=== PATIENT | female | born 1945 | race Caucasian/White ===

== ENCOUNTER 2023-05-12 19:56 | Emergency (ER) | payer OTHER, SELFPAY ==
[2023-05-12 20:11] LABS: % Basophils 0.3 % (0-2); % Eosinophils 0.7 % (0-6); % Immature Granulocytes 1.1 % (0-0.5); % Lymphocytes 7.9 % (20.5-51.1); % Monocytes 6.3 % (1.7-9.3); % Neutrophils 83.7 % (42.2-75.2); Absolute Basophils 0.1 10^3/uL (0-0.2); Absolute Eosinophils 0.1 10^3/uL (0-0.7); Absolute Immature Granulocytes 0.2 10^3/uL (0-0.05); Absolute Lymphocytes 1.2 10^3/uL (1.2-3.4); Absolute Monocytes 0.9 10^3/uL (0.1-0.6); Absolute Neutrophils 12.4 10^3/uL (1.4-6.5); Hematocrit 40.4 % (37.0-47.0); Hemoglobin 13.5 g/dL (12.0-16.0); Mean Corp Hgb Conc. 33.4 g/dL (33.0-37.0); Mean Corpuscular Hgb 28.5 pg (27.0-31.0); Mean Corpuscular Volume 85.2 fL (81.0-99.0); Nucleated Red Blood Cells % 0 %; Platelet Count 371 10^3/uL (130-400); Red Blood Cell Count 4.74 10^6/uL (4.20-5.40); Red Cell Dist. Width 15.1 % (11.5-14.5); White Blood Cell Count 14.9 10^3/uL (4.8-10.8)
[2023-05-12 20:24] LABS: Lactic Acid 1.8 mmol/L (0.7-2.0)
[2023-05-12 20:26] LABS: ALT (SGPT) < 10 U/L (0-35); AST (SGOT) 18 U/L (14-36); Albumin 3.6 g/dl (3.5-5.0); Alkaline Phosphatase 84 U/L (38-126); Blood Urea Nitrogen 37 mg/dl (7-17); Calcium 9.9 mg/dl (8.4-10.2); Carbon Dioxide 20 mmol/L (22-30); Chloride 106 mmol/L (98-107); Glucose 156 mg/dl (70-99); Potassium 3.9 mmol/L (3.5-5.1); Sodium 138 mmol/L (135-145); Total Bilirubin 0.8 mg/dl (0.2-1.3); Total Protein 8.3 g/dl (6.3-8.2); eGFR 35.23
[2023-05-12 20:27] LABS: Lipase 96 U/L (23-300)
[2023-05-12 21:07] VITALS: BP 105/65
[2023-05-12 22:00] VITALS: BP 148/67
--- NOTE | 2023-05-12 22:13 | ED.GENMED ---
History of Present Illness
General
Chief Complaint: Abdominal Symptoms
Source: patient
Time Seen by Provider: 05/12/23 22:05
Nursing documentation reviewed up to this point in time: agreed with
Travel History
Have you had any contact with someone who has COVID-19?: No
Do you have any symptoms of coronavirus? Fever > 100 degrees, chills, cough, shortness of breath, sore throat, loss of taste or smell, muscle aches, or headache?: No
History of Present Illness
History of Present Illness:
This a pleasant 77-year-old female that presents with 5 days of progressively worsening abdominal pain. Patient states that for the last 5 days she has been unable to have a bowel movement. She does report some left lower abdominal pain that is
been present during this time. She did have some nausea without vomiting. Patient does have a history of bowel problems stating that she has had constipation for the last 5 days but prior to that she had nonbloody diarrhea for months. Patient is
on home oxygen and has chronic dyspnea.
Vital signs are stable. Patient not hypoxic
Nursing note reviewed. I agree with nursing documentation up to this point in time.
Home Meds and allergies reviewed.
NUMBER AND COMPLEXITY OF PROBLEMS ADDRESSED AT THE ENCOUNTER
� Chronic conditions affecting care: Dyspnea on home oxygen, hypertension, irregular bowel habits
� Acute Exacerbation and/or Progression of Chronic Illness:
� Differential Diagnosis includes: Constipation, bowel obstruction, diverticulitis
AMOUNT AND/OR COMPLEXITY OF DATA TO BE REVIEWED AND ANALYZED
I performed an independent evaluation of the following and my interpretation is:
EKG:
CT:
X-rays:
Ultrasound:
Laboratory Studies: White blood cell count 14.9, creatinine of 1.5
Other:
Review of other/old records: Previous creatinine on 04/24/2022 was 1.0
Clinical information was obtained by an independent historian:
Prescriptions/Medications Considered but not given:
Further testing considered but not performed: CT scan considered but due to patient's renal function, deferred
RISK OF COMPLICATIONS AND/OR MORBIDITY OR MORTALITY OF PATIENT MANAGEMENT
Social determinants of health affecting care: Good Social Support
Discussion with other providers:
Escalation of care including admission/observation vs risk of discharge considered:
CRITICAL CARE NOTE:
Total Time (exclusive of procedures):
Update:
Past History
Past History
ED Past Medical History: COPD and HTN
ED Past Surgical History: Cholecystectomy and Gynecological
Social History
Tobacco: Former smoker
Alcohol: None
Drug: None
Personal:
Living: with family
Review of Systems
Review of Systems
Allergies reviewed?: Yes
All Other Systems: ROS reviewed and negative except as documented in HPI and ROS
ABD/GI: Reports abdominal pain and constipated; Denies vomiting or diarrhea
: Denies incontinence
Phy Exam
General Physical Exam
General Presentation: well appearing and no apparent distress
General Skin: warm and dry
General Habitus: normal
General Mental: alert
General Hydration: appears well hydrated
ENT Exam
ENT Exam: EOMI, pharynx normal, neck supple and normocephalic
Eye Exam
Eye Exam: PERRL, cornea clear and conjunctiva normal
Cardiovascular Exam
Cardiovascular Exam: regular rate/rhythm, no edema, no murmur and normal peripheral pulses
Pulmonary Exam
Pulmonary Exam: lungs clear, no respiratory distress, no rales, no crackles, no rhonchi, no stridor, no wheezing and no cough
Gastrointestinal Exam
Gastrointestinal Exam: non tender, soft, no organomegaly, no pulsatile mass and non distended
Palpation: left lower quadrant: Mild tenderness
Auscultation of Abdomen: hyperactive
Neurological Exam
Neurological Exam: alert, oriented x3, no motor deficits and speech normal
Musculoskeletal Exam
Musculoskeletal Exam: full ROM and no edema
Skin Exam
Skin Exam: normal color, warm/dry, no rash and no petechia
Psychiatric Exam
Psychiatric Exam: normal mood/affect
Course
Orders/Labs/Results
Orders:
Orders
05/12/23 20:05
Complete Blood Count/With Diff Urgent
Comprehensive Metabolic Panel Urgent
Lactic Acid Urgent
Lipase Urgent
05/12/23 22:23
CR Obstruct Series W/pa Chest Urgent
Comment:
Reason For Exam: Abdominal pain
05/12/23 22:26
0.9% Sodium Chloride 500 ml [Nss] 500 ml IV BOLUS
05/13/23 00:13
Enema- Treatment ONCE
Type: Soap Suds
Abnormal Lab Results
05/12/23
20:05
WBC 14.9 H 10^3/uL
(4.8-10.8)
RDW 15.1 H %
(11.5-14.5)
Abs Immat Gran (auto) 0.2 H 10^3/uL
(0-0.05)
Absolute Neuts (auto) 12.4 H 10^3/uL
(1.4-6.5)
Absolute Monos (auto) 0.9 H 10^3/uL
(0.1-0.6)
Immature Gran % 1.1 H %
(0-0.5)
Neutrophils % 83.7 H %
(42.2-75.2)
Lymphocytes % 7.9 L %
(20.5-51.1)
Carbon Dioxide 20 L mmol/L
(22-30)
BUN 37 H mg/dl
(7-17)
Creatinine 1.5 H mg/dL
(0.6-1.0)
Glucose 156 H mg/dl
(70-99)
Total Protein 8.3 H g/dl
(6.3-8.2)
05/12/23 20:05
05/12/23 20:05
Vital Signs
Initial and Last Documented VS:
Initial Vital Signs
Temp Pulse Resp Pulse Ox
99.9 F 99 25 89
05/12/23 20:00 05/12/23 20:00 05/12/23 20:00 05/12/23 20:00
Last Documented Vital Signs
Temp Pulse Resp BP Pulse Ox
99.9 F 81 21 139/60 93
05/12/23 20:00 05/13/23 02:15 05/13/23 02:00 05/13/23 02:00 05/13/23 01:08
*Critical Care Note
Total Time (30-74mins, 75-104mins- exclusive of procedures): Not Applicable
Update Note
Update Note:
05/13/2023 0242 AM: Patient had several large formed stool bowel movements and feels much better. Wishes to be discharged home. She does not have a ride at this point. She will call for a ride in the morning.
ED Attending Note
-
Portions of this chart may have been created with voice recognition software.� Occasional wrong word or��sound alike� substitutions may have occurred due to the inherent limitations of voice recognition software.
Discharge Plan
Departure
Patient Disposition: Home (Routine Discharge)
Date of Disposition: 05/13/23
Time of Disposition: 02:43
Patient with high blood pressure during this ER visit?: Yes
Condition: Good
Discharge Problem:
Constipation, Abdominal pain
Prescriptions:
No Action
celecoxib 200 MG capsule
200 mg PO DAILY
nifedipine 30 MG tablet extended release
30 mg PO BID
repaglinide 0.5 MG tablet
0.5 mg PO BID@0800,1700
[id number] [Francis (with collagen)] 1 EACH powder in packet
1 ea PO BID
furosemide [Lasix] 40 MG tablet
40 mg PO BID Qty: 35 0RF
Rx Instructions:
Twice daily for 5 days than
Once daily for maintenence
losartan 50 MG tablet
50 mg PO DAILY Qty: 30 0RF
Referrals:
Nicki Yuan DO [Family Provider] -
Activity Restrictions/Additional Instructions:
It was a pleasure meeting you and taking part in your care. We hope for your continued healing and wellness.
Please read discharge instructions in their entirety. However, they are for general education and may not describe your exact diagnosis at discharge. Information on your ER visit and medical conditions were discussed with you along with appropriate
follow up information...
If indicated, please take your medications as instructed and indicated on discharge paperwork.
Please schedule a follow up appointment as directed. Call to schedule an appointment
Please return to the emergency department with ANY change in, persisting, or worsening of symptoms. If any of your symptoms do not improve, or persist, or become more severe within 6-12 hours, please return to the emergency department for further
care.
Please return to the emergency department if you develop a headache, neck pain/stiffness, fever greater than 100.4F, chest pain, shortness of breath, persistent nausea, vomiting, slurred speech, difficulty walking, numbness/tingling, weakness, signs
of infection or any other symptoms that are worrisome to you.
If you have any questions or concerns please do not hesitate to call the Hospital at or E-mail me directly at [email or web address]
Interventions
Interventions:
*Risk Screen - Suicide Last Done: 05/12/23 20:00
*General Assessment Last Done: 05/12/23 19:59
*Neglect/Abuse Screening Last Done: 05/12/23 20:00
ED- Fall Risk Assessment Last Done: 05/12/23 23:11
*ED COVID-19 Vaccine History Last Done: 05/12/23 19:59
SY-Piaeke-Jpfjanrrxt Assessment Last Done: 05/12/23 20:02
[2023-05-12] MEDS: NSS 500 IV (22:30)
[2023-05-12 23:26] VITALS: BP 142/60
[2023-05-13] VITALS: BP 143/64
[2023-05-13 01:08] VITALS: BP 117/82
[2023-05-13 02:00] VITALS: BP 139/60
[2023-05-13 03:00] VITALS: BP 138/51
[2023-05-13] MEDS: CITROMA 300 ML PO (03:06)
[2023-05-13 04:00] VITALS: BP 123/55
[2023-05-13 05:00] VITALS: BP 121/54
== END 2023-05-13 06:08 | disposition home or self-care (01) ==
LOC: EMR 19:56
PROVIDERS: Emergency Medicine; EMERGENCY PHYSICIAN Student in an Organized Health Care Education/Training Program; FAMILY PHYSICIAN Family Medicine
DX: R10.9 Unspecified abdominal pain (principal); K59.00 Constipation, unspecified; I10 Essential (primary) hypertension; Z87.891 Personal history of nicotine dependence
CPT/HCPCS: 99284; 96360; 74022; 80053; 83605; 83690; 85025

== ENCOUNTER → 2023-06-17 10:44 | Outpatient (REF) | payer OTHER, SELFPAY ==
[2023-06-17 11:35] LABS: % Basophils 0.7 % (0-2); % Eosinophils 1.6 % (0-6); % Immature Granulocytes 0.9 % (0-0.5); % Lymphocytes 16.7 % (20.5-51.1); % Neutrophils 75.1 % (42.2-75.2); Absolute Basophils 0.1 10^3/uL (0-0.2); Absolute Eosinophils 0.2 10^3/uL (0-0.7); Absolute Immature Granulocytes 0.1 10^3/uL (0-0.05); Absolute Lymphocytes 2.3 10^3/uL (1.2-3.4); Absolute Monocytes 0.7 10^3/uL (0.1-0.6); Absolute Neutrophils 10.3 10^3/uL (1.4-6.5); Hematocrit 43.8 % (37.0-47.0); Hemoglobin 13.6 g/dL (12.0-16.0); Mean Corp Hgb Conc. 31.1 g/dL (33.0-37.0); Mean Corpuscular Volume 90.1 fL (81.0-99.0); Mean Platelet Volume 8.3 fL (7.4-10.4); Nucleated Red Blood Cells % 0 %; Platelet Count 446 10^3/uL (130-400); Red Blood Cell Count 4.86 10^6/uL (4.20-5.40); Red Cell Dist. Width 15.6 % (11.5-14.5); White Blood Cell Count 13.7 10^3/uL (4.8-10.8)
[2023-06-17 11:50] LABS: Glycohemoglobin (HgbA1c) 6.3 % (4.0-5.6)
[2023-06-17 12:12] LABS: ALT (SGPT) 12 U/L (0-35); AST (SGOT) 18 U/L (14-36); Albumin 4.1 g/dl (3.5-5.0); Alkaline Phosphatase 84 U/L (38-126); Blood Urea Nitrogen 35 mg/dl (7-17); Calcium 10.4 mg/dl (8.4-10.2); Carbon Dioxide 17 mmol/L (22-30); Chloride 109 mmol/L (98-107); Glucose 152 mg/dl (70-99); HDL Cholesterol 55 mg/dl; LDL Cholesterol, Calculated 107 mg/dl; Sodium 140 mmol/L (135-145); Total Bilirubin 0.5 mg/dl (0.2-1.3); Total Cholesterol 187 mg/dl (50-199); Total Protein 8.9 g/dl (6.3-8.2); Triglyceride 129 mg/dl (10-149); Very Low Density Lipoprotein 25 mg/dl (0-30)
[2023-06-17 12:34] LABS: TSH 1.23 uIU/ml (0.47-4.68)
== END ==
LOC: REG 10:44
PROVIDERS: ATTENDING PHYSICIAN Internal Medicine Interventional Cardiology; FAMILY PHYSICIAN Family Medicine
DX: I10 Essential (primary) hypertension (principal); R06.02 Shortness of breath; E11.22 Type 2 diabetes mellitus with diabetic chronic kidney disease
CPT/HCPCS: 36415; 71046; 80053; 80061; 83036; 84443; 85025

== ENCOUNTER → 2023-09-30 11:36 | Outpatient (REF) | payer OTHER, SELFPAY ==
[2023-09-30 12:54] LABS: Hemoglobin 13.3 g/dL (12.0-16.0)
[2023-09-30 13:33] LABS: Blood Urea Nitrogen 29 mg/dl (7-17); Calcium 10.1 mg/dl (8.4-10.2); Carbon Dioxide 16 mmol/L (22-30); Chloride 107 mmol/L (98-107); Glucose 134 mg/dl (70-99); Phosphorus 4.9 mg/dl (2.5-4.5); Potassium 4.4 mmol/L (3.5-5.1); Sodium 138 mmol/L (135-145); eGFR 38.27
[2023-09-30 17:18] LABS: Protein/creatinine Ratio 14.9; Urine Protein 1089 mg/dl
[2023-10-03 08:53] LABS: Intact PTH 137.2 pg/ml (13.6-85.8)
== END ==
LOC: RAD 11:36
PROVIDERS: ATTENDING PHYSICIAN Specialist; FAMILY PHYSICIAN Family Medicine
DX: N18.31 Chronic kidney disease, stage 3a (principal); I10 Essential (primary) hypertension; E83.52 Hypercalcemia
CPT/HCPCS: 36415; 76770; 80048; 82570; 83970; 84100; 84156; 85018

== ENCOUNTER 2024-05-05 21:14 | Inpatient (IN) | payer OTHER, SELFPAY ==
[2024-05-05] VITALS (12 sets, daily range): BP systolic 109–157; BP diastolic 46–75; BMI 35.4
[2024-05-05 17:09] LABS: % Basophils 0.4 % (0-2); % Immature Granulocytes 1.1 % (0-0.5); % Lymphocytes 4.5 % (20.5-51.1); % Monocytes 3.7 % (1.7-9.3); % Neutrophils 90.3 % (42.2-75.2); Absolute Basophils 0.1 10^3/uL (0-0.2); Absolute Immature Granulocytes 0.2 10^3/uL (0-0.05); Absolute Lymphocytes 0.9 10^3/uL (1.2-3.4); Absolute Monocytes 0.8 10^3/uL (0.1-0.6); Absolute Neutrophils 18.3 10^3/uL (1.4-6.5); Hematocrit 41.9 % (37.0-47.0); Hemoglobin 13.4 g/dL (12.0-16.0); Mean Corpuscular Hgb 28.8 pg (27.0-31.0); Mean Corpuscular Volume 89.9 fL (81.0-99.0); Mean Platelet Volume 8.1 fL (7.4-10.4); Nucleated Red Blood Cells % 0 %; Platelet Count 384 10^3/uL (130-400); Red Blood Cell Count 4.66 10^6/uL (4.20-5.40); Red Cell Dist. Width 15.1 % (11.5-14.5); White Blood Cell Count 20.3 10^3/uL (4.8-10.8)
[2024-05-05 17:30] LABS: ALT (SGPT) 11 U/L (0-35); AST (SGOT) 16 U/L (14-36); Alkaline Phosphatase 89 U/L (38-126); Blood Urea Nitrogen 45 mg/dl (7-17); Carbon Dioxide 13 mmol/L (22-30); Chloride 104 mmol/L (98-107); Glucose 172 mg/dl (70-99); Lipase 76 U/L (23-300); Potassium 4.6 mmol/L (3.5-5.1); Sodium 134 mmol/L (135-145); Total Protein 8.4 g/dl (6.3-8.2); eGFR 11.85
[2024-05-05] MEDS: NSS 500 IV (18:21)
[2024-05-05 18:48] LABS: Urine Albumin 4+ (Neg - Trace); Urine Bilirubin Negative (Negative); Urine Character Mucous (Clear); Urine Color Yellow; Urine Glucose Negative (Negative); Urine Ketone Negative (Negative); Urine Leukocyte 3+ (Negative); Urine Nitrite Negative (Negative); Urine Occult Blood 4+ (Negative); Urine Urobilinogen Negative (Neg - 1+)
--- NOTE | 2024-05-05 19:00 | ED.GENMED ---
History of Present Illness
<Malik Pyle MD - Last Filed: 05/05/24 19:45>
General
Chief Complaint: Abdominal Pain
Time Seen by Provider: 05/05/24 17:56
<Celena Salazar NP - Last Filed: 05/05/24 23:11>
General
Source: patient
Exam Limitations: none
Nursing documentation reviewed up to this point in time: agreed with
History of Present Illness
History of Present Illness:
Patient to ED with complaint of LLQ abd. pain. Pain started on Thursday. Denies fever/chills. No n/v/d. Pain does not radiate. Reports she has no appetite but contines to drink water. Brought to ED by friend for eval.
Past History
<Malik Pyle MD - Last Filed: 05/05/24 19:45>
Past History
ED Past Medical History: COPD and HTN
ED Past Surgical History: Cholecystectomy and Gynecological
Social History
Tobacco: Former smoker
Alcohol: None
Drug: None
Personal:
Living: with family
Review of Systems
<Celena Salazar NP - Last Filed: 05/05/24 23:11>
Review of Systems
Allergies reviewed?: Yes
All Other Systems: ROS reviewed and negative except as documented in HPI and ROS
Constitutional: Reports no symptoms
EENT: Reports no symptoms
Respiratory: Reports no symptoms
Cardiac: Reports no symptoms
ABD/GI: Reports abdominal pain (LLQ) and anorexia
: Reports no symptoms
Musculoskeletal: Reports no symptoms
Skin: Reports no symptoms
Neurological: Reports no symptoms
Psychiatric: Reports no symptoms
Phy Exam
<Celena Salazar NP - Last Filed: 05/05/24 23:11>
General Physical Exam
General Presentation: mild distress
General age: appears stated age
General Skin: warm and dry
General Habitus: normal
General Mental: alert
Cardiovascular Exam
Cardiovascular Exam: regular rate/rhythm and no edema
Pulmonary Exam
Pulmonary Exam: lungs clear and no respiratory distress
Gastrointestinal Exam
Gastrointestinal Exam: normal bowel sounds, soft, no organomegaly, non distended and no cva tenderness
Palpation: left upper quadrant: No tenderness, left lower quadrant: Moderate tenderness, right upper quadrant: No tenderness and right lower quadrant: Minimal tenderness
Musculoskeletal Exam
Musculoskeletal Exam: full ROM and neuro vasc intact
Skin Exam
Skin Exam: normal color, warm/dry and no rash
Psychiatric Exam
Psychiatric Exam: normal mood/affect
Course
<Malik Pyle MD - Last Filed: 05/05/24 19:45>
Orders/Labs/Results
Orders:
Orders
05/05/24 Dinner
NPO
Allow oral meds: Yes
Allow clear liquids: No
NPO with Ice Chips: No
05/05/24 16:52
Complete Blood Count/With Diff Urgent
Comprehensive Metabolic Panel Urgent
Lipase Urgent
05/05/24 18:06
CT Abd/pel Without Iv Or Oral Urgent
Comment:
Reason For Exam: LLQ pain, ARF
Bladder Scan- Treatment ONCE
05/05/24 18:07
0.9% Sodium Chloride 500 ml [Nss] 500 ml IV BOLUS
05/05/24 18:12
Morphine Sulfate 2 mg IV NOW STA
Ondansetron Injectable [Zofran] 4 mg IV NOW STA
05/05/24 18:19
Urinalysis Reflex To Culture Urgent
Date Specimen was Collected: 05/05/24
Time Specimen was Collected: 18:18
Urine Microscopic Reflex Cult Urgent
Urine Culture Urgent
DIXON Source: U
Specimen Description:
Date Specimen was Collected: 05/05/24
Time Specimen was Collected: 18:18
05/05/24 19:05
Piperacillin/Tazo 3.375 Gram [Zosyn] 3.375 gram in 50 ml IV NOW
05/05/24 20:25
Dexamethasone Sod Phosphate [Decadron] 20 mg .ROUTE .STK-MED ONE
Fentanyl Citrate/Pf [Sublimaze] 100 mcg .ROUTE .STK-MED ONE
Lidocaine 2% Mpf [Xylocaine Mpf 2%] 100 mg .ROUTE .STK-MED ONE
Ondansetron Injectable [Zofran] 4 mg .ROUTE .STK-MED ONE
Propofol [Diprivan] 20 ml .ROUTE .STK-MED
05/05/24 20:29
Blood Culture Q30M
DIXON Source: Blood/Venous
Specimen Description:
Blood Culture Q30M
DIXON Source: Blood/Venous
Specimen Description:
05/05/24 20:41
Admit/Transfer Patient As Directed
Co-Sign Provider:
Level of Care: Inpatient admission
Assign to:: Telemetry
Physician / Group: tai treviño
Diagnosis: sepsis 2/2 to uti ,left obstr ureteral calc, juan f
Reason for Telemetry: Arrhythmia
Date to Stop Telemetry: 05/08/24
Time to Stop Telemetry: 11:00
Reason for Hospitalization: sepsis 2/2 to uti ,left obstr ureteral calc, juan f
Expected length of stay greater than two midnights?: Yes
ELOS- Estimated Length of Stay in days: 4
I certify the patient meets the requirements for IP care: Yes
Code Status As Directed
Resuscitation Status: Full Code
05/05/24 20:52
PRN Pain Medication Management As Directed
May give lesser potent ordered pain med per pt: Yes
preference::
Protocol:: Medication orders for pain may be administered in a
manner that supports deferring to patient preference
when the pt is:
- Requesting an ordered lesser potent pain medication.
Least to most potent pain medications are defined
as: acetaminophen < NSAID < tramadol < opioids
(morphine, oxycodone, hydromorphone).
- Requesting a lesser dose of the same medication IF
ORDERED.
- Requesting a less intrusive route of administration
if both routes are prescribed by the provider (PO <
IV).
05/05/24 22:12
0.9% Sodium Chloride 1000 ml [Nss] 1,000 ml IV 100 mls/hr
Acetaminophen [Tylenol] 650 mg PO Q4HPRN PRN
Bisacodyl [Dulcolax] 10 mg RECTAL [id number] PRN
Dextrose 50%-Water [Dextrose 50% Syringe] 12.5 grams IV [id number] PRN
Docusate W/Senna [Senokot-S] 1 tablet PO BIDPRN PRN
Ezetimibe [Zetia] 10 mg PO HS
Glucagon [GlucaGen] 1 mg IM PRN PRN
Metoprolol Xl [Toprol Xl] 25 mg PO HS
Polyethylene Glycol Powder [Miralax] 17 grams PO DAILYPRN PRN
05/05/24 22:12
UROLOGY CONSULT Routine
Consulting Provider: Kulwinder Kinsey
Was physician already notified: Yes
Comment: obst left ureter
Activity As Directed
Activity Level: As Tolerated
Bedside Glucose Monitoring As Directed
Frequency: AC&HS
Additional Instructions:: Change to q6h if pt on TPN, tube feeding or not eating
Intake/ Output As Directed
Frequency: Per unit guidelines
Pneumatic Compression Sleeves As Directed
Type: Knee high
Vital Signs As Directed
Frequency: Per unit guidelines
Weight As Directed
Frequency: Daily
Pt Eval And Treat Routine
Activity Level: As Tolerated
DX Deep Vein Thrombosis Video Routine
05/06/24 06:00
Complete Blood Count/With Diff IN AM
Comprehensive Metabolic Panel IN AM
Glycohemoglobin (HgbA1c) IN AM
05/06/24 07:30
Insulin Aspart Corrective Low [Novolog Flexpen-Low Resistance] See Protocol SC AC
05/07/24 06:00
Complete Blood Count/With Diff IN AM
Comprehensive Metabolic Panel IN AM
05/08/24 06:00
Complete Blood Count/With Diff IN AM
Comprehensive Metabolic Panel IN AM
05/08/24 11:00
DC Protocol for Telemetry ONCE
05/09/24 06:00
Complete Blood Count/With Diff IN AM
Comprehensive Metabolic Panel IN AM
Abnormal Lab Results
05/05/24 05/05/24
16:52 18:19
WBC 20.3 H 10^3/uL
(4.8-10.8)
MCHC 32.0 L g/dL
(33.0-37.0)
RDW 15.1 H %
(11.5-14.5)
Abs Immat Gran (auto) 0.2 H 10^3/uL
(0-0.05)
Absolute Neuts (auto) 18.3 H 10^3/uL
(1.4-6.5)
Absolute Lymphs (auto) 0.9 L 10^3/uL
(1.2-3.4)
Absolute Monos (auto) 0.8 H 10^3/uL
(0.1-0.6)
Immature Gran % 1.1 H %
(0-0.5)
Neutrophils % 90.3 H %
(42.2-75.2)
Lymphocytes % 4.5 L %
(20.5-51.1)
Sodium 134 L mmol/L
(135-145)
Carbon Dioxide 13 L* mmol/L
(22-30)
BUN 45 H mg/dl
(7-17)
Creatinine 3.7 H mg/dL
(0.6-1.0)
Glucose 172 H mg/dl
(70-99)
Total Protein 8.4 H g/dl
(6.3-8.2)
Ur Occult Blood Reflex 4+ A
(Negative)
Leukocyte Esterase Rfl 3+ A
(Negative)
Urine RBC 7-10 A /HPF
(0-2)
Urine WBC (Reflex) >100 A /HPF
(0-5)
Urine Bacteria (Reflex) Many A
(Negative)
Urine Albumin (Reflex) 4+ A
(Neg - Trace)
05/05/24 16:52
05/05/24 16:52
Vital Signs
Initial and Last Documented VS:
Initial Vital Signs
Temp Pulse Resp BP Pulse Ox
98.5 F 68 18 120/66 98
05/05/24 16:36 05/05/24 16:36 05/05/24 16:36 05/05/24 16:36 05/05/24 16:36
Last Documented Vital Signs
Temp Pulse Resp BP Pulse Ox
97 F 67 16 142/56 98
05/05/24 22:39 05/05/24 22:39 05/05/24 22:39 05/05/24 22:39 05/05/24 22:39
<Celena Salazar DIRECTOR STYLE - Last Filed: 05/05/24 23:11>
Orders/Labs/Results
Orders:
Orders
05/05/24 Dinner
NPO
Allow oral meds: Yes
Allow clear liquids: No
NPO with Ice Chips: No
05/05/24 16:52
Complete Blood Count/With Diff Urgent
Comprehensive Metabolic Panel Urgent
Lipase Urgent
05/05/24 18:06
CT Abd/pel Without Iv Or Oral Urgent
Comment:
Reason For Exam: LLQ pain, ARF
Bladder Scan- Treatment ONCE
05/05/24 18:07
0.9% Sodium Chloride 500 ml [Nss] 500 ml IV BOLUS
05/05/24 18:12
Morphine Sulfate 2 mg IV NOW STA
Ondansetron Injectable [Zofran] 4 mg IV NOW STA
05/05/24 18:19
Urinalysis Reflex To Culture Urgent
Date Specimen was Collected: 05/05/24
Time Specimen was Collected: 18:18
Urine Microscopic Reflex Cult Urgent
Urine Culture Urgent
DIXON Source: U
Specimen Description:
Date Specimen was Collected: 05/05/24
Time Specimen was Collected: 18:18
05/05/24 19:05
Piperacillin/Tazo 3.375 Gram [Zosyn] 3.375 gram in 50 ml IV NOW
05/05/24 20:25
Dexamethasone Sod Phosphate [Decadron] 20 mg .ROUTE .STK-MED ONE
Fentanyl Citrate/Pf [Sublimaze] 100 mcg .ROUTE .STK-MED ONE
Lidocaine 2% Mpf [Xylocaine Mpf 2%] 100 mg .ROUTE .STK-MED ONE
Ondansetron Injectable [Zofran] 4 mg .ROUTE .STK-MED ONE
Propofol [Diprivan] 20 ml .ROUTE .STK-MED
05/05/24 20:29
Blood Culture Q30M
DIXON Source: Blood/Venous
Specimen Description:
Blood Culture Q30M
DIXON Source: Blood/Venous
Specimen Description:
05/05/24 20:41
Admit/Transfer Patient As Directed
Co-Sign Provider:
Level of Care: Inpatient admission
Assign to:: Telemetry
Physician / Group: tai trevñio
Diagnosis: sepsis 2/2 to uti ,left obstr ureteral calc, juan f
Reason for Telemetry: Arrhythmia
Date to Stop Telemetry: 05/08/24
Time to Stop Telemetry: 11:00
Reason for Hospitalization: sepsis 2/2 to uti ,left obstr ureteral calc, juan f
Expected length of stay greater than two midnights?: Yes
ELOS- Estimated Length of Stay in days: 4
I certify the patient meets the requirements for IP care: Yes
Code Status As Directed
Resuscitation Status: Full Code
05/05/24 20:52
PRN Pain Medication Management As Directed
May give lesser potent ordered pain med per pt: Yes
preference::
Protocol:: Medication orders for pain may be administered in a
manner that supports deferring to patient preference
when the pt is:
- Requesting an ordered lesser potent pain medication.
Least to most potent pain medications are defined
as: acetaminophen < NSAID < tramadol < opioids
(morphine, oxycodone, hydromorphone).
- Requesting a lesser dose of the same medication IF
ORDERED.
- Requesting a less intrusive route of administration
if both routes are prescribed by the provider (PO <
IV).
05/05/24 22:12
0.9% Sodium Chloride 1000 ml [Nss] 1,000 ml IV 100 mls/hr
Acetaminophen [Tylenol] 650 mg PO Q4HPRN PRN
Bisacodyl [Dulcolax] 10 mg RECTAL [id number] PRN
Dextrose 50%-Water [Dextrose 50% Syringe] 12.5 grams IV [id number] PRN
Docusate W/Senna [Senokot-S] 1 tablet PO BIDPRN PRN
Ezetimibe [Zetia] 10 mg PO HS
Glucagon [GlucaGen] 1 mg IM PRN PRN
Metoprolol Xl [Toprol Xl] 25 mg PO HS
Polyethylene Glycol Powder [Miralax] 17 grams PO DAILYPRN PRN
05/05/24 22:12
UROLOGY CONSULT Routine
Consulting Provider: Kulwinder Kinsey
Was physician already notified: Yes
Comment: obst left ureter
Activity As Directed
Activity Level: As Tolerated
Bedside Glucose Monitoring As Directed
Frequency: AC&HS
Additional Instructions:: Change to q6h if pt on TPN, tube feeding or not eating
Intake/ Output As Directed
Frequency: Per unit guidelines
Pneumatic Compression Sleeves As Directed
Type: Knee high
Vital Signs As Directed
Frequency: Per unit guidelines
Weight As Directed
Frequency: Daily
Pt Eval And Treat Routine
Activity Level: As Tolerated
DX Deep Vein Thrombosis Video Routine
05/06/24 06:00
Complete Blood Count/With Diff IN AM
Comprehensive Metabolic Panel IN AM
Glycohemoglobin (HgbA1c) IN AM
05/06/24 07:30
Insulin Aspart Corrective Low [Novolog Flexpen-Low Resistance] See Protocol SC AC
05/07/24 06:00
Complete Blood Count/With Diff IN AM
Comprehensive Metabolic Panel IN AM
05/08/24 06:00
Complete Blood Count/With Diff IN AM
Comprehensive Metabolic Panel IN AM
05/08/24 11:00
DC Protocol for Telemetry ONCE
05/09/24 06:00
Complete Blood Count/With Diff IN AM
Comprehensive Metabolic Panel IN AM
Abnormal Lab Results
05/05/24 05/05/24
16:52 18:19
WBC 20.3 H 10^3/uL
(4.8-10.8)
MCHC 32.0 L g/dL
(33.0-37.0)
RDW 15.1 H %
(11.5-14.5)
Abs Immat Gran (auto) 0.2 H 10^3/uL
(0-0.05)
Absolute Neuts (auto) 18.3 H 10^3/uL
(1.4-6.5)
Absolute Lymphs (auto) 0.9 L 10^3/uL
(1.2-3.4)
Absolute Monos (auto) 0.8 H 10^3/uL
(0.1-0.6)
Immature Gran % 1.1 H %
(0-0.5)
Neutrophils % 90.3 H %
(42.2-75.2)
Lymphocytes % 4.5 L %
(20.5-51.1)
Sodium 134 L mmol/L
(135-145)
Carbon Dioxide 13 L* mmol/L
(22-30)
BUN 45 H mg/dl
(7-17)
Creatinine 3.7 H mg/dL
(0.6-1.0)
Glucose 172 H mg/dl
(70-99)
Total Protein 8.4 H g/dl
(6.3-8.2)
Ur Occult Blood Reflex 4+ A
(Negative)
Leukocyte Esterase Rfl 3+ A
(Negative)
Urine RBC 7-10 A /HPF
(0-2)
Urine WBC (Reflex) >100 A /HPF
(0-5)
Urine Bacteria (Reflex) Many A
(Negative)
Urine Albumin (Reflex) 4+ A
(Neg - Trace)
05/05/24 16:52
05/05/24 16:52
Vital Signs
Initial and Last Documented VS:
Initial Vital Signs
Temp Pulse Resp BP Pulse Ox
98.5 F 68 18 120/66 98
05/05/24 16:36 05/05/24 16:36 05/05/24 16:36 05/05/24 16:36 05/05/24 16:36
Last Documented Vital Signs
Temp Pulse Resp BP Pulse Ox
97 F 67 16 142/56 98
05/05/24 22:39 05/05/24 22:39 05/05/24 22:39 05/05/24 22:39 05/05/24 22:39
<Celena Salazar NP - Last Filed: 05/05/24 23:11>
*Radiology
Radiology exam reviewed: radiology read reviewed
*Pulse Oximetry
Patient hypoxic: no
*Critical Care Note
Total Time (30-74mins, 75-104mins- exclusive of procedures): Not Applicable
<Celena Salazar NP - Last Filed: 05/05/24 23:11>
Update Note
Update Note:
CT and lab results discussed with patient. Dr. Kinsey notified of CT findings and will plan for stent tonight. Patient remains afebrile, comfortable. Case discussed wtih Dr. Pyle who also examined this pateint.
ED Attending Note
<Malik Pyle MD - Last Filed: 05/05/24 19:45>
ED Attending Note
Patient seen and examined by attending physician: Yes
ED Attending Note:
I have seen and evaluated the patient with a [id number] encounter. I have spoken to the advance practicer provider and involved in the medical history, the physical exam, medical decision making.
Evaluation and management service: agree unless noted differently below.
Results interpretation: agree unless noted differently below.
Focused HPI: 78-year-old female with history as noted presents to the ER for evaluation of abdominal pain. Patient reports symptoms have been ongoing for the past 4 to 5 days. She says she has had similar symptoms in the past and was prescribed
Bentyl by her PCP. She says initially when symptoms started they resolved after a dose of Bentyl but for the past 3 days they have been refractory to Bentyl which prompted ER visit. She reports pain is located in the left lower quadrant does not
radiate. She denies any associated diarrhea or constipation. She did have 1 episode of vomiting this week but no recurrence denies nausea here. She denies any fevers or chills. She denies any dysuria, hematuria, change in frequency. She has had
decreased p.o. intake due to her pain. No fever or chills. Prior surgical history includes hysterectomy, cholecystectomy, hernia repair, abdominal abscess.
Physical exam: Awake alert not in distress. Vital signs normal. Abdomen soft, mildly distended and tympanic. Diffusely tender maximal in the left lower quadrant but no palpable mass appreciated.
Medical Decision Makin-year-old female presents with persistent abdominal pain for the past few days. Vitals and exam as above. Her labs were significant for leukocytosis to 20.3 with predominant neutrophils. Her CMP shows acute renal
failure with creatinine of 3.7, BUN 45; acceptable potassium. She has a metabolic acidosis likely secondary to uremia. Her LFTs are normal. Her urinalysis concerning for infection. Bladder scan shows no retention. She is pending CT of the abdomen
pelvis. IV fluids in progress. Anticipate admission pending rest of workup.
CT shows staghorn calculus on the right, obstructive ureteral stone on the left with hydronephrosis. With renal failure and UTI and now obstructive stone DIRECTOR STYLE discussed with urology for consultation. Patient was given Zosyn, fluids. Admit to
hospitalist service.
-
Portions of this chart may have been created with voice recognition software.� Occasional wrong word or��sound alike� substitutions may have occurred due to the inherent limitations of voice recognition software.
Discharge Plan
Departure
Patient Disposition: Admit
Date of Disposition: 05/05/24
Time of Disposition: 20:09
Presentation/result/management discussed w/ accepting MD/DO: Hospitalist
Patient with high blood pressure during this ER visit?: Yes
Condition: Fair
Covid-19: Not Applicable
Discharge Problem:
Hydronephrosis with urinary obstruction due to renal calculus, Acute renal failure, UTI (urinary tract infection)
Interventions
Interventions:
*Risk Screen - Suicide Last Done: 05/05/24 16:36
*General Assessment Last Done: 05/05/24 16:36
*Neglect/Abuse Screening Last Done: 05/05/24 16:36
ED- Fall Risk Assessment Last Done: 05/05/24 18:03
*ED COVID-19 Vaccine History Last Done: 05/05/24 16:36
*Nursing Disposition Last Done: 05/05/24 20:46
CS-Zdciae-Wvogxrmyej Assessment Last Done: 05/05/24 18:03
Discharge Date and Time
Discharge Date/Time: 05/05/24 20:48
[2024-05-05 19:01] LABS: Urine Bacteria Many (Negative); Urine Mucus Many; Urine White Cell >100 /HPF (0-5)
[2024-05-05] MEDS: ZOSYN 50 IV (19:28)
--- NOTE | 2024-05-05 20:33 | CONS.URO ---
Consultation
-
Date/Time Consultation Requested: 05/05/241954
Date/Time Consultation Performed: 05/05/242014
Requesting Provider: ED
Performing Provider: Tio
Reason for Consultation: Left ureteral stone, Urosepsis
Medical History
Past Medical History
Past Medical History: Other (COPD, Kidney stones, obesity and HTN )
Past Surgical History: Other ( Cholecystectomy, kidney stone surgery and Gynecological)
Social History
Tobacco: Non-smoker
Family History
Family History: Reviewed & Not Pertinent
Allergies/Home Medications
Allergies
Allergy/AdvReac Type Severity Reaction Status Date / Time
adhesive Allergy Rash Verified 05/05/24 16:39
bee venom protein (honey bee) Allergy Difficulty Verified 05/05/24 16:39
Breathing
Iodinated Contrast Media Allergy RASH, SOB Verified 05/05/24 16:39
latex Allergy RASH, Verified 05/05/24 16:39
ITCHING
levofloxacin [From Levaquin] Allergy Unknown Verified 05/05/24 16:39
nylon Allergy Rash, Verified 05/05/24 16:39
Itching
wool Allergy Rash, Verified 05/05/24 16:39
Itching
Hot Peppers Allergy SOB, Uncoded 05/05/24 16:39
Facial
swell
papertape Allergy Skin Uncoded 05/05/24 16:39
Breakdown
seasonal Allergy post nasal Uncoded 05/05/24 16:39
drip,congestion
Walnuts Allergy Difficulty Uncoded 05/05/24 16:39
Breathing
Home Medications
�Medication �Instructions �Recorded �Confirmed �Type
celecoxib 200 mg capsule 200 mg PO MOFR@0900,2100 05/10/19 05/05/24 History
repaglinide 0.5 mg tablet 0.5 mg PO BID@1100,1800 05/10/19 05/05/24 History
dicyclomine 20 mg tablet 10 mg PO Q6HPRN PRN stomach pain 05/05/24 05/05/24 History
ezetimibe 10 mg tablet 10 mg PO HS 05/05/24 05/05/24 History
furosemide 20 mg tablet 10 mg PO HS 05/05/24 05/05/24 History
losartan 50 mg tablet 25 mg PO DAILY 05/05/24 05/05/24 History
metoprolol succinate 25 mg 25 mg PO HS 05/05/24 05/05/24 History
tablet,extended release 24 hr
Physical Exam
Vital Signs
Vital Signs
Temp Pulse Resp BP Pulse Ox
98.5 F 68 18 140/56 94
05/05/24 16:36 05/05/24 16:36 05/05/24 16:36 05/05/24 20:00 05/05/24 20:30
Lab / Testing Results
Laboratory Results
05/05/24 16:52
05/05/24 16:52
Physical Exam
adult female in ED bed
General: No Apparent Distress
GI: Other (pannus, soft)
Genito-urinary: Costovertebral Angle Tend (on left)
Skin: Warm
Neuro: Awake, Alert and Oriented
Psych: Calm and Intact Judgement
Assessment / Plan
-
1. Left Ureteral Calculus, ~ 6mm, middle Obstructing
2. Acute on chronic renal insufficiency
3. Right Staghorn renal calculus
4. LEft Renal calculi
5. Suspected UTI with possible evolving urosepsis
will bring emergently to OR for dislodgement of obstructing stone/placement of ureteral stent -- consent signed in presence of CASSANDRA, DEPUTY SHERIFF
Data Reviewed
-
CT Scan: Image personally visualized and interpreted and Discussed with Patient
Lab Data: Labs Reviewed
Old Records: Reviewed
--- NOTE | 2024-05-05 20:39 | HPS.HSE ---
Family Physician
-
Family Physician: Nicki Yuan
Chief Complaint
-
left anterior abd pain nausea with vomiting 2 days ago
History of Present Illness
78-year-old female complaining of left anterior lower abdominal pain acute onset in the morning 2 days ago with 2 episodes of vomiting. She reports she took Bentyl to help alleviate the pain which did not help. Due to the episode of vomiting she
decreased her water intake to 32 ounces each day for the last 2 days and was not eating she did hold her Lasix and repaglinide. She denies fever, chills, dysuria, frequency, urgency, hematuria, current vomiting, diarrhea, chest pain, palpitations,
cough, shortness of breath, rash, recent illness. She has past medical history of CKD 3B and follows with Dr. Guerra from nephrology other past medical history includes renal staghorn calculi right kidney, HTN, HLD, DM 2, gout, uterine CA status
post hysterectomy, arthritis, [place], anemia, abdominal hernia repair with mesh 1994, removed infected mesh from hernia repair 2018.
Medical History
Past Medical History
Past Medical History: Reports Other
Additional Past Medical History:
CKD 3B and follows with Dr. Guerra from nephrology
Renal calculi right kidney
HTN
HLD
DM 2
Gout
Uterine CA status post hysterectomy
Arthritis
[place]
Anemia
Abdominal hernia repair with mesh 1994
Removed infected mesh from hernia repair 2018
Former sleep apnea resolved after alone weight loss 190 pounds in 5 years she states it took her
Past Surgical History: Reports Other
Additional Past Surgical History:
Hysterectomy secondary to cervical cancer
D&C
Abdominal hernia repair with mesh 1994
Removal of infected mesh from hernia repair 2018
Cholecystectomy
Abscess 2006
Carpal tunnel syndrome
Social History
Tobacco: Non-smoker
Alcohol: None
Drug: None
Personal: Single
Living: Alone
Employment: Retired
Family History
Family History: Other (Mother age 80s killed herself by overdose on pain meds, father lungs CA age 78 Sister living with history of CKD and lupus 1 brother in [place] war, son DM 2)
Allergies / Home Medications
Allergies reflects when Allergies were last updated in [employer].
Home Medications with original date entered in [employer]
Allergy/Medication List:
Allergies
Allergy/AdvReac Type Severity Reaction Status Date / Time
adhesive Allergy Rash Verified 05/05/24 16:39
bee venom protein (honey bee) Allergy Difficulty Verified 05/05/24 16:39
Breathing
Iodinated Contrast Media Allergy RASH, SOB Verified 05/05/24 16:39
latex Allergy RASH, Verified 05/05/24 16:39
ITCHING
levofloxacin [From Levaquin] Allergy Unknown Verified 05/05/24 16:39
nylon Allergy Rash, Verified 05/05/24 16:39
Itching
wool Allergy Rash, Verified 05/05/24 16:39
Itching
Hot Peppers Allergy SOB, Uncoded 05/05/24 16:39
Facial
swell
papertape Allergy Skin Uncoded 05/05/24 16:39
Breakdown
seasonal Allergy post nasal Uncoded 05/05/24 16:39
drip,congestion
Walnuts Allergy Difficulty Uncoded 05/05/24 16:39
Breathing
Home Medications
celecoxib 200 mg capsule 200 mg PO MOFR@0900,2100 05/10/19
repaglinide 0.5 mg tablet 0.5 mg PO BID@1100,1800 05/10/19
dicyclomine 20 mg tablet 10 mg PO Q6HPRN PRN stomach pain 05/05/24
ezetimibe 10 mg tablet 10 mg PO HS 05/05/24
furosemide 20 mg tablet 10 mg PO HS 05/05/24
losartan 50 mg tablet 25 mg PO DAILY 05/05/24
metoprolol succinate 25 mg tablet,extended release 24 hr 25 mg PO HS 05/05/24
Review of Systems
-
History Source: Patient
A 12 point ROS was completed and negative except as noted: Yes
Constitutional: Denies Fever or Chills
EENT: Denies Sore Throat or Runny Nose
Respiratory: Denies Cough or Trouble Breathing
Cardiac: Denies Chest Pain or Diaphoresis
Abdomen/GI: Reports Abdominal Pain, Nausea and Vomiting (X 2 2 days ago); Denies Diarrhea, Constipated, Bloody Stools or Black Stools
: Reports Flank Pain (Left); Denies Dysuria, Frequency, Incontinence, Urgency or Dark Urine
Musculoskeletal: Denies Joint Pain or Edema
Skin: Denies Itching or Rash
Neurological: Denies Dizzy or Headache
Endocrine: Reports No Symptoms
Hematologic/Lymphatic: Reports No Symptoms
Psych: Reports Calm
Physical Exam
Vital Signs
Vital Signs
Temp Pulse Resp BP Pulse Ox
98.5 F 68 18 140/56 94
05/05/24 16:36 05/05/24 16:36 05/05/24 16:36 05/05/24 20:00 05/05/24 20:30
Physical Exam
General: Conversant and Pain; No Fever or Chills
HEENT: NormoCephalic, Anicteric, PERRLA, [place] Conjunctivae and No Ptosis
Respiratory: Clear; No Wheezes, Rales or Rhonchi
Cardiac: S1/S2 and Regular Rhythm; No Murmur, Rub, Gallop or Peripheral Edema
Breast: Deferred by me
GI: Soft, Non Distended, Normal Bowel Sounds, Tender (Left anterior abdomen, left flank) and No Hepatosplenomegaly
Rectal: Deferred by Provider
Genito-urinary: Costovertebral angle tend (Left flank to left anterior abdomen)
Musculoskeletal: No Clubbing, No Cyanosis and No Edema
Skin: Warm and Dry; No Rash or Jaundice
Neuro: AO x 3, No Motor Deficits, Nonfocal/grossly intact, Cranial Nerves Intact and No Sensory Deficits; No Slurred Speech, Facial Droop, Tremors or Sedated
Psych: Calm
Laboratory Results
-
05/05/24 16:52
05/05/24 16:52
Laboratory Results
Total Bilirubin 1.0 mg/dl (0.2-1.3) 05/05/24 16:52
AST 16 U/L (14-36) 05/05/24 16:52
ALT 11 U/L (0-35) 05/05/24 16:52
Alkaline Phosphatase 89 U/L (38-126) 05/05/24 16:52
Lipase 76 U/L (23-300) 05/05/24 16:52
Data Reviewed
-
CT Scan: Report Reviewed by me
Lab Data: Labs Reviewed by me
Impression/Plan
-
Impression/plan:
Admit to telemetry
#SIRS 2/2 UTI from obstructing distal left ureteral calculus
#Staghorn calculus involving the right kidney-discussed with patient by urology to address at later date
WBC 20.3 with left shift, 98.5, HR 60, 140/56
-UA, TEXTILE DESIGNER, blood cultures x 2
-IV Zosyn given in ER x 1 dose
-Continue Rocephin 1 g daily
-Consult urology for OR tonight
-IV NSS 1 L given in ER
-continue IV NSS 100 cc/h
-IV Zofran as needed nausea vomiting
-IV Dilaudid as needed moderate and severe pain
Follow CBC, CMP
- CT abdomen pelvis without IV or oral contrast:
1. Obstructing distal left ureteral calculus. Moderate to severe dilation of the more superior left ureter and pelvicalyceal system. Numerous left-sided nephroliths.
2. Staghorn calculus involving the right kidney with significant progression since examination March 07, 2019. Increased fat density within the central renal hilum and there is stranding surrounding
the left renal pelvis and proximal ureter. 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
3. No evidence for right ureteral calculus.
4. Bladder calculi are present.
5. Coronary artery calcifications are present. Please correlate with symptoms of and risk factors for coronary artery disease, with further workup as clinically appropriate.
6. Small cystic foci within the distal tail the pancreas, the largest measuring up to 1.5 cm. In 78-year-old patient, no further imaging follow-up is felt to be needed for these probably benign cystic foci.
# JEWELL 2/2 obstructing calculus on Chronic CKD 3B
follows with Dr. Guerra from nephrology
-Creat 3.7 > 1.4 on 09/30/2023
-IV NSS 1 L given in ER
-Continue IV NSS 100 cc/h
-Follow BMP
#DM2
Accu-Cheks with SSI, check HgbA1c
-Patient held repaglinide since 05/03/2024
-Hold repaglinide
#HTN-benign
BP 140/56
-Hold losartan 25 mg daily
# HLD
-Continue Zetia 10 mg at bedtime
#Gout
-No reported meds
-
#Arthritis-unknown type
-Hold Celebrex 200 mg Thursday
[place]
Anemia
Other PMH:
Uterine CA status post hysterectomy
Abdominal hernia repair with mesh 1994
Removed infected mesh from hernia repair 2018
DVT prophylaxis
SCDs
Full code
--- NOTE | 2024-05-05 21:20 | W.PN.UPDATE ---
Update Note
Progress Note Update
This is an addendum to the H&P written by Alisha Pérez on 05/05/2024.� Patient seen and examined independently with SENIOR CIVIL ENGINEER.
73-year-old female past medical history of hypertension,�diabetes, nephrolithiasis, obesity, hernia surgery status post mesh status post removal, presenting with left lower quadrant abdominal pain.� No fevers or chills or nausea vomiting or diarrhea.
Labs show leukocytosis 20.� Metabolic acidosis with bicarb of 13.� Creatinine of 3.7 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
xanthogranulomatous pyelonephritis.
Urinalysis shows greater than 100 WBC.
Patient with obstructive ureteral calculus and complicated UTI.� Also with JEWELL on CKD.
Urine culture, blood cultures pending.� Prior�abdominal culture�grew Proteus mirabilis, Morganella morganii, Enterococcus faecalis.
IV fluids.� Ceftriaxone.� NPO.� Urology consulted for stent placement tonight.� Hold celecoxib,�losartan, Lasix.
--- NOTE | 2024-05-05 21:40 | W.IMMPOSTOP ---
Surgical Immed Post Op Note
-
Primary Surgeon: Tio
Pre-op Diagnoses: 1. Left Ureteral Calculus, ~ 6mm, middle Obstructing
2. Acute on chronic renal insufficiency
3. Right Staghorn renal calculus
4. Left Renal calculi
5. Suspected UTI with possible evolving urosepsis
Post-op Diagnosis: same
Procedure Performed: cystoscopy, stone dislodgement, stenting
Anesthesia Type: gen/LMA
Specimen / Cultures: none
Estimated Blood Loss: none
Complications: none
Operative Findings:
1. obstructing left mid-ureteral stone
2. bladder calculi
3. purulent urine
Drains/tubes:
left ureteral stent
Novoa
[2024-05-05 22:17] LABS: Glucose - Point of Care 128 mg/dl (70-99)
[2024-05-05] MEDS: ROCEPHIN 1000 MG IV (22:39)
[2024-05-05] MEDS: STERILE WATER FOR INJECTION 10 ML IV (23:11)
[2024-05-05] MEDS: NSS 1000 IV (23:12)
[2024-05-05] MEDS: ZETIA 10 MG PO (23:14)
[2024-05-05] MEDS: TOPROL XL 25 MG PO (23:14)
--- NOTE | 2024-05-05 23:27 | PTCARENOTE ---
Pt arrive to [facility] at 2250 from PACU in a bed. Pt on 2L O2 with a bhatia. Admission questions answered and full head to toe assessed. Stage 2 pressure wound located on sacrum. Pt oriented to room and call matias. Bed locked and in lowest position.
Care ongoing.
[2024-05-05 23:54] LABS: Glucose - Point of Care 139 mg/dl (70-99)
[2024-05-06] VITALS (9 sets, daily range): BP systolic 108–162; BP diastolic 54–78; PULSE 74; O2SAT 93; BMI 34.7
[2024-05-06 06:19] LABS: % Basophils 0.2 % (0-2); % Immature Granulocytes 0.9 % (0-0.5); % Monocytes 0.8 % (1.7-9.3); % Neutrophils 93.1 % (42.2-75.2); Absolute Immature Granulocytes 0.1 10^3/uL (0-0.05); Absolute Lymphocytes 0.7 10^3/uL (1.2-3.4); Absolute Monocytes 0.1 10^3/uL (0.1-0.6); Absolute Neutrophils 13.3 10^3/uL (1.4-6.5); Hemoglobin 11.7 g/dL (12.0-16.0); Mean Corp Hgb Conc. 31.6 g/dL (33.0-37.0); Mean Corpuscular Hgb 28.1 pg (27.0-31.0); Mean Corpuscular Volume 88.9 fL (81.0-99.0); Mean Platelet Volume 8.6 fL (7.4-10.4); Nucleated Red Blood Cells % 0 %; Platelet Count 327 10^3/uL (130-400); Red Blood Cell Count 4.16 10^6/uL (4.20-5.40); White Blood Cell Count 14.3 10^3/uL (4.8-10.8)
[2024-05-06 07:09] LABS: ALT (SGPT) < 10 U/L (0-35); AST (SGOT) 17 U/L (14-36); Albumin 3.6 g/dl (3.5-5.0); Alkaline Phosphatase 73 U/L (38-126); Blood Urea Nitrogen 52 mg/dl (7-17); Calcium 9.2 mg/dl (8.4-10.2); Carbon Dioxide 14 mmol/L (22-30); Chloride 107 mmol/L (98-107); Estimated Creatinine Clearance 12 ml/min; Glucose 159 mg/dl (70-99); Potassium 5.5 mmol/L (3.5-5.1); Sodium 137 mmol/L (135-145); Total Bilirubin 0.8 mg/dl (0.2-1.3); Total Protein 7.7 g/dl (6.3-8.2); eGFR 13.11
[2024-05-06 07:26] LABS: Glucose - Point of Care 162 mg/dl (70-99)
--- NOTE | 2024-05-06 07:58 | W.PN.URO.CBU ---
Today's Communication / Plan
-
rec 3 week course of po abx
pt to f/u as outpatient to consider further surgical intervention for numerous stones
Assessment / Plan
-
improved
Diagnosis
-
Date of Service: May 06, 2024
-
Patient Diagnosis:
1. Left Ureteral Calculus, ~ 6mm, middle Obstructing s/p emergent left ureteral stenting 05/05/2024
2. Acute on chronic renal insufficiency
3. Right Staghorn renal calculus/XGP
4. Left Renal calculi
5. Chronic polymicrobial UTI including Proteus with possible evolving urosepsis
Post Op Day: 1
Objective
-
Vital Signs
Temp Pulse Resp BP Pulse Ox
97.7 F 67 17 142/67 96
05/06/24 03:10 05/06/24 03:10 05/06/24 03:10 05/06/24 03:10 05/06/24 03:10
Intake and Output
05/05/24 05/06/24 05/07/24
06:59 06:59 06:59
Intake Total 200 / 200
Balance 200 / 200
Intake:
IV fluids (Total) 200 / 200
nss 200 / 200
Laboratory Results
05/06/24 04:35
05/06/24 04:35
Physical Exam
-
General - well developed, well nourished, no acute distress
Chest - clear bilaterally
Abdomen - soft, non-tender, positive bowel sounds, no CVAT, no incisional pain or distention
Genitalia - normal
Rectal - normal
Skin - warm & dry with no rash
Neuro - AOx3, no motor deficits
Extremities - no clubbing, no cyanosis, no edema
Incision - clean, dry
Dressing - clean, dry, intact
[2024-05-06] MEDS: NOVOLOG FLEXPEN-LOW RESISTANCE SC (09:29)
[2024-05-06] MEDS: SODIUM BICARBONATE 1150 MEQ IV ×2 (09:30→23:08)
--- NOTE | 2024-05-06 09:45 | W.PN.HOSP.TC ---
Addendum entered and electronically signed by Alycia Cartwright MD 05/06/24 16:59:
# SIRS with leukocytosis
Addendum entered and electronically signed by Alycia Cartwright MD 05/06/24 16:53:
# Sacrum Stage 2 Pressure Injury, POA
Original Note:
Today's Communication/Plan
-
see A/P
Assessment / Plan
Assessment / Plan
HPI: 73-year-old female past medical history of hypertension,�diabetes, nephrolithiasis, obesity, hernia surgery status post mesh status post removal, presented with left lower quadrant abdominal pain.�
Labs show leukocytosis 20.� Metabolic acidosis with bicarb of 13.� Creatinine of 3.7 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
xanthogranulomatous pyelonephritis.
Urinalysis shows greater than 100 WBC.
A/P:
# Sepsis POA 2/2 complicated UTI from obstructive L kidney stone
# Staghorn calculus involving the right kidney, to be addressed at later date
Follow Urine culture, blood cultures
Cont Ceftriaxone.�
s/p emergent OR for stent placement
Cont bhatia for now
Hold SLUDGE FILTRATION ATTENDANT celecoxib,�losartan, Lasix for now
PT OT eval
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
# Metabolic acidosis
# Mild hyperkalemia, K at 5.5 today
SCr 3.7 on admission -> 3.4; from 1.4 baseline
Continue IVF changed to NSS with bicarb
# DM2
Accu-Cheks with SSI,
check HgbA1c
Patient held repaglinide since Thursday05/03/2024, cont to hold
# HTN-benign
Hold losartan 25 mg daily
cont SLUDGE FILTRATION ATTENDANT Toprol
IV hydralazine PRN
# HLD
Continue Zetia 10 mg at bedtime
# Gout
No reported meds
# Arthritis-unknown type
Hold Celebrex 200 mg Thursday
DVT prophylaxis: add HSQ to SCD
Full code
Anticipated Discharge: 24 - 48 hours
Subjective/Interval History
-
Date of Service: May 06, 2024
Objective Data
-
Labs:
Laboratory Results
05/06/24
04:35
WBC 14.3 H
Hgb 11.7 L
Hct 37.0
Plt Count 327
Sodium 137
Potassium 5.5 H
Chloride 107
Carbon Dioxide 14 L*
BUN 52 H
Creatinine 3.4 H
Glucose 159 H
Calcium 9.2
Total Bilirubin 0.8
AST 17
ALT < 10
Alkaline Phosphatase 73
Vital Signs:
Vital Signs
Temp Pulse Resp BP Pulse Ox
37.0 C 75 16 151/59 92
05/06/24 07:30 05/06/24 07:30 05/06/24 07:30 05/06/24 07:30 05/06/24 07:30
I&O
05/05/24 05/06/24 05/07/24
06:59 06:59 06:59
Intake Total 200 / 200
Balance 200 / 200
Review of Systems
-
All other systems: Reviewed and negative
Genitourinary: Reports Other (mild L sided abd pain)
Physical Exam
-
General: Well Developed, Well Nourished, No Apparent Distress, Comfortable and Conversant; Negative Respiratory Distress
HEENT: Normocephalic, Atraumatic, Nose Appears Normal and Ears Appear Normal; Negative Oxygen
Respiratory: Clear to Auscultation and Non Labored Respirations; Negative Accessory Resp Muscle Use
Cardiac: Regular Rhythm and S1/S2
GI: Soft, Nontender, Nondistended and Normal Bowel Sounds
Genito-urinary: Bhatia
Skin: Warm and Dry
Neuro: Awake, Alert, Oriented and AO x 3
Psych: Calm and Intact Judgement/Insight
Data Reviewed
-
CT Scan: Report Reviewed by me
Labs: Labs Reviewed by me
--- NOTE | 2024-05-06 10:48 | CM ---
road manager reviewed patient's chart and met with patient and patient lives alone in a one story home with no steps to enter, patient is independent with adl's and uses a cane with ambulation,
PCP: Dr Meche Yuan
Pharmacy: [facility]
Plan; Home no needs when stable.
[2024-05-06 12:48] LABS: Glucose - Point of Care 241 mg/dl (70-99)
[2024-05-06] MEDS: APRESOLINE 5 MG IV (13:54)
[2024-05-06] MEDS: NOVOLOG FLEXPEN-LOW RESISTANCE 3 UNITS SC (13:54)
--- NOTE | 2024-05-06 15:32 | PN.CDI ---
CDI
- -
CDI:
Physician Documentation Request
Admit Date: 05/05/24 21:14
Dear Doctor Gabbie,
Clinical Indicators:
Patient admitted with sepsis from UTI/obstructive kidney stone.
05/05 RN Skin/wound assessment: Sacrum Stage 2 Pressure Injury, POA
Treatment: Silicone border foam dressing
Physician documentation of the type and location of wounds is required for compliant documentation. Based on the above clinical findings and your assessment, please provide the following in your progress note:
1. Location of the ulcer/wound, including laterality.
2. Type (etiology) of ulcer/wound:
- Pressure (decubitus) ulcer
- Other
- Unable to determine
3. If a pressure ulcer, please also include the stage* of the ulcer:
- Stage 1 - Skin intact, non-blanchable redness
- Stage 2 - Partial thickness loss of dermis, includes intact or open blister
- Stage 3 - Full thickness tissue not including bone, tendon or muscle
- Stage 4 - Full thickness tissue loss, including exposed bone, tendon or muscle
- Unstageable - Full thickness loss in which the base of the ulcer is covered by slough (yellow, don, lorenzo, green or brown) and/or eschar (don, brown or black) in the wound bed.
- Unable to determine
Use of terms such as suspected, likely, concern for, or probable (associated with a specific diagnosis that is being evaluated, monitored, or treated as if it exists) are acceptable and can be coded in the inpatient setting, when documented at the
time of discharge.
Thank you,
Ayesha Roman RN BSN
CDI Specialist
available via [employer]
Please use your independent medical judgment in providing your response.
*Source: National Pressure Ulcer Advisory Panel (NPUAP)
--- NOTE | 2024-05-06 15:36 | PN.CDI ---
CDI
- -
CDI:
Physician Documentation Request
Admit Date: 05/05/24 21:14
Dear Doctor Gabbie,
Clinical Indicators:
Documentation in the record on 05/06 includes the diagnosis of sepsis.
Patient with JEWELL/metabolic acidosis on admission.
WBC on admit/trend:
05/05/24 05/06/24
16:52 04:35
WBC 20.3 H 14.3 H
Temp on admit/trend:
05/05/24
16:36 05/05/24
21:52 05/05/24
22:39
Temp 98.5 F 97.1 F 97 F
HR/RR on admit/trend:
05/05/24
16:36 05/05/24
21:52 05/05/24
22:00
Pulse 68 68 68
Resp Rate 18 20 22
05/05/24
23:50 05/06/24
01:07 05/06/24
03:10
Pulse 74 67 67
Resp Rate 17 16 17
Recognized standard criteria for this condition:
�Sepsis
-Systemic manifestations of infection, with 2 or more SIRS criteria which include:
-Fever > 100.4��F or hypothermia < 96.8��F
-Leukocytosis WBC > 12,000 or leukopenia, WBC < 4,000, or > 10% bands
-Tachycardia- > 90 beats/minute
-Tachypnea- RR > 20 breaths/minute or PaCO2 < 32mmHg
Source: Merck Manual 2013
Based on the above information and the recognized standard SIRS criteria, please clarify if sepsis is still an accurate diagnosis, and reflective of the patient�s condition, to ensure quality of the medical record.
Please clarify in the Progress Notes:
�Sepsis is/was present and is a clinical diagnosis based on .
(please include this additional support in the medical record)
�After study sepsis has been ruled out
�Other
Use of terms such as suspected, likely, concern for, or probable (associated with a specific diagnosis that is being evaluated, monitored, or treated as if it exists) are acceptable and can be coded in the inpatient setting, when documented at the
time of discharge.
Thank you,
Ayesha Roman RN BSN
CDI Specialist
available via tiger text
Please use your independent medical judgment in providing your response.
[2024-05-06 17:21] LABS: Glucose - Point of Care 163 mg/dl (70-99)
[2024-05-06] MEDS: NOVOLOG FLEXPEN-LOW RESISTANCE 1 UNITS SC (17:53)
[2024-05-06] MEDS: HEPARIN 5000 UNITS SC (21:04)
[2024-05-06] MEDS: STERILE WATER FOR INJECTION 10 ML IV (21:05)
[2024-05-06] MEDS: ROCEPHIN 1000 MG IV (21:05)
[2024-05-06] MEDS: TOPROL XL 25 MG PO (21:06)
[2024-05-06] MEDS: ZETIA 10 MG PO (21:06)
[2024-05-06 21:44] LABS: Glucose - Point of Care 138 mg/dl (70-99)
--- NOTE | 2024-05-06 22:01 | PTCARENOTE ---
R forearm IV found to be painful per patient when flushed, began leaking. IV immediately removed, patient tolerated well.
[2024-05-07] VITALS (7 sets, daily range): BP systolic 122–168; BP diastolic 54–74; BMI 35.5
[2024-05-07 05:24] LABS: Glucose - Point of Care 121 mg/dl (70-99)
[2024-05-07] MEDS: SENOKOT-S 1 TABLET PO (05:36)
[2024-05-07 07:13] LABS: % Basophils 0.2 % (0-2); % Eosinophils 0.1 % (0-6); % Immature Granulocytes 1.4 % (0-0.5); % Monocytes 5.1 % (1.7-9.3); % Neutrophils 80.2 % (42.2-75.2); Absolute Immature Granulocytes 0.2 10^3/uL (0-0.05); Absolute Lymphocytes 1.7 10^3/uL (1.2-3.4); Absolute Monocytes 0.7 10^3/uL (0.1-0.6); Absolute Neutrophils 10.6 10^3/uL (1.4-6.5); Hematocrit 35.1 % (37.0-47.0); Hemoglobin 11.3 g/dL (12.0-16.0); Mean Corp Hgb Conc. 32.2 g/dL (33.0-37.0); Mean Corpuscular Hgb 28.5 pg (27.0-31.0); Mean Corpuscular Volume 88.6 fL (81.0-99.0); Mean Platelet Volume 8.6 fL (7.4-10.4); Nucleated Red Blood Cells % 0 %; Platelet Count 316 10^3/uL (130-400); Red Blood Cell Count 3.96 10^6/uL (4.20-5.40); Red Cell Dist. Width 14.8 % (11.5-14.5); White Blood Cell Count 13.2 10^3/uL (4.8-10.8)
[2024-05-07 07:57] LABS: Blood Urea Nitrogen 58 mg/dl (7-17); Calcium 8.9 mg/dl (8.4-10.2); Carbon Dioxide 23 mmol/L (22-30); Chloride 100 mmol/L (98-107); Estimated Creatinine Clearance 18 ml/min; Glucose 110 mg/dl (70-99); Potassium 3.9 mmol/L (3.5-5.1); Sodium 134 mmol/L (135-145); eGFR 19.92
[2024-05-07 08:36] LABS: Glucose - Point of Care 98 mg/dl (70-99)
[2024-05-07] MEDS: NOVOLOG FLEXPEN-LOW RESISTANCE SC ×2 (08:57→17:39)
[2024-05-07] MEDS: HEPARIN 5000 UNITS SC ×2 (08:59→20:45)
--- NOTE | 2024-05-07 09:29 | W.PN.HOSP.TC ---
Today's Communication/Plan
-
see A/P
Assessment / Plan
Assessment / Plan
HPI: 73-year-old female past medical history of hypertension,�diabetes, nephrolithiasis, obesity, hernia surgery status post mesh status post removal, presented with left lower quadrant abdominal pain.�
Labs show leukocytosis 20.� Metabolic acidosis with bicarb of 13.� Creatinine of 3.7 from 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
xanthogranulomatous pyelonephritis.
Urinalysis shows greater than 100 WBC.
A/P:
# Sepsis POA 2/2 complicated UTI from obstructive L kidney stone
# Staghorn calculus involving the right kidney, to be addressed at later date
s/p emergent OR for stent placement
Urine culture likely contaminated, greater than 100,000 CFU/ML
blood cultures negative
Cont Ceftriaxone while in the hospital (14 days total is the standard treatment for complicated UTI) .�
Cont bhatia unless further directed by Uro
Hold EMAIL PRODUCER celecoxib,�losartan, Lasix for now
PT OT recc home vs SNF. Pt electing SNF
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
# Metabolic acidosis , resolved
# Mild hyperkalemia resolved
SCr 3.7 on admission -> 2.4; from 1.4 baseline
DC further IVF as pt c/o getting more 'swollen' (clinically without significant sign of overload)
# DM2
Accu-Cheks with SSI,
HgbA1c 6.0%
Patient held repaglinide since Thursday05/03/2024, cont to hold
Changed to carb control diet per pt request
# HTN-benign
Hold losartan 25 mg daily
cont EMAIL PRODUCER Toprol
IV hydralazine PRN
# HLD
Continue Zetia 10 mg at bedtime
# Gout
No reported meds
# Arthritis-unknown type
Hold Celebrex 200 mg Thursday
# Constipation
Senokot-S and Miralax PRN
DVT prophylaxis: added HSQ to SCD
Full code
Dispo: Pt electing SNF
Anticipated Discharge: 24 - 48 hours
Subjective/Interval History
-
Date of Service: May 07, 2024
Objective Data
-
Labs:
Laboratory Results
05/07/24
06:03
WBC 13.2 H
Hgb 11.3 L
Hct 35.1 L
Plt Count 316
Sodium 134 L
Potassium 3.9 D
Chloride 100
Carbon Dioxide 23
BUN 58 H
Creatinine 2.4 H
Glucose 110 H
Calcium 8.9
Vital Signs:
Vital Signs
Temp Pulse Resp BP Pulse Ox
36.6 C 63 18 122/74 95
05/07/24 07:00 05/07/24 08:35 05/07/24 07:00 05/07/24 08:35 05/07/24 07:00
I&O
05/06/24 05/07/24 05/08/24
06:59 06:59 06:59
Intake Total 200 / 200 4080 / 4080
Output Total 2099
Balance 200 / 200 1979
Review of Systems
-
All other systems: Reviewed and negative
Abdomen/GI: Reports Constipated
Physical Exam
-
General: Well Developed, Well Nourished, No Apparent Distress, Comfortable and Conversant; Negative Respiratory Distress
HEENT: Normocephalic, Atraumatic, Nose Appears Normal and Ears Appear Normal; Negative Oxygen
Respiratory: Clear to Auscultation and Non Labored Respirations; Negative Accessory Resp Muscle Use
Cardiac: Regular Rhythm and S1/S2
GI: Soft, Nontender, Nondistended and Normal Bowel Sounds
Genito-urinary: Bhatia
Skin: Warm and Dry
Neuro: Awake, Alert, Oriented and AO x 3
Psych: Calm and Intact Judgement/Insight
Data Reviewed
-
CT Scan: Report Reviewed by me
Labs: Labs Reviewed by me
[2024-05-07] MEDS: SODIUM BICARBONATE IV (11:51)
[2024-05-07 12:08] LABS: Glucose - Point of Care 183 mg/dl (70-99)
[2024-05-07] MEDS: NOVOLOG FLEXPEN-LOW RESISTANCE 1 UNITS SC (12:40)
--- NOTE | 2024-05-07 14:28 | CM ---
Reviewed the chart notes and received TT from attending that the patient was interested in SNF. CM spoke with the patient and she is interested in [facility]N services, not SNF. Patient has had [facility] in the past, referral sent via [facility]. CM
continues to be available to patient/family and is monitoring medical plan for needs at discharge.
Plan: Discharge to home with [facility] services.
[2024-05-07] MEDS: DULCOLAX 10 MG RECTAL (15:17)
[2024-05-07 17:33] LABS: Glucose - Point of Care 130 mg/dl (70-99)
[2024-05-07 21:17] LABS: Glucose - Point of Care 149 mg/dl (70-99)
[2024-05-07] MEDS: STERILE WATER FOR INJECTION 10 ML IV (21:54)
[2024-05-07] MEDS: ROCEPHIN 1000 MG IV (21:55)
[2024-05-07] MEDS: ZETIA 10 MG PO (21:57)
[2024-05-07] MEDS: TOPROL XL 25 MG PO (21:57)
[2024-05-08] VITALS (7 sets, daily range): BP systolic 138–177; BP diastolic 56–77; BMI 35.1
[2024-05-08 06:56] LABS: % Basophils 1.1 % (0-2); % Eosinophils 0.9 % (0-6); % Immature Granulocytes 2.3 % (0-0.5); % Lymphocytes 23.2 % (20.5-51.1); % Monocytes 8.5 % (1.7-9.3); Absolute Basophils 0.1 10^3/uL (0-0.2); Absolute Eosinophils 0.1 10^3/uL (0-0.7); Absolute Immature Granulocytes 0.2 10^3/uL (0-0.05); Absolute Lymphocytes 2.4 10^3/uL (1.2-3.4); Absolute Monocytes 0.9 10^3/uL (0.1-0.6); Absolute Neutrophils 6.6 10^3/uL (1.4-6.5); Hematocrit 34.4 % (37.0-47.0); Hemoglobin 11.4 g/dL (12.0-16.0); Mean Corp Hgb Conc. 33.1 g/dL (33.0-37.0); Mean Corpuscular Hgb 28.3 pg (27.0-31.0); Mean Corpuscular Volume 85.4 fL (81.0-99.0); Mean Platelet Volume 8.4 fL (7.4-10.4); Nucleated Red Blood Cells % 0 %; Platelet Count 314 10^3/uL (130-400); Red Blood Cell Count 4.03 10^6/uL (4.20-5.40); Red Cell Dist. Width 14.8 % (11.5-14.5); White Blood Cell Count 10.3 10^3/uL (4.8-10.8)
[2024-05-08 07:13] LABS: Blood Urea Nitrogen 55 mg/dl (7-17); Calcium 9.2 mg/dl (8.4-10.2); Carbon Dioxide 26 mmol/L (22-30); Chloride 103 mmol/L (98-107); Estimated Creatinine Clearance 22 ml/min; Glucose 105 mg/dl (70-99); Potassium 4.1 mmol/L (3.5-5.1); Sodium 137 mmol/L (135-145); eGFR 26.36
[2024-05-08 08:04] LABS: Glucose - Point of Care 96 mg/dl (70-99)
[2024-05-08] MEDS: NOVOLOG FLEXPEN-LOW RESISTANCE SC ×3 (08:08→16:50)
--- NOTE | 2024-05-08 08:09 | W.PN.URO.CBU ---
Today's Communication / Plan
-
discharge when medically stable
Assessment / Plan
-
UTI
right staghorn stone/xgp
left ureteral stone/ s/p stent
pt improved
plan to continue outpt antibx course for total 14 days
f/u with dr mckenna to review options/plan
discussed critical nature of prompt f/u with patient
Diagnosis
-
Date of Service: May 08, 2024
-
Patient Diagnosis:
1. Left Ureteral Calculus, ~ 6mm, middle Obstructing s/p emergent left ureteral stenting 05/05/2024
2. Acute on chronic renal insufficiency
3. Right Staghorn renal calculus/XGP
4. Left Renal calculi
5. Chronic polymicrobial UTI including Proteus with possible evolving urosepsis
Post Op Day: 4
Subjective
-
pt feels better
bhatia out
no fevers/wbc normalized
ucx mixed organisms
Objective
-
Vital Signs
Temp Pulse Resp BP Pulse Ox
98.1 F 61 16 138/56 90
05/08/24 03:00 05/08/24 03:00 05/08/24 03:00 05/08/24 03:00 05/08/24 03:00
Intake and Output
05/07/24 05/08/24 05/09/24
06:59 06:59 06:59
Intake Total 4080 / 4080 740 / 740
Output Total 2099 1275 / 1275
Balance 1979 / 1979 -535 / -535
Intake:
Oral fluids 1680 / 1680 740 / 740
IV fluids (Total) 2400 / 2400
Output:
Urine, Bhatia 2099 1000 / 1000
Urine, Voided 275 / 275
Other:
Number of approximated MODERATE 1
amounts of urine
How many times incontinent 2
MODERATE amount urine
How many times incontinent 1
SATURATED amount urine
Laboratory Results
05/08/24 05:59
05/08/24 05:59
Review of Systems
-
Constitutional: Fatigue
Respiratory: No Symptoms
Cardiac: No Symptoms
Abdomen/GI: No Symptoms
Physical Exam
-
General - no acute distress
[2024-05-08] MEDS: HEPARIN 5000 UNITS SC ×2 (08:35→20:33)
[2024-05-08] MEDS: APRESOLINE 5 MG IV ×3 (09:38→22:36)
--- NOTE | 2024-05-08 11:42 | W.PN.HOSP.TC ---
Today's Communication/Plan
-
see A/P
Assessment / Plan
Assessment / Plan
HPI: 73-year-old female past medical history of hypertension,�diabetes, nephrolithiasis, obesity, hernia surgery status post mesh status post removal, presented with left lower quadrant abdominal pain.�
Labs show leukocytosis 20.� Metabolic acidosis with bicarb of 13.� Creatinine of 3.7 from 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
xanthogranulomatous pyelonephritis.
Urinalysis shows greater than 100 WBC.
A/P:
# Sepsis POA 2/2 complicated UTI from obstructive L kidney stone
# Staghorn calculus involving the right kidney, to be addressed at later date
s/p emergent OR for L ureteral stent placement
Urine culture likely contaminated, greater than 100,000 CFU/ML; blood cultures negative
Cont Ceftriaxone while in the hospital with plan to change to PO upon discharge (would treat for 14 days total for complicated UTI) .�
Off bhatia 05/07 for voiding trial, pt incontinent of urine
PT OT recc home vs SNF. Pt prefers
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
# Metabolic acidosis , resolved
# Mild hyperkalemia resolved
SCr 3.7 on admission -> 1.9 today; from 1.4 baseline
Off further IVF as pt c/o getting more 'swollen' (clinically without significant sign of overload)
Hold BUDGET CONSULTANT celecoxib,�losartan, Lasix for now
# DM2
Accu-Cheks with SSI,
HgbA1c 6.0%
Patient held repaglinide since Thursday05/03/2024, cont to hold
Carb control diet
# HTN-benign
Hold losartan 25 mg daily
cont BUDGET CONSULTANT Toprol
IV hydralazine PRN
# HLD
Continue Zetia 10 mg at bedtime
# Gout
No reported meds
# Arthritis-unknown type
Hold Celebrex 200 mg Thursday
# Constipation
Senokot-S and Miralax PRN
DVT prophylaxis: added HSQ to SCD
Full code
Dispo: HH vs SNF per PT. Pt prefers HH
DW RN
Anticipated Discharge: Within 24 hours
Subjective/Interval History
-
Date of Service: May 08, 2024
Objective Data
-
Labs:
Laboratory Results
05/08/24
05:59
WBC 10.3
Hgb 11.4 L
Hct 34.4 L
Plt Count 314
Sodium 137
Potassium 4.1
Chloride 103
Carbon Dioxide 26
BUN 55 H
Creatinine 1.9 H
Glucose 105 H
Calcium 9.2
Vital Signs:
Vital Signs
Temp Pulse Resp BP Pulse Ox
37.0 C 60 16 152/75 92
05/08/24 08:28 05/08/24 08:28 05/08/24 08:28 05/08/24 09:38 05/08/24 08:28
I&O
05/07/24 05/08/24 05/09/24
06:59 06:59 06:59
Intake Total 4080 / 4080 740 / 740
Output Total 2099 / 2099 1275 / 1275
Balance 1979 / 1979 -535 / -535
Review of Systems
-
All other systems: Reviewed and negative
Abdomen/GI: Denies Constipated
Physical Exam
-
General: Well Developed, Well Nourished, No Apparent Distress, Comfortable and Conversant; Negative Respiratory Distress
HEENT: Normocephalic, Atraumatic, Nose Appears Normal and Ears Appear Normal; Negative Oxygen
Respiratory: Clear to Auscultation and Non Labored Respirations; Negative Accessory Resp Muscle Use
Cardiac: Regular Rhythm and S1/S2
GI: Soft, Nontender, Nondistended and Normal Bowel Sounds
Genito-urinary: Negative Bhatia
Skin: Warm and Dry
Neuro: Awake, Alert, Oriented and AO x 3
Psych: Calm and Intact Judgement/Insight
Data Reviewed
-
CT Scan: Report Reviewed by me
Labs: Labs Reviewed by me
[2024-05-08 11:59] LABS: Glucose - Point of Care 114 mg/dl (70-99)
--- NOTE | 2024-05-08 16:11 | CM ---
IMM signed and placed on chart.
[2024-05-08 16:47] LABS: Glucose - Point of Care 111 mg/dl (70-99)
[2024-05-08] MEDS: TOPROL XL 25 MG PO (22:21)
[2024-05-08] MEDS: ZETIA 10 MG PO (22:21)
[2024-05-08] MEDS: STERILE WATER FOR INJECTION 10 ML IV (22:22)
[2024-05-08] MEDS: ROCEPHIN 1000 MG IV (22:22)
[2024-05-08 22:45] LABS: Glucose - Point of Care 114 mg/dl (70-99)
[2024-05-09 05:42] LABS: % Basophils 0.8 % (0-2); % Eosinophils 1.4 % (0-6); % Immature Granulocytes 4.1 % (0-0.5); % Lymphocytes 23.2 % (20.5-51.1); % Monocytes 7.7 % (1.7-9.3); % Neutrophils 62.8 % (42.2-75.2); Absolute Basophils 0.1 10^3/uL (0-0.2); Absolute Eosinophils 0.2 10^3/uL (0-0.7); Absolute Immature Granulocytes 0.4 10^3/uL (0-0.05); Absolute Lymphocytes 2.5 10^3/uL (1.2-3.4); Absolute Monocytes 0.8 10^3/uL (0.1-0.6); Absolute Neutrophils 6.7 10^3/uL (1.4-6.5); Hematocrit 34.4 % (37.0-47.0); Mean Corpuscular Hgb 28.3 pg (27.0-31.0); Mean Corpuscular Volume 88.4 fL (81.0-99.0); Mean Platelet Volume 8.8 fL (7.4-10.4); Nucleated Red Blood Cells % 0 %; Platelet Count 306 10^3/uL (130-400); Red Blood Cell Count 3.89 10^6/uL (4.20-5.40); Red Cell Dist. Width 15.1 % (11.5-14.5); White Blood Cell Count 10.7 10^3/uL (4.8-10.8)
[2024-05-09 05:55] VITALS: BMI 34.9
[2024-05-09 06:21] LABS: Blood Urea Nitrogen 47 mg/dl (7-17); Calcium 9.6 mg/dl (8.4-10.2); Carbon Dioxide 20 mmol/L (22-30); Chloride 106 mmol/L (98-107); Estimated Creatinine Clearance 26 ml/min; Glucose 103 mg/dl (70-99); Potassium 4.1 mmol/L (3.5-5.1); Sodium 136 mmol/L (135-145)
[2024-05-09 07:10] VITALS: BP 150/77
[2024-05-09 07:17] LABS: Glucose - Point of Care 115 mg/dl (70-99)
[2024-05-09] MEDS: NOVOLOG FLEXPEN-LOW RESISTANCE SC ×3 (08:47→17:51)
[2024-05-09] MEDS: HEPARIN 5000 UNITS SC ×2 (09:54→21:39)
--- NOTE | 2024-05-09 10:15 | CM ---
Addendum entered by Hayley Casey 05/09/24 14:57:
Met with pt
Prob d/c tomorrow
Reports will have ride home
Aware [facility] to follow
Given IMM
Plan - anticipate home with [facility] when medically stable
Fax - [phone]
Original Note:
Chart reviewed
Referral sent in [facility] to [facility] for HH needs. Spoke with Marychuy at [facility] - will review. Pt known to [facility]. Will accept
[facility] Fax - [phone]
--- NOTE | 2024-05-09 12:04 | W.PN.HOSP.TC ---
Today's Communication/Plan
-
add nifedipine
monitor scr
Assessment / Plan
Assessment / Plan
HPI: 73-year-old female past medical history of hypertension,�diabetes, nephrolithiasis, obesity, hernia surgery status post mesh status post removal, presented with left lower quadrant abdominal pain.�
Labs show leukocytosis 20.� Metabolic acidosis with bicarb of 13.� Creatinine of 3.7 from 1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
xanthogranulomatous pyelonephritis.
Urinalysis shows greater than 100 WBC.
A/P:
# Sepsis POA 2/2 complicated UTI from obstructive L kidney stone
# Staghorn calculus involving the right kidney, to be addressed at later date
s/p emergent OR for L ureteral stent placement
Urine culture likely contaminated, greater than 100,000 CFU/ML; blood cultures negative
Cont Ceftriaxone while in the hospital with plan to change to PO upon discharge (would treat for 14 days total for complicated UTI) .�
Off bhatia 05/07 for voiding trial, pt incontinent of urine
PT OT recc home vs SNF. Pt prefers
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
# Metabolic acidosis , resolved
# Mild hyperkalemia resolved
SCr 3.7 on admission -> improving
Off further IVF as pt c/o getting more 'swollen' (clinically without significant sign of overload)
Hold MANAGER SEARCH celecoxib,�losartan, Lasix for now
# DM2
Accu-Cheks with SSI,
HgbA1c 6.0%
Patient held repaglinide since Thursday05/03/2024, cont to hold
Carb control diet
# HTN-benign
Hold losartan 25 mg daily
cont MANAGER SEARCH Toprol
add nifedipine
# HLD
Continue Zetia 10 mg at bedtime
# Gout
No reported meds
# Arthritis-unknown type
Hold Celebrex 200 mg Thursday
# Constipation
Senokot-S and Miralax PRN
DVT prophylaxis: added HSQ to SCD
Full code
Dispo: HH vs SNF per PT. Pt prefers HH ; does not feel comfortable going today - has headache and worried about her blood pressure; will add nifedepine and monitor
DW RN
Anticipated Discharge: Within 24 hours
Subjective/Interval History
-
Date of Service: May 09, 2024
headache, feels worse today; worried about her blood pressures
Objective Data
-
Labs:
Laboratory Results
05/09/24
04:23
WBC 10.7
Hgb 11.0 L
Hct 34.4 L
Plt Count 306
Sodium 136
Potassium 4.1
Chloride 106
Carbon Dioxide 20 L
BUN 47 H
Creatinine 1.6 H
Glucose 103 H
Calcium 9.6
Vital Signs:
Vital Signs
Temp Pulse Resp BP Pulse Ox
97.9 F 67 16 150/77 94
05/09/24 07:10 05/09/24 07:10 05/09/24 07:10 05/09/24 07:10 05/09/24 07:10
I&O
05/08/24 05/09/24 05/10/24
06:59 06:59 06:59
Intake Total 740 / 740 1440 / 1440
Output Total 1275 / 1275
Balance -535 / -535 1440 / 1440
Review of Systems
-
History Source: Patient
All other systems: Not reviewed unless documented
Physical Exam
-
General: Well Developed, Well Nourished, No Apparent Distress, Comfortable and Conversant; Negative Respiratory Distress
HEENT: Normocephalic, Atraumatic, Nose Appears Normal and Ears Appear Normal; Negative Oxygen
Respiratory: Clear to Auscultation and Non Labored Respirations; Negative Accessory Resp Muscle Use
Cardiac: Regular Rhythm and S1/S2
GI: Soft, Nontender, Nondistended and Normal Bowel Sounds
Genito-urinary: Negative Bhatia
Skin: Warm and Dry
Neuro: Awake, Alert, Oriented and AO x 3
Psych: Calm and Intact Judgement/Insight
Data Reviewed
-
Diagnostic Radiology: Report Reviewed by me
CT Scan: Report Reviewed by me
Labs: Labs Reviewed by me
[2024-05-09 12:13] LABS: Glucose - Point of Care 109 mg/dl (70-99)
[2024-05-09] MEDS: PROCARDIA XL (EXTENDED RELEASE) 30 MG PO (14:09)
[2024-05-09 14:10] VITALS: BP 189/74
--- NOTE | 2024-05-09 14:17 | PTCARENOTE ---
Patient refusing PRN hydralazine because she believes it is causing her to have headaches. Procardia started and given per order, see mar/flowsheets for further care details.
[2024-05-09 15:35] VITALS: BP 160/63
[2024-05-09 17:37] LABS: Glucose - Point of Care 185 mg/dl (70-99)
[2024-05-09] MEDS: ROCEPHIN 1000 MG IV (21:40)
[2024-05-09] MEDS: STERILE WATER FOR INJECTION 10 ML IV (21:41)
[2024-05-09] MEDS: TOPROL XL 25 MG PO (21:41)
[2024-05-09] MEDS: ZETIA 10 MG PO (21:41)
[2024-05-09 21:46] LABS: Glucose - Point of Care 201 mg/dl (70-99)
[2024-05-09 22:35] VITALS: BP 121/56
[2024-05-10 06:19] VITALS: BMI 33.9
[2024-05-10 07:00] LABS: Hematocrit 34.6 % (37.0-47.0); Hemoglobin 10.8 g/dL (12.0-16.0); Mean Corp Hgb Conc. 31.2 g/dL (33.0-37.0); Mean Corpuscular Hgb 28.1 pg (27.0-31.0); Mean Corpuscular Volume 90.1 fL (81.0-99.0); Mean Platelet Volume 9.1 fL (7.4-10.4); Platelet Count 315 10^3/uL (130-400); Red Blood Cell Count 3.84 10^6/uL (4.20-5.40); Red Cell Dist. Width 15.1 % (11.5-14.5); White Blood Cell Count 11.9 10^3/uL (4.8-10.8)
[2024-05-10 07:15] VITALS: BP 156/61
[2024-05-10 07:22] LABS: Glucose - Point of Care 113 mg/dl (70-99)
[2024-05-10 07:27] LABS: Blood Urea Nitrogen 36 mg/dl (7-17); Calcium 9.8 mg/dl (8.4-10.2); Carbon Dioxide 23 mmol/L (22-30); Chloride 102 mmol/L (98-107); Estimated Creatinine Clearance 28 ml/min; Glucose 115 mg/dl (70-99); Sodium 136 mmol/L (135-145); eGFR 35.01
[2024-05-10] MEDS: NOVOLOG FLEXPEN-LOW RESISTANCE SC ×2 (08:14→17:44)
[2024-05-10] MEDS: PROCARDIA XL (EXTENDED RELEASE) 30 MG PO (08:16)
[2024-05-10] MEDS: HEPARIN 5000 UNITS SC ×2 (08:16→22:04)
[2024-05-10 10:35] VITALS: BP 141/67; PULSE 74; O2SAT 92
--- NOTE | 2024-05-10 11:16 | W.PN.HOSP.TC ---
Addendum entered and electronically signed by Gopal Carballo MD 05/10/24 12:40:
mild hypoxia - came back to 94% - more than likely related to atelectasis, deconditioning - - given incentive spirometer -will re-eval prior to dc
Original Note:
Today's Communication/Plan
-
cefdinir to complete 14 day course total
f/u cards, urology, pcp, nephrology outpt
resume lasix, hold celecoxib and losartan
f/u bmp in 3-5 days
cont toprol
Assessment / Plan
Assessment / Plan
HPI: 73-year-old female past medical history of hypertension,�diabetes, nephrolithiasis, obesity, hernia surgery status post mesh status post removal, presented with left lower quadrant abdominal pain.�
Labs show leukocytosis 20.� Metabolic acidosis with bicarb of 13.� Creatinine of 3.7 from 1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
xanthogranulomatous pyelonephritis.
Urinalysis shows greater than 100 WBC.
A/P:
# Sepsis POA 2/2 complicated UTI from obstructive L kidney stone
# Staghorn calculus involving the right kidney, to be addressed at later date as per urology
s/p emergent OR for L ureteral stent placement
Urine culture likely contaminated, greater than 100,000 CFU/ML; blood cultures negative
Cont Ceftriaxone while in the hospital with plan to change to PO upon discharge (would treat for 14 days total for complicated UTI) .�DC on cefdinir
Off bhatia 05/07 for voiding trial, pt incontinent of urine
PT OT recc home vs SNF. Pt prefers HH
F/u CBC outpt
-f/u urology outpt
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
# Metabolic acidosis , resolved
# Mild hyperkalemia resolved
SCr 3.7 on admission -> improving
Off further IVF as pt c/o getting more 'swollen' (clinically without significant sign of overload)
Hold CLINICAL EDUCATION ACADEMIC COORDINATOR celecoxib for now
Hold�losartan, can resume Lasix for now
-bmp in 3-5 days with pcp
# DM2
Accu-Cheks with SSI,
HgbA1c 6.0%
Patient held repaglinide since Thursday05/03/2024, cont to hold
Carb control diet
# HTN-benign
Hold losartan 25 mg daily
cont CLINICAL EDUCATION ACADEMIC COORDINATOR Toprol
resume lasix
# HLD
Continue Zetia 10 mg at bedtime
# Gout
No reported meds
# Arthritis-unknown type
Hold Celebrex 200 mg Thursday
# Constipation
Senokot-S and Miralax PRN
#Coronary artery calcifications are present.
-f/u cardiology outpt
DVT prophylaxis: added HSQ to SCD
Full code
Dispo: HH vs SNF per PT. Pt prefers HH ;
DW RN
More than 30 minutes spent in discharge including
Final examination of the patient
Summarizing hospital stay
Instructions for continuing care to all relevant caregivers
Preparation of discharge records, prescriptions, and referral forms
Total time spent (36 in minutes):
Anticipated Discharge: Today
Subjective/Interval History
-
Date of Service: May 10, 2024
no acute events
Objective Data
-
Labs:
Laboratory Results
05/10/24
05:20
WBC 11.9 H
Hgb 10.8 L
Hct 34.6 L
Plt Count 315
Sodium 136
Potassium 4.0
Chloride 102
Carbon Dioxide 23
BUN 36 H
Creatinine 1.5 H
Glucose 115 H
Calcium 9.8
Vital Signs:
Vital Signs
Temp Pulse Resp BP Pulse Ox
98.2 F 63 18 156/61 93
05/10/24 07:15 05/10/24 07:15 05/10/24 07:15 05/10/24 07:15 05/10/24 08:00
I&O
05/09/24 05/10/24 05/11/24
06:59 06:59 06:59
Intake Total 1440 / 1440 720 / 720 1080 / 1080
Balance 1440 / 1440 720 / 720 1080 / 1080
Review of Systems
-
History Source: Patient
All other systems: Not reviewed unless documented
Physical Exam
-
General: Well Developed, Well Nourished, No Apparent Distress, Comfortable and Conversant; Negative Respiratory Distress
HEENT: Normocephalic, Atraumatic, Nose Appears Normal and Ears Appear Normal; Negative Oxygen
Respiratory: Clear to Auscultation and Non Labored Respirations; Negative Accessory Resp Muscle Use
Cardiac: Regular Rhythm and S1/S2
GI: Soft, Nontender, Nondistended and Normal Bowel Sounds
Genito-urinary: Negative Bhatia
Skin: Warm and Dry
Neuro: Awake, Alert, Oriented and AO x 3
Psych: Calm and Intact Judgement/Insight
--- NOTE | 2024-05-10 11:20 | W.DS.TRANS ---
DC Summary - Arts Therapist
-
Discharge Instructions:
Discharge Diagnosis/Procedures # Sepsis POA 2/2 complicated UTI from
obstructive L kidney stone
# Staghorn calculus involving the right kidney,
to be addressed at later date
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
Diet Diabetic, Carb Controlled,Low Cholesterol,Low
Fat
Activity As tolerated
Driving Restrictions Not until seen by your Dr
Blood Work cbc and bmp with pcp in 3-5 days
Others Tests Staghorn calculus involving the right kidney
with significant progression since examination
March 07, 2019. Increased fat density within
the central renal hilum and there is stranding
surrounding the left renal pelvis and proximal
ureter. 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
xanthogranulomatous pyelonephritis. - please f/u
with Urology
Coronary artery calcifications are present.
Please correlate with symptoms of and risk
factors for coronary artery disease, with
further workup as clinically appropriate. - F/u
cardiology
Instructions:
Stand-Alone Forms:
Changes to Home Medications: Yes
Discharge Medications:
DC Medications w/original date entered in [employer]
celecoxib 200 mg capsule 200 mg PO MOFR@0900,2100 05/10/19
repaglinide 0.5 mg tablet 0.5 mg PO BID@1100,1800 05/10/19
dicyclomine 20 mg tablet 10 mg PO Q6HPRN PRN stomach pain 05/05/24
ezetimibe 10 mg tablet 10 mg PO HS 05/05/24
furosemide 20 mg tablet 10 mg PO HS 05/05/24
losartan 50 mg tablet 25 mg PO DAILY 05/05/24
metoprolol succinate 25 mg tablet,extended release 24 hr 25 mg PO HS 05/05/24
cefdinir 300 mg capsule 300 mg PO Q12H 9 days #18 caps 05/10/24
Home Medication Changes
cefdinir 300 mg capsule 300 mg PO Q12H 9 days #18 caps 05/10/24
Holding losartan, celecoxib
Pending Results: No
--- NOTE | 2024-05-10 11:32 | CM ---
Chart reviewed. Met with pt
Pt for poss discharge today
Daniela HODGES to follow at d/c
Has ride home
Plan - anticipate home with Daniela FINLEY when medically stable
Fax - [phone]
[2024-05-10 11:48] LABS: Glucose - Point of Care 164 mg/dl (70-99)
[2024-05-10 12:07] LABS: NT-proBNP 3350 pg/ml
[2024-05-10] MEDS: NOVOLOG FLEXPEN-LOW RESISTANCE 1 UNITS SC (12:45)
[2024-05-10] MEDS: LASIX 10 MG PO (13:26)
[2024-05-10 14:02] VITALS: BP 139/57; PULSE 73; O2SAT 97
--- NOTE | 2024-05-10 17:17 | CARDSERVLU ---
Echocardiogram with Lumason completed after protocol screening completed. Allergies verified.
Patent IV site: ___Lhand__
IV site flushed with 0.9% NaCl pre and post administration.
Diluted bolus method utilized to enhance visualization of ventricular jules.
Total volume given: __5__ mL
Patient tolerated all procedures well without complications.
[2024-05-10 17:39] LABS: Glucose - Point of Care 134 mg/dl (70-99)
[2024-05-10 21:25] LABS: Glucose - Point of Care 164 mg/dl (70-99)
[2024-05-10] MEDS: TOPROL XL 25 MG PO (22:05)
[2024-05-10] MEDS: ZETIA 10 MG PO (22:05)
[2024-05-10] MEDS: STERILE WATER FOR INJECTION 10 ML IV (22:06)
[2024-05-10] MEDS: ROCEPHIN 1000 MG IV (22:06)
[2024-05-10 23:18] VITALS: BP 150/87
[2024-05-11 05:37] VITALS: BMI 34.9
[2024-05-11 07:30] VITALS: BP 157/66
[2024-05-11 07:46] LABS: Glucose - Point of Care 114 mg/dl (70-99)
[2024-05-11] MEDS: NOVOLOG FLEXPEN-LOW RESISTANCE SC ×3 (08:42→18:15)
[2024-05-11] MEDS: COZAAR 25 MG PO (09:40)
[2024-05-11] MEDS: HEPARIN 5000 UNITS SC ×2 (09:41→20:35)
[2024-05-11 10:46] LABS: Blood Urea Nitrogen 28 mg/dl (7-17); Calcium 10.2 mg/dl (8.4-10.2); Carbon Dioxide 26 mmol/L (22-30); Chloride 104 mmol/L (98-107); Estimated Creatinine Clearance 28 ml/min; Glucose 114 mg/dl (70-99); Potassium 3.8 mmol/L (3.5-5.1); Sodium 137 mmol/L (135-145); eGFR 35.01
[2024-05-11 11:52] LABS: Glucose - Point of Care 148 mg/dl (70-99)
--- NOTE | 2024-05-11 13:32 | W.PN.HOSP.TC ---
Today's Communication/Plan
-
iv lasix
ct chest
le dopplers
Assessment / Plan
Assessment / Plan
HPI: 73-year-old female past medical history of hypertension,�diabetes, nephrolithiasis, obesity, hernia surgery status post mesh status post removal, presented with left lower quadrant abdominal pain.�
Labs show leukocytosis 20.� Metabolic acidosis with bicarb of 13.� Creatinine of 3.7 from 1.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
xanthogranulomatous pyelonephritis.
Urinalysis shows greater than 100 WBC.
A/P:
# Sepsis POA 2/2 complicated UTI from obstructive L kidney stone
# Staghorn calculus involving the right kidney, to be addressed at later date as per urology
s/p emergent OR for L ureteral stent placement
Urine culture likely contaminated, greater than 100,000 CFU/ML; blood cultures negative
Cont Ceftriaxone while in the hospital with plan to change to PO upon discharge (would treat for 14 days total for complicated UTI) .�DC on cefdinir
Off bhatia 05/07 for voiding trial, pt incontinent of urine
PT OT recc home vs SNF. Pt prefers HH
F/u CBC outpt
-f/u urology outpt
#Hypoxia
-ct chest
-le dopplers
-possible acute HFpEF
-iv diuresis 20mg iv lasix now
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
# Metabolic acidosis , resolved
# Mild hyperkalemia resolved
SCr 3.7 on admission -> improving
Off further IVF as pt c/o getting more 'swollen' (clinically without significant sign of overload)
Hold INSULATOR TECHNICIAN celecoxib for now
Hold�losartan, can resume Lasix for now and monitor
-bmp in 3-5 days with pcp
# DM2
Accu-Cheks with SSI,
HgbA1c 6.0%
Patient held repaglinide since Thursday05/03/2024, cont to hold
Carb control diet
# HTN-benign
Hold losartan 25 mg daily
cont INSULATOR TECHNICIAN Toprol
resume lasix iv
# HLD
Continue Zetia 10 mg at bedtime
# Gout
No reported meds
# Arthritis-unknown type
Hold Celebrex 200 mg Thursday
# Constipation
Senokot-S and Miralax PRN
#Coronary artery calcifications are present.
-f/u cardiology outpt
DVT prophylaxis: added HSQ to SCD
Full code
Dispo: HH vs SNF per PT. Pt prefers HH ;
DW RN
Anticipated Discharge: 24 - 48 hours
Subjective/Interval History
-
Date of Service: May 11, 2024
Hypoxia to 85% upon ambulation
Objective Data
-
Labs:
Laboratory Results
05/11/24
09:49
Sodium 137
Potassium 3.8
Chloride 104
Carbon Dioxide 26
BUN 28 H
Creatinine 1.5 H
Glucose 114 H
Calcium 10.2
Vital Signs:
Vital Signs
Temp Pulse Resp BP Pulse Ox
97.9 F 68 16 169/72 94
05/11/24 07:30 05/11/24 09:40 05/11/24 07:30 05/11/24 09:40 05/11/24 07:30
I&O
05/10/24 05/11/24 05/12/24
06:59 06:59 06:59
Intake Total 720 / 720 2079
Balance 720 / 720 2079
Review of Systems
-
History Source: Patient
All other systems: Not reviewed unless documented
Physical Exam
-
General: Well Developed, Well Nourished, No Apparent Distress, Comfortable and Conversant; Negative Respiratory Distress
HEENT: Normocephalic, Atraumatic, Nose Appears Normal and Ears Appear Normal; Negative Oxygen
Respiratory: Clear to Auscultation and Non Labored Respirations; Negative Accessory Resp Muscle Use
Cardiac: Regular Rhythm and S1/S2
GI: Soft, Nontender, Nondistended and Normal Bowel Sounds
Genito-urinary: Negative Bhatia
Skin: Warm and Dry
Neuro: Awake, Alert, Oriented and AO x 3
Psych: Calm and Intact Judgement/Insight
Data Reviewed
-
Diagnostic Radiology: Report Reviewed by me
CT Scan: Report Reviewed by me
Labs: Labs Reviewed by me
[2024-05-11 15:15] VITALS: BP 141/63
--- NOTE | 2024-05-11 15:21 | CM ---
Chart reviewed. Pt off unit
Requiring O2 - plan to diuresis
For chest CT today and LE doppler studies
Daniela to follow at d/c - Marychuy aware
Plan - watch for O2 needs at d/c; Daniela to follow
[2024-05-11] MEDS: LASIX 20 MG IV (15:40)
[2024-05-11] MEDS: FLUSH (NSS) 2 FLUSH IV (15:41)
[2024-05-11 22:08] LABS: Glucose - Point of Care 116 mg/dl (70-99)
[2024-05-11] MEDS: ROCEPHIN 1000 MG IV (22:44)
[2024-05-11] MEDS: STERILE WATER FOR INJECTION 10 ML IV (22:44)
[2024-05-11] MEDS: TOPROL XL 25 MG PO (22:44)
[2024-05-11] MEDS: ZETIA 10 MG PO (22:44)
[2024-05-11 23:05] VITALS: BP 163/67
[2024-05-12] VITALS: BP 145/63
[2024-05-12 06:35] LABS: Hematocrit 37.7 % (37.0-47.0); Hemoglobin 11.5 g/dL (12.0-16.0); Mean Corp Hgb Conc. 30.5 g/dL (33.0-37.0); Mean Corpuscular Hgb 28.4 pg (27.0-31.0); Mean Corpuscular Volume 93.1 fL (81.0-99.0); Mean Platelet Volume 8.9 fL (7.4-10.4); Platelet Count 333 10^3/uL (130-400); Red Blood Cell Count 4.05 10^6/uL (4.20-5.40); Red Cell Dist. Width 15.2 % (11.5-14.5)
[2024-05-12 07:01] LABS: Blood Urea Nitrogen 32 mg/dl (7-17); Calcium 9.9 mg/dl (8.4-10.2); Carbon Dioxide 25 mmol/L (22-30); Chloride 101 mmol/L (98-107); Estimated Creatinine Clearance 26 ml/min; Glucose 120 mg/dl (70-99); Potassium 4.2 mmol/L (3.5-5.1); Sodium 135 mmol/L (135-145)
[2024-05-12 07:39] LABS: Glucose - Point of Care 115 mg/dl (70-99)
[2024-05-12 07:42] VITALS: BP 125/65
[2024-05-12] MEDS: NOVOLOG FLEXPEN-LOW RESISTANCE SC ×3 (09:16→17:53)
[2024-05-12] MEDS: COZAAR 25 MG PO (09:32)
[2024-05-12] MEDS: HEPARIN 5000 UNITS SC ×2 (09:32→19:51)
[2024-05-12] MEDS: LASIX IV (09:39)
[2024-05-12 12:11] VITALS: O2SAT 92
[2024-05-12 12:27] LABS: Glucose - Point of Care 111 mg/dl (70-99)
--- NOTE | 2024-05-12 14:06 | W.PN.HOSP.TC ---
Today's Communication/Plan
-
ambulation
may need to go on home o2
Assessment / Plan
Assessment / Plan
HPI: 73-year-old female past medical history of hypertension,�diabetes, nephrolithiasis, obesity, hernia surgery status post mesh status post removal, presented with left lower quadrant abdominal pain.�
Labs show leukocytosis 20.� Metabolic acidosis with bicarb of 13.� Creatinine of 3.7 from 1.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
xanthogranulomatous pyelonephritis.
Urinalysis shows greater than 100 WBC.
A/P:
# Sepsis POA 2/2 complicated UTI from obstructive L kidney stone
# Staghorn calculus involving the right kidney, to be addressed at later date as per urology
s/p emergent OR for L ureteral stent placement
Urine culture likely contaminated, greater than 100,000 CFU/ML; blood cultures negative
Cont Ceftriaxone while in the hospital with plan to change to PO upon discharge (would treat for 14 days total for complicated UTI) .�DC on cefdinir
Off bhatia 05/07 for voiding trial, pt incontinent of urine
PT OT recc home vs SNF. Pt prefers HH
F/u CBC outpt
-f/u urology outpt
#Hypoxia
-i suspect 2/2 to deconditioning, low lung volumes
-le dopplers
-possible acute HFpEF
-s/p lasix
-Ambulate
-Incentive leeann
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
# Metabolic acidosis , resolved
# Mild hyperkalemia resolved
SCr 3.7 on admission -> improving
Off further IVF as pt c/o getting more 'swollen' (clinically without significant sign of overload)
Hold LATHE WINDER celecoxib for now
Hold�losartan, can resume Lasix for now and monitor
-bmp in 3-5 days with pcp
#5 mm and 4 mm focal opacities against the pleura in the paramediastinal right lower lobe as above
-f/u outpt
# DM2
Accu-Cheks with SSI,
HgbA1c 6.0%
Patient held repaglinide since Thursday05/03/2024, cont to hold
Carb control diet
# HTN-benign
Hold losartan 25 mg daily
cont LATHE WINDER Toprol
iv lasix - stop and monitor
# HLD
Continue Zetia 10 mg at bedtime
# Gout
No reported meds
# Arthritis-unknown type
Hold Celebrex 200 mg Thursday
# Constipation
Senokot-S and Miralax PRN
#Coronary artery calcifications are present.
-f/u cardiology outpt
DVT prophylaxis: added HSQ to SCD
Full code
Dispo: HH vs SNF per PT. Pt prefers HH ;
DW RN
Anticipated Discharge: Within 24 hours
Subjective/Interval History
-
Date of Service: May 12, 2024
no acute events overnight, still hypoxic to 86% on RA
Objective Data
-
Labs:
Laboratory Results
05/12/24
05:06
WBC 14.0 H
Hgb 11.5 L
Hct 37.7
Plt Count 333
Sodium 135
Potassium 4.2
Chloride 101
Carbon Dioxide 25
BUN 32 H
Creatinine 1.6 H
Glucose 120 H
Calcium 9.9
Vital Signs:
Vital Signs
Temp Pulse Resp BP Pulse Ox
97.3 F 77 16 125/65 93
05/12/24 07:42 05/12/24 07:42 05/12/24 07:42 05/12/24 07:42 05/12/24 09:13
I&O
05/11/24 05/12/24 05/13/24
06:59 06:59 06:59
Intake Total 2079 96 / 96
Balance 2079
Review of Systems
-
History Source: Patient
All other systems: Not reviewed unless documented
Physical Exam
-
General: Well Developed, Well Nourished, No Apparent Distress, Comfortable and Conversant; Negative Respiratory Distress
HEENT: Normocephalic, Atraumatic, Nose Appears Normal and Ears Appear Normal; Negative Oxygen
Respiratory: Clear to Auscultation and Non Labored Respirations; Negative Accessory Resp Muscle Use
Cardiac: Regular Rhythm and S1/S2
GI: Soft, Nontender, Nondistended and Normal Bowel Sounds
Genito-urinary: Negative Bhatia
Skin: Warm and Dry
Neuro: Awake, Alert, Oriented and AO x 3
Psych: Calm and Intact Judgement/Insight
Data Reviewed
-
Diagnostic Radiology: Report Reviewed by me
CT Scan: Report Reviewed by me
Labs: Labs Reviewed by me
[2024-05-12 15:22] VITALS: BP 123/50
[2024-05-12 17:07] LABS: Glucose - Point of Care 147 mg/dl (70-99)
[2024-05-12 22:10] LABS: Glucose - Point of Care 136 mg/dl (70-99)
[2024-05-12] MEDS: TOPROL XL 25 MG PO (22:32)
[2024-05-12] MEDS: ZETIA 10 MG PO (22:33)
[2024-05-12] MEDS: STERILE WATER FOR INJECTION 10 ML IV (22:33)
[2024-05-12] MEDS: ROCEPHIN 1000 MG IV (22:33)
[2024-05-12 23:10] VITALS: BP 150/56
[2024-05-13 06:36] LABS: Hematocrit 34.1 % (37.0-47.0); Hemoglobin 10.8 g/dL (12.0-16.0); Mean Corp Hgb Conc. 31.7 g/dL (33.0-37.0); Mean Corpuscular Hgb 28.3 pg (27.0-31.0); Mean Corpuscular Volume 89.5 fL (81.0-99.0); Platelet Count 304 10^3/uL (130-400); Red Blood Cell Count 3.81 10^6/uL (4.20-5.40); Red Cell Dist. Width 15.3 % (11.5-14.5); White Blood Cell Count 12.4 10^3/uL (4.8-10.8)
[2024-05-13 07:13] LABS: Glucose - Point of Care 115 mg/dl (70-99)
[2024-05-13 07:33] LABS: Blood Urea Nitrogen 31 mg/dl (7-17); Calcium 9.6 mg/dl (8.4-10.2); Carbon Dioxide 22 mmol/L (22-30); Chloride 102 mmol/L (98-107); Estimated Creatinine Clearance 28 ml/min; Glucose 119 mg/dl (70-99); Potassium 4.2 mmol/L (3.5-5.1); Sodium 133 mmol/L (135-145); eGFR 35.01
[2024-05-13 08:08] VITALS: BP 144/52
[2024-05-13] MEDS: COZAAR 25 MG PO (08:33)
[2024-05-13] MEDS: HEPARIN 5000 UNITS SC (08:33)
[2024-05-13] MEDS: NOVOLOG FLEXPEN-LOW RESISTANCE SC ×2 (08:33→12:15)
[2024-05-13 11:53] LABS: Glucose - Point of Care 130 mg/dl (70-99)
--- NOTE | 2024-05-13 12:28 | CM ---
Chart reviewed. Met with pt
Had O2 assessment - will require home O2 - discussed with pt. Aware - has no preference
Spoke with Caroline at [facility] [phone]
Clinicals faxed to [phone] - awaiting response
Daniela HODGES to follow at discharge
Has ride at d/c
Given IMM
Plan - home with Daniela FINLEY
Fax - [phone]
--- NOTE | 2024-05-13 14:01 | W.PN.HOSP.TC ---
Addendum entered and electronically signed by Gopal Carballo MD 05/15/24 16:05:
[id number]
Original Note:
Today's Communication/Plan
-
home o2
cefdinir to complete 14 day course total
f/u cards, urology, pcp, nephrology, pulmonary, outpt
resume lasix, losartan, hold celecoxib
f/u bmp in 3-5 days
cont toprol
Assessment / Plan
Assessment / Plan
HPI: 73-year-old female past medical history of hypertension,�diabetes, nephrolithiasis, obesity, hernia surgery status post mesh status post removal, presented with left lower quadrant abdominal pain.�
Labs show leukocytosis 20.� Metabolic acidosis with bicarb of 13.� Creatinine of 3.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
xanthogranulomatous pyelonephritis.
Urinalysis shows greater than 100 WBC.
A/P:
# Sepsis POA 2/2 complicated UTI from obstructive L kidney stone
# Staghorn calculus involving the right kidney, to be addressed at later date as per urology
s/p emergent OR for L ureteral stent placement
Urine culture likely contaminated, greater than 100,000 CFU/ML; blood cultures negative
Cont Ceftriaxone while in the hospital with plan to change to PO upon discharge (would treat for 14 days total for complicated UTI) .�DC on cefdinir
Off bhatia 05/07 for voiding trial, pt incontinent of urine
PT OT recc home vs SNF. Pt prefers HH
F/u CBC outpt
-f/u urology outpt
#Hypoxia
-i suspect 2/2 to deconditioning, low lung volumes
-le dopplers negative
-possible acute HFpEF
-s/p lasix
-Ambulate
-Incentive leeann
-f/u pulm outpt, has not been following outpt
#Hyponatremia
-mild
-monitor outpt
f/u bmp outpt
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
# Metabolic acidosis , resolved
# Mild hyperkalemia resolved
SCr 3.7 on admission -> improving
Off further IVF as pt c/o getting more 'swollen' (clinically without significant sign of overload)
Hold DRUM HANDLER celecoxib for now
resume�losartan, resume Lasix
-bmp in 3-5 days with pcp
#5 mm and 4 mm focal opacities against the pleura in the paramediastinal right lower lobe as above
-f/u outpt
# DM2
Accu-Cheks with SSI,
HgbA1c 6.0%
Patient held repaglinide since Thursday05/03/2024, cont to hold
Carb control diet
# HTN-benign
losartan 25 mg daily
cont DRUM HANDLER Toprol
resume lasix
# HLD
Continue Zetia 10 mg at bedtime
# Gout
No reported meds
# Arthritis-unknown type
Hold Celebrex 200 mg Thursday
# Constipation
Senokot-S and Miralax PRN
#Coronary artery calcifications are present.
-f/u cardiology outpt
DVT prophylaxis: added HSQ to SCD
Full code
Dispo: HH vs SNF per PT. Pt prefers HH ;
DW RN
More than 30 minutes spent in discharge including
Final examination of the patient
Summarizing hospital stay
Instructions for continuing care to all relevant caregivers
Preparation of discharge records, prescriptions, and referral forms
Total time spent (36 in minutes):
Anticipated Discharge: Today
Subjective/Interval History
-
Date of Service: May 13, 2024
still hypoxic to 86% on RA on ambulation
Objective Data
-
Labs:
Laboratory Results
05/13/24
05:11
WBC 12.4 H
Hgb 10.8 L
Hct 34.1 L
Plt Count 304
Sodium 133 L
Potassium 4.2
Chloride 102
Carbon Dioxide 22
BUN 31 H
Creatinine 1.5 H
Glucose 119 H
Calcium 9.6
Vital Signs:
Vital Signs
Temp Pulse Resp BP Pulse Ox
98.5 F 73 14 144/52 98
05/13/24 08:08 05/13/24 08:08 05/13/24 08:08 05/13/24 08:08 05/13/24 08:08
I&O
05/12/24 05/13/24 05/14/24
06:59 06:59 06:59
Intake Total 960 / 960 480 / 480
Balance 960 / 960 480 / 480
Review of Systems
-
History Source: Patient
All other systems: Not reviewed unless documented
Physical Exam
-
General: Well Developed, Well Nourished, No Apparent Distress, Comfortable and Conversant; Negative Respiratory Distress
HEENT: Normocephalic, Atraumatic, Nose Appears Normal and Ears Appear Normal; Negative Oxygen
Respiratory: Clear to Auscultation and Non Labored Respirations; Negative Accessory Resp Muscle Use
Cardiac: Regular Rhythm and S1/S2
GI: Soft, Nontender, Nondistended and Normal Bowel Sounds
Genito-urinary: Negative Bhatia
Skin: Warm and Dry
Neuro: Awake, Alert, Oriented and AO x 3
Psych: Calm and Intact Judgement/Insight
Data Reviewed
-
Diagnostic Radiology: Report Reviewed by me
CT Scan: Report Reviewed by me
Labs: Labs Reviewed by me
--- NOTE | 2024-05-13 14:13 | W.DS.TRANS ---
DC Summary - [employer]
-
Discharge Instructions:
Discharge Diagnosis/Procedures # Sepsis POA 2/2 complicated UTI from
obstructive L kidney stone
# Staghorn calculus involving the right kidney,
to be addressed at later date
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
#Hypoxia
Diet Diabetic, Carb Controlled,Low Cholesterol,Low
Fat
Activity As tolerated
Driving Restrictions Not until seen by your Dr
Blood Work cbc and bmp with pcp in 3-5 days
Others Tests Staghorn calculus involving the right kidney
with significant progression since examination
March 07, 2019. Increased fat density within
the central renal hilum and there is stranding
surrounding the left renal pelvis and proximal
ureter. 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
xanthogranulomatous pyelonephritis. - please f/u
with Urology
Coronary artery calcifications are present.
Please correlate with symptoms of and risk
factors for coronary artery disease, with
further workup as clinically appropriate. - F/u
cardiology
Instructions:
Stand-Alone Forms:
Changes to Home Medications: Yes
Discharge Medications:
DC Medications w/original date entered in [employer]
celecoxib 200 mg capsule 200 mg PO MOFR@0900,2100 05/10/19
repaglinide 0.5 mg tablet 0.5 mg PO BID@1100,1800 05/10/19
dicyclomine 20 mg tablet 10 mg PO Q6HPRN PRN stomach pain 05/05/24
ezetimibe 10 mg tablet 10 mg PO HS 05/05/24
furosemide 20 mg tablet 10 mg PO HS 05/05/24
losartan 50 mg tablet 25 mg PO DAILY 05/05/24
metoprolol succinate 25 mg tablet,extended release 24 hr 25 mg PO HS 05/05/24
cefdinir 300 mg capsule 300 mg PO Q12H 6 days #12 caps 05/13/24
Home Medication Changes
cefdinir 300 mg capsule 300 mg PO Q12H 6 days #12 caps 05/13/24
Pending Results: No
[2024-05-13 15:31] VITALS: BP 142/50
== END 2024-05-13 17:25 | disposition home health service (06) | DRG 853 ==
LOC: 2 SOUTH 21:14
PROVIDERS: Clinical Nurse Specialist Family Health; Internal Medicine; ADMITTING PHYSICIAN Hospitalist; ATTENDING PHYSICIAN Internal Medicine; CONSULT PHYSICIAN Specialist; EMERGENCY PHYSICIAN Emergency Medicine; FAMILY PHYSICIAN Family Medicine
PROC: 0T778DZ Dilation of Left Ureter with Intraluminal Device, Via Natural or Artificial Opening Endoscopic (ICD-10-PCS; 2024-05-06)
DX: A41.9 Sepsis, unspecified organism (principal); I50.31 Acute diastolic (congestive) heart failure; N20.2 Calculus of kidney with calculus of ureter; N17.9 Acute kidney failure, unspecified; I13.0 Hypertensive heart and chronic kidney disease with heart failure and stage 1 through stage 4 chronic kidney disease, or unspecified chronic kidney disease; N13.6 Pyonephrosis; E87.1 Hypo-osmolality and hyponatremia; E87.20 Acidosis, unspecified; N18.32 Chronic kidney disease, stage 3b; R09.02 Hypoxemia; E11.22 Type 2 diabetes mellitus with diabetic chronic kidney disease; N21.0 Calculus in bladder; J44.9 Chronic obstructive pulmonary disease, unspecified; Z90.49 Acquired absence of other specified parts of digestive tract; Z87.891 Personal history of nicotine dependence; Z88.8 Allergy status to other drugs, medicaments and biological substances; Z91.041 Radiographic dye allergy status; Z85.42 Personal history of malignant neoplasm of other parts of uterus; Z90.710 Acquired absence of both cervix and uterus; M19.90 Unspecified osteoarthritis, unspecified site; M10.9 Gout, unspecified; E78.5 Hyperlipidemia, unspecified; D64.9 Anemia, unspecified; Z85.41 Personal history of malignant neoplasm of cervix uteri; Z79.899 Other long term (current) drug therapy; I25.10 Atherosclerotic heart disease of native coronary artery without angina pectoris; E87.5 Hyperkalemia; E66.9 Obesity, unspecified; Z68.34 Body mass index [BMI] 34.0-34.9, adult; Z91.040 Latex allergy status; L89.152 Pressure ulcer of sacral region, stage 2
CPT/HCPCS: 51798; 71046; 71250; 74018; 74176; 76000; 80048; 80053; 81003; 81015; 82962; 83036; 83690; 83880; 85025; 85027; 87040; 87086; 93306; 93970; 96365; 97116; 97163; 97166; 97530; 97535; 99285; C2617; Q9950

== ENCOUNTER 2024-06-29 06:01 | Day surgery (SDC) | payer OTHER, SELFPAY ==
[2024-06-29] VITALS (8 sets, daily range): BP systolic 125–149; BP diastolic 46–59; BMI 34.2
[2024-06-29 06:57] LABS: Glucose - Point of Care 134 mg/dl (70-99)
[2024-06-29] MEDS: NORMOSOL-R/PLASMALYTE-A 1000 IV (06:58)
[2024-06-29 08:53] LABS: Glucose - Point of Care 136 mg/dl (70-99)
--- NOTE | 2024-06-29 09:35 | PTCARENOTE ---
Patient and her family (adalberto) told that patient must have someone to stay with her for 24 hours post surgery due to general anesthesia. Patient and family aware.
--- NOTE | 2024-06-29 09:55 | PTCARENOTE ---
Patient OOB to the commode but was unable to void. Patient not required to void prior to discharge.
== END 2024-06-29 10:19 | disposition home or self-care (01) ==
LOC: SDS 06:01
PROVIDERS: ATTENDING PHYSICIAN Specialist
DX: N20.2 Calculus of kidney with calculus of ureter (principal); N12 Tubulo-interstitial nephritis, not specified as acute or chronic; N21.0 Calculus in bladder
CPT/HCPCS: 52356; 74018; 76000; 82962; C1894; C2617

== ENCOUNTER 2025-02-19 00:50 | Inpatient (IN) | payer OTHER, SELFPAY ==
[2025-02-18 16:58] VITALS: BP 150/69
--- NOTE | 2025-02-18 17:47 | ED.GENMED ---
History of Present Illness
<VINICIUS Francis - Last Filed: 02/18/25 23:23>
General
Chief Complaint: Abdominal Symptoms
Source: patient
Exam Limitations: none
Time Seen by Provider: 02/18/25 17:44
Nursing documentation reviewed up to this point in time: agreed with
History of Present Illness
History of Present Illness:
79 yr female with past medical history of kidney stones, chronic kidney disease stage III, hypertension, diabetes presents to the ER for evaluation of abdominal pain that started around 2�3 PM. She complains of generalized abdominal pain mostly in
the left side. She was not sure if this was consistent with her previous kidney stone pain. She does report is slightly different. Patient denies any fever chills denies any urinary frequency or urgency. Pt denies any vomiting diarrhea. Patient
was admitted April/2024 for sepsis related to complicated urinary tract infection with obstructive left kidney stone. She had a staghorn calculus in the right kidney as well at that time.
Past History
<VINICIUS Francis - Last Filed: 02/18/25 23:23>
Past History
ED Past Medical History: COPD and HTN
ED Past Surgical History: Cholecystectomy and Gynecological
Social History
Tobacco: Former smoker
Alcohol: None
Drug: None
Personal:
Living: with family
Phy Exam
<VINICIUS Francis - Last Filed: 02/18/25 23:23>
General Physical Exam
General Presentation: no apparent distress
General age: appears stated age
General Skin: warm and dry
General Habitus: elderly
Gastrointestinal Exam
Gastrointestinal Exam: soft and other (Tender throughout)
Neurological Exam
Neurological Exam: alert and oriented x3
Musculoskeletal Exam
Musculoskeletal Exam: full ROM
Skin Exam
Skin Exam: normal color and warm/dry
Psychiatric Exam
Psychiatric Exam: normal mood/affect
Course
<VINICIUS Francis - Last Filed: 02/18/25 23:23>
Orders/Labs/Results
Orders:
Orders
02/18/25 17:55
IV Insert/Care/Rem.- Treatment PRN
02/18/25 18:13
CT Abd/pel (oral only)-[facility] Only Urgent
Comment:
Reason For Exam: abd pain
Iohexol [Omnipaque] See Protocol PO NOW STA
02/18/25 18:14
0.9% Sodium Chloride 500 ml [Nss] 500 ml IV BOLUS
02/18/25 18:20
Complete Blood Count/With Diff Urgent
Comprehensive Metabolic Panel Urgent
02/18/25 18:54
Ondansetron Injectable [Zofran] 4 mg IV NOW STA
02/18/25 18:56
Bladder Scan- Treatment ONCE
02/18/25 22:01
Urinalysis Reflex To Culture Urgent
Date Specimen was Collected: 02/18/25
Time Specimen was Collected: 17:59
Urine Microscopic Reflex Cult Urgent
Urine Culture Urgent
DIXON Source: U
Specimen Description:
Obtained by: Random
Date Specimen was Collected: 02/18/25
Time Specimen was Collected: 17:59
02/18/25 22:53
Morphine Sulfate 2 mg IV NOW STA
02/18/25 23:11
CefTRIAXone [Rocephin] 1,000 mg IV NOW STA
02/18/25 23:18
Acetaminophen 1000 MG ONCE Acetaminophen 1000MG/100Ml [Ofirmev] 1,000 mg in 100 ml IV ONCE
Acetaminophen IV Indication:: ED Narcotic Naive Pt-ONCE
Abnormal Lab Results
02/18/25 02/18/25
18:20 22:01
WBC 18.8 H 10^3/uL
(4.8-10.8)
MCH 26.6 L pg
(27.0-31.0)
MCHC 31.8 L g/dL
(33.0-37.0)
RDW 15.7 H %
(11.5-14.5)
Plt Count 402 H 10^3/uL
(130-400)
Abs Immat Gran (auto) 0.1 H 10^3/uL
(0-0.05)
Absolute Neuts (auto) 17.1 H 10^3/uL
(1.4-6.5)
Absolute Lymphs (auto) 0.8 L 10^3/uL
(1.2-3.4)
Absolute Monos (auto) 0.7 H 10^3/uL
(0.1-0.6)
Immature Gran % 0.7 H %
(0-0.5)
Neutrophils % 91.0 H %
(42.2-75.2)
Lymphocytes % 4.2 L %
(20.5-51.1)
Carbon Dioxide 21 L mmol/L
(22-30)
BUN 32 H mg/dl
(7-17)
Creatinine 2.0 H mg/dL
(0.6-1.0)
Glucose 171 H mg/dl
(70-99)
Total Protein 8.9 H g/dl
(6.3-8.2)
Ur Occult Blood Reflex 4+ A
(Negative)
Leukocyte Esterase Rfl 3+ A
(Negative)
Urine RBC 30-40 A /HPF
(0-2)
Urine WBC (Reflex) >100 A /HPF
(0-5)
Urine Bacteria (Reflex) Moderate A
(Negative)
Urine Albumin (Reflex) 3+ A
(Neg - Trace)
02/18/25 18:20
02/18/25 18:20
Vital Signs
Initial and Last Documented VS:
Initial Vital Signs
Temp Pulse Resp BP Pulse Ox
97.4 F 87 20 150/69 93
02/18/25 16:58 02/18/25 16:58 02/18/25 16:58 02/18/25 16:58 02/18/25 16:58
Last Documented Vital Signs
Temp Pulse Resp BP Pulse Ox
97.4 F 96 18 133/78 97
02/18/25 16:58 02/18/25 22:00 02/18/25 22:00 02/18/25 21:49 02/18/25 22:20
Iv Therapy Nurse consulted with Physician
Iv Therapy Nurse consulted with physician?: Yes
Name of Physician Consulted: Angelica
<Elba Dominguez, DO - Last Filed: 02/18/25 23:16>
Orders/Labs/Results
Orders:
Orders
02/18/25 17:55
IV Insert/Care/Rem.- Treatment PRN
02/18/25 18:13
CT Abd/pel (oral only)-[facility] Only Urgent
Comment:
Reason For Exam: abd pain
Iohexol [Omnipaque] See Protocol PO NOW STA
02/18/25 18:14
0.9% Sodium Chloride 500 ml [Nss] 500 ml IV BOLUS
02/18/25 18:20
Complete Blood Count/With Diff Urgent
Comprehensive Metabolic Panel Urgent
02/18/25 18:54
Ondansetron Injectable [Zofran] 4 mg IV NOW STA
02/18/25 18:56
Bladder Scan- Treatment ONCE
02/18/25 22:01
Urinalysis Reflex To Culture Urgent
Date Specimen was Collected: 02/18/25
Time Specimen was Collected: 17:59
Urine Microscopic Reflex Cult Urgent
Urine Culture Urgent
DIXON Source: U
Specimen Description:
Obtained by: Random
Date Specimen was Collected: 02/18/25
Time Specimen was Collected: 17:59
02/18/25 22:53
Morphine Sulfate 2 mg IV NOW STA
02/18/25 23:11
CefTRIAXone [Rocephin] 1,000 mg IV NOW STA
02/18/25 23:18
Acetaminophen 1000 MG ONCE Acetaminophen 1000MG/100Ml [Ofirmev] 1,000 mg in 100 ml IV ONCE
Acetaminophen IV Indication:: ED Narcotic Naive Pt-ONCE
Abnormal Lab Results
02/18/25 02/18/25
18:20 22:01
WBC 18.8 H 10^3/uL
(4.8-10.8)
MCH 26.6 L pg
(27.0-31.0)
MCHC 31.8 L g/dL
(33.0-37.0)
RDW 15.7 H %
(11.5-14.5)
Plt Count 402 H 10^3/uL
(130-400)
Abs Immat Gran (auto) 0.1 H 10^3/uL
(0-0.05)
Absolute Neuts (auto) 17.1 H 10^3/uL
(1.4-6.5)
Absolute Lymphs (auto) 0.8 L 10^3/uL
(1.2-3.4)
Absolute Monos (auto) 0.7 H 10^3/uL
(0.1-0.6)
Immature Gran % 0.7 H %
(0-0.5)
Neutrophils % 91.0 H %
(42.2-75.2)
Lymphocytes % 4.2 L %
(20.5-51.1)
Carbon Dioxide 21 L mmol/L
(22-30)
BUN 32 H mg/dl
(7-17)
Creatinine 2.0 H mg/dL
(0.6-1.0)
Glucose 171 H mg/dl
(70-99)
Total Protein 8.9 H g/dl
(6.3-8.2)
Ur Occult Blood Reflex 4+ A
(Negative)
Leukocyte Esterase Rfl 3+ A
(Negative)
Urine RBC 30-40 A /HPF
(0-2)
Urine WBC (Reflex) >100 A /HPF
(0-5)
Urine Bacteria (Reflex) Moderate A
(Negative)
Urine Albumin (Reflex) 3+ A
(Neg - Trace)
02/18/25 18:20
02/18/25 18:20
Vital Signs
Initial and Last Documented VS:
Initial Vital Signs
Temp Pulse Resp BP Pulse Ox
97.4 F 87 20 150/69 93
02/18/25 16:58 02/18/25 16:58 02/18/25 16:58 02/18/25 16:58 02/18/25 16:58
Last Documented Vital Signs
Temp Pulse Resp BP Pulse Ox
97.4 F 96 18 133/78 97
02/18/25 16:58 02/18/25 22:00 02/18/25 22:00 02/18/25 21:49 02/18/25 22:20
<VINICIUS Francis - Last Filed: 02/18/25 23:23>
MDM/Problems Addressed
Differential Diagnosis Includes:
not limited to: Renal colic colitis diverticulitis
MDM/Problems Addressed:
Patient presents for abdominal pain and a 9 mm stone was seen within the left distal ureter resulting in mild left hydronephrosis. She denies any fever or chills. her wbc is 18,000 creatinine 2.0 which is baseline. Urine appears infected. Patient
was given fluids and Rocephin case discussed with urology. Patient is stable in no acute distress will admit to the hospitalist service. Patient does complain of pain not a candidate for NSAIDs with kidney function offered morphine had a reaction
to that in the past became itchy will give IV Ofirmev
Chronic conditions affecting care:
Chronic renal disease
<VINICIUS Francis - Last Filed: 02/18/25 23:23>
*Radiology
Radiology exam reviewed: radiology read reviewed
*Pulse Oximetry
SaO2: 97
Patient hypoxic: no
*Critical Care Note
Total Time (30-74mins, 75-104mins- exclusive of procedures): Not Applicable
<VINICIUS Francis - Last Filed: 02/18/25 23:23>
Patient Management
Discussion with other providers: [employer] Operator (Urology Dr. Kinsey)
ED Attending Note
<VINICIUS Francis - Last Filed: 02/18/25 23:23>
-
Portions of this chart may have been created with voice recognition software.� Occasional wrong word or��sound alike� substitutions may have occurred due to the inherent limitations of voice recognition software.
<Elba Dominguez DO - Last Filed: 02/18/25 23:16>
ED Attending Note
Patient seen and examined by attending physician: Yes
I performed the substantive portion of visit, reviewed & personally made and approve the management plan that is documented in note by myself or MARIXA.: Yes
I performed a history and physical exam of patient and discussed management with resident, I reviewed resident's note and agree with documented findings and plan of care.: Yes
ED Attending Note:
79-year-old female with prior history of nephrolithiasis presenting to the emergency department for left lower quadrant abdominal pain. Patient reports history of obstructing kidney stone in the past, complicated by infection, requiring ureteral
stent placement. Event occurred in May 2024. Reports today, had difficulty passing her urine with pain, which prompted her to come to the hospital. Denies fever. Vital signs stable in the emergency department.
On examination, patient resting comfortably, nontoxic. Generalized tenderness to the left lower region of the abdomen. Patient reports that her symptoms feel similar to prior kidney stone. For this reason workup initiated with laboratory analysis
and CT abdomen pelvis. Labs show significant leukocytosis. CT consistent with 9 mm stone resulting in left hydronephrosis. Urinalysis with some concerning signs of infection, WBCs. At this time, patient without present concern for sepsis,
however concerning signs of kidney stone, and possible UTI. Will start patient on antibiotics, continue IV fluids, pain control, and consult with urology
Discharge Plan
Departure
Prescriptions:
No Action
celecoxib 200 MG capsule
200 mg PO .0900,2100
Rx Instructions:
Takes prior to physical therapy
repaglinide 0.5 MG tablet
0.5 mg PO BID@1100,1800
furosemide 20 mg Tablet
20 mg PO DAILY
metoprolol succinate 25 mg Tablet Extended Release 24 Hr
25 mg PO HS
ezetimibe 10 mg Tablet
10 mg PO HS
losartan 50 MG tablet
25 mg PO DAILY
nifedipine 30 mg Tablet Extended Release 24hr
30 mg PO DAILY
cefdinir 300 mg Capsule
300 mg PO BID
methenamine hippurate 1 gram tablet
1 g PO BID Qty: 180 2RF
Referrals:
UNKNOWN - PT DOES,NOT KNOW [Family Provider]
Interventions
Interventions:
*Risk Screen - Suicide Last Done: 02/18/25 18:21
*General Assessment Last Done: 02/18/25 16:58
*Neglect/Abuse Screening Last Done: 02/18/25 18:21
AD-Ecgneb-Fcdoaudzxa Assessment Last Done: 02/18/25 19:00
Discharge Date and Time
Print Language: ARMENIAN
[2025-02-18 18:21] VITALS: BMI 33.2
[2025-02-18 18:28] LABS: Hematocrit 37.7 % (37.0-47.0); Hemoglobin 12.0 g/dL (12.0-16.0); Mean Corp Hgb Conc. 31.8 g/dL (33.0-37.0); Mean Corpuscular Volume 83.6 fL (81.0-99.0); Nucleated Red Blood Cells % 0 %; Platelet Count 402 10^3/uL (130-400); Red Cell Dist. Width 15.7 % (11.5-14.5)
[2025-02-18] MEDS: NSS 500 IV (18:34)
[2025-02-18] MEDS: OMNIPAQUE 50 ML PO (18:35)
[2025-02-18 18:52] LABS: ALT (SGPT) < 10 U/L (0-35); AST (SGOT) 15 U/L (14-36); Albumin 3.7 g/dl (3.5-5.0); Alkaline Phosphatase 75 U/L (38-126); Blood Urea Nitrogen 32 mg/dl (7-17); Calcium 9.5 mg/dl (8.4-10.2); Carbon Dioxide 21 mmol/L (22-30); Chloride 105 mmol/L (98-107); Estimated Creatinine Clearance 20 ml/min; Glucose 171 mg/dl (70-99); Potassium 4.3 mmol/L (3.5-5.1); Sodium 135 mmol/L (135-145); Total Protein 8.9 g/dl (6.3-8.2); eGFR 24.64
[2025-02-18] MEDS: ZOFRAN 4 MG IV (19:03)
[2025-02-18 19:09] VITALS: BP 142/60
[2025-02-18 20:00] VITALS: BP 147/71
[2025-02-18 21:49] VITALS: BP 133/78
[2025-02-18 22:01] VITALS: BP 140/77
[2025-02-18 22:09] LABS: Urine Character Cloudy (Clear)
[2025-02-18 22:16] LABS: Urine White Cell >100 /HPF (0-5)
[2025-02-18 22:17] LABS: Urine Red Blood Cell 30-40 /HPF (0-2)
[2025-02-18 22:37] LABS: Urine Squamous Cell 0-2 /LPF (Few)
[2025-02-18 23:00] VITALS: BP 134/89
[2025-02-18] MEDS: ROCEPHIN 1000 MG IV (23:31)
[2025-02-18] MEDS: OFIRMEV 100 IV (23:32)
--- NOTE | 2025-02-18 23:32 | ED.GENMED ---
History of Present Illness
General
Chief Complaint: Abdominal Symptoms
Time Seen by Provider: 02/18/25 17:44
Past History
Past History
ED Past Medical History: COPD and HTN
ED Past Surgical History: Cholecystectomy and Gynecological
Social History
Tobacco: Former smoker
Alcohol: None
Drug: None
Personal:
Living: with family
Phy Exam
General Physical Exam
General Presentation: no apparent distress
General age: appears stated age
General Skin: warm and dry
General Habitus: elderly
General Mental: alert
Neurological Exam
Neurological Exam: alert and oriented x3
Musculoskeletal Exam
Musculoskeletal Exam: full ROM
Skin Exam
Skin Exam: normal color and warm/dry
Psychiatric Exam
Psychiatric Exam: normal mood/affect
Course
Orders/Labs/Results
Orders:
Orders
02/18/25 17:55
IV Insert/Care/Rem.- Treatment PRN
02/18/25 18:13
CT Abd/pel (oral only)-[facility] Only Urgent
Comment:
Reason For Exam: abd pain
Iohexol [Omnipaque] See Protocol PO NOW STA
02/18/25 18:14
0.9% Sodium Chloride 500 ml [Nss] 500 ml IV BOLUS
02/18/25 18:20
Complete Blood Count/With Diff Urgent
Comprehensive Metabolic Panel Urgent
02/18/25 18:54
Ondansetron Injectable [Zofran] 4 mg IV NOW STA
02/18/25 18:56
Bladder Scan- Treatment ONCE
02/18/25 22:01
Urinalysis Reflex To Culture Urgent
Date Specimen was Collected: 02/18/25
Time Specimen was Collected: 17:59
Urine Microscopic Reflex Cult Urgent
Urine Culture Urgent
DIXON Source: U
Specimen Description:
Obtained by: Random
Date Specimen was Collected: 02/18/25
Time Specimen was Collected: 17:59
02/18/25 22:53
Morphine Sulfate 2 mg IV NOW STA
02/18/25 23:11
CefTRIAXone [Rocephin] 1,000 mg IV NOW STA
02/18/25 23:18
Acetaminophen 1000MG/100Ml [Ofirmev] 1,000 mg in 100 ml IV ONCE
Acetaminophen IV Indication:: ED Narcotic Naive Pt-ONCE
Abnormal Lab Results
02/18/25 02/18/25
18:20 22:01
WBC 18.8 H 10^3/uL
(4.8-10.8)
MCH 26.6 L pg
(27.0-31.0)
MCHC 31.8 L g/dL
(33.0-37.0)
RDW 15.7 H %
(11.5-14.5)
Plt Count 402 H 10^3/uL
(130-400)
Abs Immat Gran (auto) 0.1 H 10^3/uL
(0-0.05)
Absolute Neuts (auto) 17.1 H 10^3/uL
(1.4-6.5)
Absolute Lymphs (auto) 0.8 L 10^3/uL
(1.2-3.4)
Absolute Monos (auto) 0.7 H 10^3/uL
(0.1-0.6)
Immature Gran % 0.7 H %
(0-0.5)
Neutrophils % 91.0 H %
(42.2-75.2)
Lymphocytes % 4.2 L %
(20.5-51.1)
Carbon Dioxide 21 L mmol/L
(22-30)
BUN 32 H mg/dl
(7-17)
Creatinine 2.0 H mg/dL
(0.6-1.0)
Glucose 171 H mg/dl
(70-99)
Total Protein 8.9 H g/dl
(6.3-8.2)
Ur Occult Blood Reflex 4+ A
(Negative)
Leukocyte Esterase Rfl 3+ A
(Negative)
Urine RBC 30-40 A /HPF
(0-2)
Urine WBC (Reflex) >100 A /HPF
(0-5)
Urine Bacteria (Reflex) Moderate A
(Negative)
Urine Albumin (Reflex) 3+ A
(Neg - Trace)
02/18/25 18:20
02/18/25 18:20
Vital Signs
Initial and Last Documented VS:
Initial Vital Signs
Temp Pulse Resp BP Pulse Ox
97.4 F 87 20 150/69 93
02/18/25 16:58 02/18/25 16:58 02/18/25 16:58 02/18/25 16:58 02/18/25 16:58
Last Documented Vital Signs
Temp Pulse Resp BP Pulse Ox
97.4 F 96 18 133/78 97
02/18/25 16:58 02/18/25 22:00 02/18/25 22:00 02/18/25 21:49 02/18/25 23:23
MDM/Problems Addressed
MDM/Problems Addressed:
Patient is an 79-year-old female with history of
*Radiology
Radiology exam reviewed: radiology read reviewed
*Pulse Oximetry
SaO2: 97
Oxygen Mode of Delivery: Room air
Patient hypoxic: no
ED Attending Note
-
Portions of this chart may have been created with voice recognition software.� Occasional wrong word or��sound alike� substitutions may have occurred due to the inherent limitations of voice recognition software.
Discharge Plan
Departure
Patient Disposition: Admit
Date of Disposition: 02/18/25
Time of Disposition: 23:24
Admit to: Med/Surg
Admit to doctor: hospitalist
Presentation/result/management discussed w/ accepting MD/DO: Hospitalist
Patient with high blood pressure during this ER visit?: Yes
Condition: Fair
Covid-19: Not Applicable
Discharge Problem:
nephrolithiasis, Acute UTI
Prescriptions:
No Action
celecoxib 200 MG capsule
200 mg PO .0900,2100
Rx Instructions:
Takes prior to physical therapy
repaglinide 0.5 MG tablet
0.5 mg PO BID@1100,1800
furosemide 20 mg Tablet
20 mg PO DAILY
metoprolol succinate 25 mg Tablet Extended Release 24 Hr
25 mg PO HS
ezetimibe 10 mg Tablet
10 mg PO HS
losartan 50 MG tablet
25 mg PO DAILY
nifedipine 30 mg Tablet Extended Release 24hr
30 mg PO DAILY
cefdinir 300 mg Capsule
300 mg PO BID
methenamine hippurate 1 gram tablet
1 g PO BID Qty: 180 2RF
Referrals:
UNKNOWN - PT DOES,NOT KNOW [Family Provider]
Interventions
Interventions:
*Risk Screen - Suicide Last Done: 02/18/25 18:21
*General Assessment Last Done: 02/18/25 16:58
*Neglect/Abuse Screening Last Done: 02/18/25 18:21
SL-Orgrbw-Vzmlkrniox Assessment Last Done: 02/18/25 19:00
Discharge Date and Time
Print Language: MACEDONIAN
--- NOTE | 2025-02-18 23:44 | HPS.HSE ---
Family Physician
-
Family Physician: NOT KNOW UNKNOWN - PT DOES
Chief Complaint
-
Abdominal pain
History of Present Illness
Patient is a 79-year-old female with past medical history of recurrent nephrolithiasis, hypertension, hyperlipidemia, CKD, recurrent UTIs with obstructive hydronephrosis who presents to the emergency department with abdominal pain.
Patient reports that acute worsening of abdominal pain. She does state pain is localized to the left lower quadrant. Associate with nausea but no vomiting. She had no fevers or chills. She denies dysuria, hematuria. Does report frequent
urination which she suspect is secondary to having to drink approximately 3 to 4 L of water daily and also taking 20 mg of furosemide daily. Denies urgency. She denies any diarrhea. This pain is similar to her prior episodes of symptomatic kidney
stones.
Patient was admitted in May for symptomatic kidney stones and infection. 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 She ultimately underwent outpatient procedure for left renal
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
Today in emergency department she remains afebrile, blood pressure was 132/78 with a pulse of 82 and oxygen saturation were 96% on room air.
WBC was 18.8, hemoglobin and platelets were unremarkable. Electrolytes were normal. BUN was 32 and creatinine was elevated to 2.0 from a baseline of around 1.6. Glucose was 171. UA was markedly positive for leukocyte esterase with bacteria and
WBCs.
CT of the abdomen and pelvis showing a 9 mm stone within the distal left ureter resulting in mild left hydro nephrosis, the abnormal appearance of the right kidney with moderate hydronephrosis and extensive started on calculus was seen previously
likely represents a chronic stent or granulomatous nephritis.
Medical History
Past Medical History
Past Medical History: Reports Other
Additional Past Medical History:
CKD 3B and follows with Dr. Guerra from nephrology
Renal calculi right kidney
HTN
HLD
DM 2
Gout
Uterine CA status post hysterectomy
Arthritis
UPPER SKAGIT
Anemia
Abdominal hernia repair with mesh 1994
Removed infected mesh from hernia repair 2018
Former sleep apnea resolved after alone weight loss 190 pounds in 5 years she states it took her
Past Surgical History: Reports Other
Additional Past Surgical History:
Hysterectomy secondary to cervical cancer
D&C
Abdominal hernia repair with mesh 1994
Removal of infected mesh from hernia repair 2018
Cholecystectomy
Abscess 2005
Carpal tunnel syndrome
Social History
Tobacco: Non-smoker
Alcohol: None
Drug: None
Personal: Single
Living: Alone
Employment: Retired
Family History
Family History: Other (Mother age 80s killed herself by overdose on pain meds, father lungs CA age 78 Sister living with history of CKD and lupus 1 brother in [place] war, son DM 2)
Allergies / Home Medications
Allergies reflects when Allergies were last updated in [employer].
Home Medications with original date entered in [employer]
Allergy/Medication List:
Allergies
Allergy/AdvReac Type Severity Reaction Status Date / Time
adhesive Allergy Rash Verified 05/05/24 16:39
bee venom protein (honey bee) Allergy Difficulty Verified 05/05/24 16:39
Breathing
Iodinated Contrast Media Allergy RASH, SOB Verified 05/05/24 16:39
latex Allergy RASH, Verified 05/05/24 16:39
ITCHING
levofloxacin [From Levaquin] Allergy Unknown Verified 05/05/24 16:39
nylon Allergy Rash, Verified 05/05/24 16:39
Itching
wool Allergy Rash, Verified 05/05/24 16:39
Itching
Hot Peppers Allergy SOB, Uncoded 05/05/24 16:39
Facial
swell
papertape Allergy Skin Uncoded 05/05/24 16:39
Breakdown
seasonal Allergy post nasal Uncoded 05/05/24 16:39
drip,congestion
Walnuts Allergy Difficulty Uncoded 05/05/24 16:39
Breathing
Home Medications
celecoxib 200 mg capsule 200 mg PO MOFR@0900,2100 05/10/19
repaglinide 0.5 mg tablet 0.5 mg PO BID@1100,1800 05/10/19
dicyclomine 20 mg tablet 10 mg PO Q6HPRN PRN stomach pain 05/05/24
ezetimibe 10 mg tablet 10 mg PO HS 05/05/24
furosemide 20 mg tablet 10 mg PO HS 05/05/24
losartan 50 mg tablet 25 mg PO DAILY 05/05/24
metoprolol succinate 25 mg tablet,extended release 24 hr 25 mg PO HS 05/05/24
Review of Systems
-
Constitutional: Reports No Symptoms
EENT: Reports No Symptoms
Respiratory: Reports No Symptoms
Cardiac: Reports No Symptoms
Abdomen/GI: Reports No Symptoms
: Reports No Symptoms
Musculoskeletal: Reports No Symptoms
Skin: Reports No Symptoms
Neurological: Reports No Symptoms
Endocrine: Reports No Symptoms
Hematologic/Lymphatic: Reports No Symptoms
Psych: Reports No Symptoms
Physical Exam
Vital Signs
Vital Signs
Temp Pulse Resp BP Pulse Ox
97.6 F 82 16 133/78 96
02/18/25 23:35 02/18/25 23:35 02/18/25 23:35 02/18/25 21:49 02/18/25 23:35
Physical Exam
General: Well Developed, Conversant and Pain; No Fever or Chills
HEENT: NormoCephalic, Anicteric, PERRLA, [place] Conjunctivae and No Ptosis
Respiratory: Clear; No Wheezes, Rales or Rhonchi
Cardiac: S1/S2 and Regular Rhythm; No Murmur, Rub, Gallop or Peripheral Edema
Breast: Deferred by me
GI: Soft, Non Distended, Normal Bowel Sounds, Tender (Left anterior abdomen, left flank) and No Hepatosplenomegaly
Rectal: Deferred by Provider
Genito-urinary: Deferred by me
Musculoskeletal: No Clubbing, No Cyanosis and No Edema
Skin: Warm and Dry; No Rash or Jaundice
Neuro: AO x 3, No Motor Deficits, Nonfocal/grossly intact, Cranial Nerves Intact and No Sensory Deficits; No Slurred Speech, Facial Droop, Tremors or Sedated
Psych: Calm
Laboratory Results
-
02/18/25 18:20
02/18/25 18:20
Laboratory Results
Total Bilirubin 0.5 mg/dl (0.2-1.3) 02/18/25 18:20
AST 15 U/L (14-36) 02/18/25 18:20
ALT < 10 U/L (0-35) 02/18/25 18:20
Alkaline Phosphatase 75 U/L (38-126) 02/18/25 18:20
Data Reviewed
-
CT Scan: Report Reviewed by me
Lab Data: Labs Reviewed by me
Old Records: Reviewed
Impression/Plan
-
IMPRESSION:
79-year-old with history of nephrolithiasis, CKD, hypertension, xth-rpqyomn-[id number] diabetes who presents to the emergency department with recurrent episodes of abdominal pain and found to have a obstructing kidney stone, 9 mm left distal ureter
with mild left hydronephrosis. The UA is positive and likely consistent with a Proteus UTI similar to previous. She has no fevers. She does have a peripheral leukocytosis to 18.8. There is some mild JEWELL which likely can be experienced by the
hydro and not secondary to sepsis.
PLAN:
Symptomatic nephrolithiasis�9 mm stone in the distal left ureter with evidence of cystitis but no sepsis
� Admit to [facility]
� N.p.o. for now
� Was urine culture sent
� Will get blood cultures afebrile
� IV ceftriaxone for now
� Pain control, antiemetics
� IV fluids
� Urology consulted and aware, OR early am.
JEWELL on CKD
� Likely secondary to obstruction, IV fluids for now and plan for decompression in a.m.
� Avoid nephrotoxins
� Renal dose medications
DM II
- sliding scale insulin while npo
- continue prandin 0.5 bid when tolerating diet
DVT prophylaxis�no thinners for now, SCDs pending surgery
� CODE STATUS -full code
[2025-02-18 23:45] LABS: Glucose - Point of Care 145 mg/dl (70-99)
[2025-02-19] VITALS (13 sets, daily range): BP systolic 94–157; BP diastolic 50–77; BMI 33.2
--- NOTE | 2025-02-19 02:15 | PTCARENOTE ---
Patient arrived from ED to [place]. walked into room with her own can and stand by supervision of staff. Oriented to room and plan of care. VSS, no needs at this time. Assessment on going
[2025-02-19] MEDS: LR 1000 IV (02:46)
--- NOTE | 2025-02-19 06:19 | CONS.URO ---
Consultation
-
Date/Time Consultation Performed: 02/19/2025 0605
Requesting Provider: ED
Performing Provider: Tio
Reason for Consultation: left ureteral stone; UTI
Medical History
History of Present Illness
79 yo female with h/o urolithiasis presented to ED with Left-abdominal pain.
CT demonstrates a 9 mm left lower ureteral stone with obstruction, plus numerous other bilateral renal stones.
She has elected to date NOT to address Right Staghorn Renal Calculus.
Past Medical History
Past Medical History: Other (CKD 3B and follows with Dr. Guerra from nephrology Renal calculi right kidney HTN HLD DM 2 Gout Uterine CA status post hysterectomy Arthritis [place] Anemia)
Past Surgical History: Urological (04/2024 Left Ureteroscopy with Laser Lithotripsy and Stenting) and Other (Hysterectomy- cervical cancer, Abdominal hernia repair with mesh 1994, Removal of infected mesh from hernia repair 2018, Cholecystectomy,
2005 Carpal tunnel syndrom)
Allergies/Home Medications
Allergies
Allergy/AdvReac Type Severity Reaction Status Date / Time
adhesive Allergy Rash Verified 02/18/25 16:58
adhesive tape Allergy Skin Verified 02/18/25 16:58
Breakdown
bee venom protein (honey bee) Allergy Difficulty Verified 02/18/25 16:58
Breathing,
severe
swelling
Iodinated Contrast Media Allergy RASH, SOB Verified 02/18/25 16:58
latex Allergy RASH, Verified 02/18/25 16:58
ITCHING
levofloxacin (From Levaquin) Allergy neuropathy Verified 02/18/25 16:58
of hands
and feet
nylon Allergy Rash, Verified 02/18/25 16:58
Itching
pepper (genus Capsicum) Allergy SOB, Verified 02/18/25 16:58
Facial
swell
pollen extracts Allergy post nasal Verified 02/18/25 16:58
drip,
congestion
walnut Allergy Difficulty Verified 02/18/25 16:58
Breathing
wool Allergy Rash, Verified 02/18/25 16:58
Itching
Home Medications
�Medication �Instructions �Recorded �Confirmed �Type
celecoxib 200 mg capsule 200 mg PO .0900,2100 Takes prior 05/10/19 06/29/24 History
Held on 05/10/24. to excercise
Instructions: Resume on
05/18/24. until cleared by pcp
repaglinide 0.5 mg tablet 0.5 mg PO BID@1100,1800 05/10/19 06/29/24 History
ezetimibe 10 mg tablet 10 mg PO HS 05/05/24 06/29/24 History
furosemide 20 mg tablet 20 mg PO DAILY 05/05/24 06/29/24 History
losartan 50 mg tablet 25 mg PO DAILY 05/05/24 06/29/24 History
metoprolol succinate 25 mg 25 mg PO HS 05/05/24 06/29/24 History
tablet,extended release 24 hr
nifedipine 30 mg tablet,extended 30 mg PO DAILY 06/24/24 06/29/24 History
release 24 hr
cefdinir 300 mg capsule 300 mg PO BID 06/29/24 06/29/24 History
methenamine hippurate 1 gram tablet 1 g PO BID to suppress chronic UTI 06/29/24 Rx
-- start after Cefdinir #180 tabs
Physical Exam
Vital Signs
Vital Signs
Temp Pulse Resp BP Pulse Ox
98.3 F 82 17 145/70 98
02/19/25 02:19 02/19/25 02:19 02/19/25 02:19 02/19/25 02:19 02/19/25 02:19
Physical Exam
elderly female asleep upon room entry
General: No Apparent Distress
HEENT: Other (H of H)
GI: Soft (surgical scar, pannus)
Psych: Calm and Intact Judgement
Assessment / Plan
-
1. Left Ureteral Calculus, ~ 8mm, lower, obstructing
2. Acute on chronic renal insufficiency
3. Right Staghorn renal calculus
4. Left Renal calculi
5. Suspected UTI
Plan: Will bring to OR this AM for Left Ureteroscopy, Stoen Removal and Stenting
Data Reviewed
-
CT Scan: Image personally visualized and interpreted
Lab Data: Labs Reviewed
Old Records: Reviewed
[2025-02-19 06:31] LABS: Glucose - Point of Care 84 mg/dl (70-99)
[2025-02-19 07:51] LABS: Hematocrit 32.8 % (37.0-47.0); Hemoglobin 10.3 g/dL (12.0-16.0); Mean Corp Hgb Conc. 31.4 g/dL (33.0-37.0); Mean Corpuscular Volume 83.7 fL (81.0-99.0); Platelet Count 357 10^3/uL (130-400); Red Cell Dist. Width 15.9 % (11.5-14.5)
[2025-02-19] MEDS: DICLOFENAC 1% TOPICAL GEL TOPICAL (08:00)
[2025-02-19 08:17] LABS: Blood Urea Nitrogen 29 mg/dl (7-17); Calcium 9.2 mg/dl (8.4-10.2); Carbon Dioxide 21 mmol/L (22-30); Chloride 107 mmol/L (98-107); Estimated Creatinine Clearance 22 ml/min; Glucose 80 mg/dl (70-99); Potassium 4.3 mmol/L (3.5-5.1); Sodium 135 mmol/L (135-145); eGFR 26.20
[2025-02-19] MEDS: NOVOLOG FLEXPEN-LOW RESISTANCE SC ×2 (08:25→12:00)
[2025-02-19 08:27] LABS: Glucose - Point of Care 99 mg/dl (70-99)
--- NOTE | 2025-02-19 08:33 | W.PN.HOSP.TC ---
Today's Communication/Plan
-
Patient doing well post-op
Continue antibiotics
Start subq Heparin DVT PPx
See plan
Assessment / Plan
Assessment / Plan
Physical Exam
General: Well Developed, Conversant
HEENT: NormoCephalic
Respiratory: Clear
Cardiac: S1/S2 and Regular Rhythm
GI: Soft, Non Distended, Normal Bowel Sounds, Nontender
Musculoskeletal: No Cyanosis and No Edema
Skin: Warm and Dry
Neuro: AAO x 3, No Motor Deficits, Nonfocal/grossly intact, Cranial Nerves Intact and No Sensory Deficits
Psych: Calm
Assessment/Plan
79-year-old female with past medical history of recurrent nephrolithiasis, hypertension, hyperlipidemia, CKD, recurrent UTIs with obstructive hydronephrosis who presented to the emergency department with abdominal pain.
She did state pain is localized to the left lower quadrant. Associate with nausea but no vomiting. She had no fevers or chills. She denied dysuria, hematuria. Did report frequent urination which she suspect is secondary to having to drink
approximately 3 to 4 L of water daily and also taking 20 mg of furosemide daily. Denied urgency. She denied any diarrhea. This pain is similar to her prior episodes of symptomatic kidney stones.
Patient was admitted in May for symptomatic kidney stones and infection. 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 She ultimately underwent outpatient procedure for left renal
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
WBC was 18.8, hemoglobin and platelets were unremarkable. Electrolytes were normal. BUN was 32 and creatinine was elevated to 2.0 from a baseline of around 1.6. Glucose was 171. UA was markedly positive for leukocyte esterase with bacteria and
WBCs.
Symptomatic nephrolithiasis�9 mm stone within the distal left ureter at the pelvic inlet, associated with mild left hydroureteronephrosis; additional intrarenal stones on the left side (as per CT report)
Findings suggestive of xanthogranulomatous pyelonephritis of the right kidney, also seen on prior CT (as per CT report)
Tiny bubbles of air within the right renal collecting system, new compared to prior CT (as per CT report)
Complicated UTI
Leukocytosis
- Now s/p Left Ureteroscopy, Laser Lithotripsy, Basket Extraction of Stone Fragments on 02/19/[address] Kinsey
� CT of the abdomen and pelvis findings noted
� Diabetic Diet post-op
� Follow cultures
� IV ceftriaxone for now -- first dose was in ER on 02/18/25
� Pain control, antiemetics
� Urology consulted and aware, OR early am.
JEWELL on CKD
� Likely secondary to obstruction, IV fluids for now and plan for decompression in a.m.
� Avoid nephrotoxins
� Renal dose medications
Type 2 Diabetes Mellitus
- sliding scale insulin and accuchecks
- Diabetic Diet post-op
Portal and retroperitoneal lymphadenopathy within the upper abdomen. Largest lymph node is located adjacent to the right adrenal gland, measuring 2 cm in diameter
Lymph nodes are unchanged compared to most recent prior study, however are new compared to prior CT dated 03/07/2019
-Above findings are from CT radiologist's report
-Will need outpatient follow-up
Heterogeneous attenuation within the gallbladder, which may be related to gallbladder sludge (as seen on CT report, as per radiologist)
-Consider right upper quadrant ultrasound for further evaluation.
DVT prophylaxis: SCDs. Subq Heparin started evening of 02/19/25 (I confirmed with surgeon that it is okay to start at that time)
CODE STATUS: full code
Anticipated Discharge: 24 - 48 hours
Subjective/Interval History
-
Date of Service: February 19, 2025
Patient was seen and examined. She denied any fever, chest pain, SOB, numbness or tingling in her extremities.
Objective Data
-
Labs:
Laboratory Results
02/19/25
07:33
WBC 15.2 H
Hgb 10.3 L
Hct 32.8 L
Plt Count 357
Sodium 135
Potassium 4.3
Chloride 107
Carbon Dioxide 21 L
BUN 29 H
Creatinine 1.9 H
Glucose 80
Calcium 9.2
Vital Signs:
Vital Signs
Temp Pulse Resp BP Pulse Ox
98.3 F 82 17 145/70 98
02/19/25 02:19 02/19/25 02:19 02/19/25 02:19 02/19/25 02:19 02/19/25 02:19
I&O
02/18/25 02/19/25 02/20/25
06:59 06:59 06:59
Intake Total 550 / 550
Balance 550 / 550
[2025-02-19] MEDS: PROCARDIA XL (EXTENDED RELEASE) PO (09:08)
[2025-02-19] MEDS: SODIUM BICARBONATE PO (09:09)
--- NOTE | 2025-02-19 10:18 | W.SUR.PREOP ---
Pre-Operative Surgical Note
-
I have examined this patient prior to the performance of the scheduled procedure.
Consent signed.
--- NOTE | 2025-02-19 11:41 | W.IMMPOSTOP ---
Surgical Immed Post Op Note
-
Primary Surgeon: Tio
Pre-op Diagnosis: Left Ureteral Stone, obstructing
Right Staghorn Renal Calculus
Chronic UTI
Left Renal Calculi, non-obstructing
Post-op Diagnosis: same
Procedure Performed: Left Ureteroscopy, Laser Lithotripsy, Basket Extraction of Stone Fragments
Anesthesia Type: LMA
Specimen / Cultures: stone fragments for culture and compositional analysis
Estimated Blood Loss: none
Complications:none
Operative Findings: purulent urine; chalky, low-integrity, white-yellow distal left ureteral stone
6 Fr 24 cm left ureteral stent placed
[2025-02-19 12:12] LABS: Glucose - Point of Care 89 mg/dl (70-99)
--- NOTE | 2025-02-19 12:30 | PTCARENOTE ---
Pt received from the PACU via bed. Transport was w/o incident. Pt is AAOx3, HRR, LCTA, Pulse ox 98% 2Lvia nc. VSS, Pt is afebrile. Pt instructed on plan of care. Pt verbalized understanding of instructions. Pt denies pain or nausea at this time.
Call matias is within reach.
[2025-02-19] MEDS: DICLOFENAC 1% TOPICAL GEL 4 GRAM TOPICAL ×2 (12:43→17:35)
[2025-02-19] MEDS: PROCARDIA XL (EXTENDED RELEASE) 30 MG PO (12:52)
--- NOTE | 2025-02-19 16:00 | CM ---
CM met with pt at bedside.
Confirmed PCP is Dr. Farida Yuan. Pharmacy is [facility].
Pt is ind prior to admission. No DME. Does not drive.
Currently goes to outpatient PT at [facility] in [place]. Hx of VN with Daniela. Preference is to return home and resume outpatient PT 3 times/week.
CM to follow and assist.
[2025-02-19 17:43] LABS: Glucose - Point of Care 267 mg/dl (70-99)
[2025-02-19] MEDS: NOVOLOG FLEXPEN-LOW RESISTANCE 3 UNITS SC (17:43)
[2025-02-19] MEDS: DICLOFENAC 1% TOPICAL GEL 100 GRAM TOPICAL (22:26)
[2025-02-19] MEDS: SODIUM BICARBONATE 650 MG PO (22:26)
[2025-02-19] MEDS: ZETIA 10 MG PO (22:26)
[2025-02-19] MEDS: HEPARIN 5000 UNITS SC (22:27)
[2025-02-19] MEDS: ROCEPHIN 1000 MG IV (22:40)
[2025-02-19] MEDS: STERILE WATER FOR INJECTION 10 ML IV (22:40)
[2025-02-20 00:08] LABS: Glucose - Point of Care 167 mg/dl (70-99)
[2025-02-20 03:00] VITALS: BP 130/62
[2025-02-20 07:00] VITALS: BP 141/59
[2025-02-20 07:43] LABS: Hematocrit 34.1 % (37.0-47.0); Hemoglobin 10.7 g/dL (12.0-16.0); Mean Corp Hgb Conc. 31.4 g/dL (33.0-37.0); Mean Corpuscular Volume 83.6 fL (81.0-99.0); Nucleated Red Blood Cells % 0 %; Platelet Count 404 10^3/uL (130-400); Red Cell Dist. Width 15.9 % (11.5-14.5)
[2025-02-20 07:51] LABS: Glucose - Point of Care 145 mg/dl (70-99)
--- NOTE | 2025-02-20 07:59 | W.PN.URO.CBU ---
Today's Communication / Plan
-
abx per micro
Assessment / Plan
-
Left Ureteral Stone, obstructing
Right Staghorn Renal Calculus
Chronic UTI
Left Renal Calculi, non-obstructing s/p Left Ureteroscopy, Laser Lithotripsy, Basket Extraction of Stone Fragments
Diagnosis
-
Date of Service: February 20, 2025
-
Patient Diagnosis:
Left Ureteral Stone, obstructing
Right Staghorn Renal Calculus
Chronic UTI
Left Renal Calculi, non-obstructing
s/p Left Ureteroscopy, Laser Lithotripsy, Basket Extraction of Stone Fragments on 02/19/2025
Subjective
-
asleep
Objective
-
Vital Signs
Temp Pulse Resp BP Pulse Ox
98.0 F 72 16 130/62 93
02/20/25 03:00 02/20/25 03:00 02/20/25 03:00 02/20/25 03:00 02/20/25 03:00
Intake and Output
02/19/25 02/20/25 02/21/25
06:59 06:59 06:59
Intake Total 550 / 550 530 / 530
Balance 550 / 550 530 / 530
Intake:
Oral fluids 480 / 480
IV fluids (Total) 550 / 550 50 / 50
Normosol 50 / 50
Other:
Number of approximated LARGE 1
amounts of urine
Laboratory Results
02/20/25 07:10
urine and stone cultures: pending
Physical Exam
-
General - asleep
[2025-02-20] MEDS: NOVOLOG FLEXPEN-LOW RESISTANCE SC ×3 (08:08→17:29)
[2025-02-20 08:21] LABS: Blood Urea Nitrogen 34 mg/dl (7-17); Calcium 9.6 mg/dl (8.4-10.2); Carbon Dioxide 20 mmol/L (22-30); Chloride 106 mmol/L (98-107); Estimated Creatinine Clearance 23 ml/min; Glucose 133 mg/dl (70-99); Potassium 4.5 mmol/L (3.5-5.1); Sodium 133 mmol/L (135-145); eGFR 27.96
[2025-02-20] MEDS: PRANDIN 0.5 MG PO ×2 (08:50→17:37)
[2025-02-20] MEDS: PROCARDIA XL (EXTENDED RELEASE) 30 MG PO (08:50)
[2025-02-20] MEDS: SODIUM BICARBONATE 650 MG PO ×2 (08:51→19:36)
[2025-02-20] MEDS: LASIX 20 MG PO (08:51)
[2025-02-20] MEDS: HEPARIN 5000 UNITS SC ×2 (08:51→19:36)
[2025-02-20] MEDS: DICLOFENAC 1% TOPICAL GEL 1 GRAM TOPICAL ×2 (08:51→17:36)
[2025-02-20 11:18] VITALS: BP 126/61
[2025-02-20 12:00] LABS: Glucose - Point of Care 92 mg/dl (70-99)
[2025-02-20] MEDS: DICLOFENAC 1% TOPICAL GEL TOPICAL (12:08)
--- NOTE | 2025-02-20 13:07 | W.PN.HOSP.TC ---
Today's Communication/Plan
-
Consult ID for abx choices
Assessment / Plan
Assessment / Plan
Assessment/Plan
Symptomatic nephrolithiasis�9 mm stone within the distal left ureter at the pelvic inlet, associated with mild left hydroureteronephrosis; additional intrarenal stones on the left side (as per CT report)
Findings suggestive of xanthogranulomatous pyelonephritis of the right kidney, also seen on prior CT (as per CT report)
Tiny bubbles of air within the right renal collecting system, new compared to prior CT (as per CT report)
Complicated UTI
Leukocytosis
- Now s/p Left Ureteroscopy, Laser Lithotripsy, Basket Extraction of Stone Fragments on 02/19/[address] Kinsey
� CT of the abdomen and pelvis findings noted
� Follow cultures-mixed kyree noted raises concern for contamination
� IV ceftriaxone for now
� With xanthogranulomatous pyelonephritis and local lymphadenopathy I will treat with antibiotics follow-up with the renal pyelonephritis changes. She says she lost 196 pounds over 4-year. Which is intentional so I would be interested her renal
changes would be going forward and might need to consider further evaluation.
JEWELL on CKD
� Likely secondary to obstruction
� Avoid nephrotoxins
� Renal dose medications
Type 2 Diabetes Mellitus
- sliding scale insulin and accuchecks
- Diabetic Diet
Portal and retroperitoneal lymphadenopathy within the upper abdomen. Largest lymph node is located adjacent to the right adrenal gland, measuring 2 cm in diameter
Lymph nodes are unchanged compared to most recent prior study, however are new compared to prior CT dated 03/07/2019
-Above findings are from CT radiologist's report
-Will need outpatient follow-up
DVT prophylaxis: SCDs. Subq Heparin started evening of 02/19/25 (I confirmed with surgeon that it is okay to start at that time)
CODE STATUS: full code
Anticipated Discharge: 24 - 48 hours
Subjective/Interval History
-
Date of Service: February 20, 2025
Status post lithotripsy of the left ureteral stone and renal stones.
Denies any flank pain or dysuria. No hematuria noted. No fever or chills.
Tolerating diet. Denies shortness of breath.
Objective Data
-
Labs:
Laboratory Results
02/20/25
07:10
WBC 13.2 H
Hgb 10.7 L
Hct 34.1 L
Plt Count 404 H
Sodium 133 L
Potassium 4.5
Chloride 106
Carbon Dioxide 20 L
BUN 34 H
Creatinine 1.8 H
Glucose 133 H
Calcium 9.6
Vital Signs:
Vital Signs
Temp Pulse Resp BP Pulse Ox
98.2 F 72 20 126/61 95
02/20/25 11:18 02/20/25 11:18 02/20/25 11:18 02/20/25 11:18 02/20/25 11:18
I&O
02/19/25 02/20/25 02/21/25
06:59 06:59 06:59
Intake Total 550 / 550 530 / 530
Balance 550 / 550 530 / 530
Physical Exam
-
General: Comfortable
Respiratory: Clear to Auscultation and Non Labored Respirations; Negative Accessory Resp Muscle Use
Cardiac: Regular Rhythm and S1/S2; Negative Murmur
GI: Soft, Nontender, Nondistended and Normal Bowel Sounds
Genito-urinary: No Costovertebral Tender
Psych: Calm
Data Reviewed
-
Labs: Labs Reviewed by me
--- NOTE | 2025-02-20 14:52 | CON.ID ---
Addendum entered and electronically signed by Pau Childs MD 02/20/25 15:30:
I personally performed a history and physical exam of the patient and discussed management with the resident. I reviewed the resident's note and agree with most of the documented findings and plan of care HPI/CC.
# Complicated left UTI
# Left obstructive uropathy
# Leukocytosis improving
�� -s/p cysto, lithotripsy, stent placement with finding of purulent urine 02/19
�� - OR left stone cx gram stain: GPC, Cx pending.� ? Enterococcus
�� - Admission Ucx: 100K mixed kyree
�� - Repeat Ucx, then replace ceftriaxone with Unasyn 3g IV q12
�� - Trend WBC
# R Xanthogranulomatous pyelonephritis
-Present since 04/[address]
�� -Multiple chronic R renal stones
-Pt did have R abd pain on admission
�� - CT a/p new bubbles of air within R renal collecting system
�� - Admission Ucx: 100K mixed kyree
�� - Repeat Ucx, then replace ceftriaxone with Unasyn 3g IV q12
���� Previous proteus sensitive to ampicillin
�� -Extensive discussion regarding XGP. Nephrectomy is the best management.
� Complications of retained XGP include but not limited to: associated malignancy, development of fistula tract from kidney to surrounding organs, sepsis, recurrent UTI�s.� � Pt declines surgical intervention due to age, CKD3B, and preference
for quality of life. She does have health care directive. She states she is ready to rest in peace when the time comes. �
Original Note:
Consultation
-
Date/Time Consultation Requested: 02/20/2025
Date/Time Consultation Performed: 02/20/2025
Requesting Provider: Dr. Kg Loomis
Performing Provider: Dr. Pau Childs
Reason for Consultation: UTI
Chief Complaint / Past History
Chief Complaint
Left-sided abdominal pain
History of Present Illness
79-year-old female with a past medical history of presents to the [facility] emergency department on 02/18/2025 with worsening severe left-sided throbbing abdominal pain that started at 2 to 3 PM that day. The pain is not associated with
fever, vomiting, nausea, diarrhea, chills, hematuria, dysuria, urgency. Vitals in the ED initially show a temperature of 97.4, pulse of 87, respiratory rate 20, BP 150/69, O2 sat 93% on room air. Labs in the ED showed leukocytosis of 18.8, normal
electrolytes, BUN 32, creatinine of 2 with a baseline of 1.6, normal hemoglobin, glucose of 171. Urinalysis shows positive leukocyte esterase, 4+ occult blood, 30-40 RBC, more than 100 to WBC. Urine culture resulted in mixed kyree with possible
contamination on 02/18/2025. On abdominal/pelvis CT on 02/18/2025 there was a 9 mm stone within the distal left ureter with additional intra renal stones, xanthogranulomatous pyelonephritis of the right kidney, seen on prior CT, with tiny air bubbles
within the right renal collecting system which are new, portal and retroperitoneal lymphadenopathy in the upper abdomen measuring 2 cm which are unchanged from previous CT scan. Following this she was put on empiric ceftriaxone and then had a left
ureteroscopy, laser lithotripsy, basket extraction on 02/19/[address] Kinsey.
Patient has previous history of staghorn calculus in May where she was admitted for sepsis.
Past History
Past Medical History: Other
Additional Past Medical History:
kidney stone, CKD stage III, hypertension, diabetes mellitus, obesity, gout, arthritis, anemia, hyperlipidemia
Past Surgical History: Other
Additional Past Surgical History:
Hysterectomy secondary to cervical cancer
D&C
Abdominal hernia repair with mesh 1994
Removal of infected mesh from hernia repair 2018
Cholecystectomy
Abscess 2005
Carpal tunnel syndrome
Allergy History:
adhesive Allergy (Verified 02/18/25 16:58)
Rash
adhesive tape Allergy (Verified 02/18/25 16:58)
Skin Breakdown
bee venom protein (honey bee) Allergy (Verified 02/18/25 16:58)
Difficulty Breathing, severe swelling
Iodinated Contrast Media Allergy (Verified 02/18/25 16:58)
RASH, SOB
latex Allergy (Verified 02/18/25 16:58)
RASH, ITCHING
levofloxacin (From Levaquin) Allergy (Verified 02/18/25 16:58)
neuropathy of hands and feet
nylon Allergy (Verified 02/18/25 16:58)
Rash, Itching
pepper (genus Capsicum) Allergy (Verified 02/18/25 16:58)
SOB, Facial swell
pollen extracts Allergy (Verified 02/18/25 16:58)
post nasal drip, congestion
walnut Allergy (Verified 02/18/25 16:58)
Difficulty Breathing
wool Allergy (Verified 02/18/25 16:58)
Rash, Itching
Medications Reviewed: Yes
Current Antibiotics:
Ceftriaxone
Social History
Tobacco: Non-Smoker
Alcohol: None
Drug: None
Personal: Single
Living: With Family
Family History
Family History: Not Pertinent
Review of Systems
Review of Systems
General: Negative Fever or Chills
HEENT: Negative Lymphadenopathy
Cardiovascular: Negative Chest Pain or Dyspnea
Respiratory: Negative Cough
Gasteroenterology: Negative Weight Loss, Nausea, Vomiting or Diarrhea
Genital / Urological: Negative Dysuria, Hematuria, Stones or Flank Pain
Endocrine: Negative Weakness or Fatigue
Neurological: Negative Headache or Dizziness
All systems: All other systems were reviewed and were negative
Vital Signs
Temp Pulse Resp BP Pulse Ox
98.2 F 72 20 126/61 95
02/20/25 11:18 02/20/25 11:18 02/20/25 11:18 02/20/25 11:18 02/20/25 11:18
Physical Exam
Physical Exam
Constitutional: No Acute Distress and Obese
Cardiovascular: Regular Rate and S1/S2
Pulmonary: Clear and Symmetric
Gastrointestinal: Soft, Non Tender, Non Distended and Normal Bowel Sounds
Genito-Urinary: Negative Suprapubic Tenderness or CVA Tenderness
Skin: Warm and Dry
Neurological: AO x 3
Lab / Diagnostic Study Results
02/20/25 07:10
02/20/25 07:10
Abs Immat Gran (auto) 0.1 10^3/uL (0-0.05) H 02/20/25 07:10
Absolute Neuts (auto) 11.8 10^3/uL (1.4-6.5) H 02/20/25 07:10
Absolute Lymphs (auto) 1.0 10^3/uL (1.2-3.4) L 02/20/25 07:10
Absolute Monos (auto) 0.3 10^3/uL (0.1-0.6) 02/20/25 07:10
Absolute Basos (auto) 0.0 10^3/uL (0-0.2) 02/20/25 07:10
Immature Gran % 0.8 % (0-0.5) H 02/20/25 07:10
Neutrophils % 88.6 % (42.2-75.2) H 02/20/25 07:10
Lymphocytes % 7.8 % (20.5-51.1) L 02/20/25 07:10
Monocytes % 2.6 % (1.7-9.3) 02/20/25 07:10
Eosinophils % 0.0 % (0-6) 02/20/25 07:10
Basophils % 0.2 % (0-2) 02/20/25 07:10
Ur Squamous Epith Cells 0-2 /LPF (Few) 02/18/25 22:01
Microbiology Results
Micro:
02/19/25 11:50 Wound Culture - Preliminary
Surgical Wound Gram Stain - Preliminary
02/18/25 22:01 Urine Culture - Final
Urine
Abdominal/pelvis CT on 02/18/2025:
IMPRESSION:
1. 9 mm stone within the distal left ureter at the pelvic inlet, associated with mild left hydroureteronephrosis. Additional intrarenal stones on the left side as detailed above.
2. Findings suggestive of xanthogranulomatous pyelonephritis of the right kidney, also seen on prior CT. Tiny bubbles of air within the right renal collecting system, new compared to prior CT.
3. Portal and retroperitoneal lymphadenopathy within the upper abdomen. Largest lymph node is located adjacent to the right adrenal gland, measuring 2 cm in diameter, best seen on series 201 image 28. Lymph nodes are unchanged compared to most
recent prior study, however are new compared to prior CT dated 03/07/2019.
4. No evidence of acute cholecystitis. Heterogeneous attenuation within the gallbladder, which may be related to gallbladder sludge. Consider right upper quadrant ultrasound for further evaluation.
Assessment / Plan
Distal left ureteral nephrolithiasis (9 mm stone at the pelvic inlet associated with mild left hydroureteronephrosis)
Status post day 1 left ureteroscopy, laser lithotripsy, basket extraction on 02/19/2025
- Physical exam shows no suprapubic tenderness, costovertebral tenderness, abnormal abdominal exam findings.
- Nephrolithiasis is confirmed on abdominal/pelvis CT scan
- Repeat urine culture as first one shows probable contamination
- Treat with renally dosed Unasyn 3 g every 12 hours (preliminary wound culture showing a rare gram-positive cocci which could be Enterococcus based on previous cultures, sensitive to ampicillin), after urine culture specimen is collected
- Trend temperature and CBC
- Await stone culture
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
-On physical exam no right sided flank pain, costovertebral tenderness, urinary symptoms,
- Confirmed on CT scan of abdomen/pelvis, documented in previous scans as well as other is a chronic process
- The xanthogranulomatous pyelonephritis is a chronic process however the air bubbles are new and could resemble gas-forming bacteria
- Operative findings by surgeon state purulent urine
- Based on the CT abdomen findings and operative findings we will treat with Unasyn
-Explained to the patient that nephrectomy is the definitive cure for xanthogranulomatous pyelonephritis and that inflammation can spread and cause loss of kidney function with infection/sepsis, however patient states does not want to do surgery
after understanding benefits/risks.
- Trend temperature and CBC
- Urology follow-up outpatient
[2025-02-20 15:00] VITALS: BP 122/57
[2025-02-20 16:57] LABS: Glucose - Point of Care 127 mg/dl (70-99)
[2025-02-20] MEDS: UNASYN IV (17:36)
--- NOTE | 2025-02-20 17:37 | CM ---
Discharge POC: Resume outpatient PT at [facility] in [facility] 3 times/week.
[2025-02-20] MEDS: ZETIA 10 MG PO (21:48)
[2025-02-20] MEDS: DICLOFENAC 1% TOPICAL GEL 100 GRAM TOPICAL (21:49)
[2025-02-20 21:52] LABS: Glucose - Point of Care 114 mg/dl (70-99)
[2025-02-20 23:13] VITALS: BP 124/55
[2025-02-20] MEDS: STERILE WATER FOR INJECTION IV (23:21)
[2025-02-21] MEDS: UNASYN IV ×2 (06:01→17:08)
[2025-02-21 06:29] VITALS: BMI 34.4
[2025-02-21 07:25] VITALS: BP 150/58
[2025-02-21 07:50] LABS: Glucose - Point of Care 80 mg/dl (70-99)
[2025-02-21] MEDS: NOVOLOG FLEXPEN-LOW RESISTANCE SC ×3 (08:17→16:54)
[2025-02-21] MEDS: DICLOFENAC 1% TOPICAL GEL 100 GRAM TOPICAL ×4 (08:33→21:32)
[2025-02-21] MEDS: SODIUM BICARBONATE 650 MG PO ×2 (08:35→19:39)
[2025-02-21] MEDS: PRANDIN 0.5 MG PO ×2 (08:35→17:08)
[2025-02-21] MEDS: PROCARDIA XL (EXTENDED RELEASE) 30 MG PO (08:35)
[2025-02-21] MEDS: LASIX 20 MG PO (08:35)
[2025-02-21] MEDS: HEPARIN 5000 UNITS SC ×2 (08:36→19:39)
[2025-02-21 09:00] LABS: Hematocrit 34.6 % (37.0-47.0); Hemoglobin 10.2 g/dL (12.0-16.0); Mean Corp Hgb Conc. 29.5 g/dL (33.0-37.0); Mean Corpuscular Volume 88.0 fL (81.0-99.0); Nucleated Red Blood Cells % 0 %; Platelet Count 370 10^3/uL (130-400); Red Cell Dist. Width 16.2 % (11.5-14.5)
--- NOTE | 2025-02-21 10:07 | W.PN.ID1 ---
Date of Service
Date of Service: February 21, 2025
Today's Communication
Continue Unasyn pending cx data.
Assessment / Plan
# Complicated left UTI
# Left obstructive uropathy
# Leukocytosis resolved
�� -s/p cysto, lithotripsy, stent placement with finding of purulent urine 02/19
�� - OR left stone cx gram stain: GPC, Cx Enterococcus, Proteus
�� - Admission Ucx: 100K mixed kyree
�� - Repeat Ucx pending
�� - Continue Unasyn (d2) pending sensitivity result.
# R Xanthogranulomatous pyelonephritis
-Present since 04/[address]
�� -Multiple chronic R renal stones
�� - CT a/p new bubbles of air within R renal collecting system
�� - Admission Ucx: 100K mixed kyree
�� - Repeat Ucx pending
���- Continue Unasyn (d2)
�� -02/20 I had extensive discussion regarding XGP. Nephrectomy is the best management. Complications of retained XGP include but not limited to: associated malignancy, development of fistula tract from kidney to surrounding organs, sepsis,
recurrent UTI�s.�Pt declines surgical intervention due to age, CKD3B, and preference for quality of life. She does have health care directive. She states she is ready to rest in peace when the time comes. �
Chief Complaint
-: UTI
Subjective / Review of Systems
c/o edema
Vital Signs / Physical Exam
Vital Signs
Vital Signs
Temp Pulse Resp BP Pulse Ox
97.6 F 64 16 150/51 93
02/21/25 07:25 02/21/25 08:35 02/21/25 07:25 02/21/25 08:35 02/21/25 07:25
Physical Exam
Constitutional: No Acute Distress and Comfortable
Cardiovascular: Regular Rate and S1/S2
Pulmonary: Clear
Gastrointestinal: Soft, Non Tender and Non Distended
Genito-Urinary: Negative CVA Tenderness
Extremities: Edema (1+ BLE)
Neurological: AO x 3
Objective Data
Lab Data
Lab Results
02/21/25 07:35
Estimated Creat Clear 23 ml/min 02/20/25 07:10
Total Bilirubin 0.5 mg/dl (0.2-1.3) 02/18/25 18:20
AST 15 U/L (14-36) 02/18/25 18:20
ALT < 10 U/L (0-35) 02/18/25 18:20
Alkaline Phosphatase 75 U/L (38-126) 02/18/25 18:20
Most recent labs reviewed.
Micro Results:
02/19/25 11:50 Wound Culture - Preliminary
Surgical Wound Enterococcus species
Proteus species
Gram Stain - Preliminary
02/20/25 17:36 Urine Culture - Pending
Urine
02/18/25 22:01 Urine Culture - Final
Urine
Abdominal/pelvis CT on 02/18/2025:
IMPRESSION:
1. 9 mm stone within the distal left ureter at the pelvic inlet, associated with mild left hydroureteronephrosis. Additional intrarenal stones on the left side as detailed above.
2. Findings suggestive of xanthogranulomatous pyelonephritis of the right kidney, also seen on prior CT. Tiny bubbles of air within the right renal collecting system, new compared to prior CT.
3. Portal and retroperitoneal lymphadenopathy within the upper abdomen. Largest lymph node is located adjacent to the right adrenal gland, measuring 2 cm in diameter, best seen on series 201 image 28. Lymph nodes are unchanged compared to most
recent prior study, however are new compared to prior CT dated 03/07/2019.
4. No evidence of acute cholecystitis. Heterogeneous attenuation within the gallbladder, which may be related to gallbladder sludge. Consider right upper quadrant ultrasound for further evaluation.
[2025-02-21 10:09] LABS: Blood Urea Nitrogen 36 mg/dl (7-17); Calcium 9.2 mg/dl (8.4-10.2); Carbon Dioxide 25 mmol/L (22-30); Chloride 103 mmol/L (98-107); Estimated Creatinine Clearance 23 ml/min; Glucose 65 mg/dl (70-99); Potassium 4.6 mmol/L (3.5-5.1); Sodium 133 mmol/L (135-145); eGFR 26.20
--- NOTE | 2025-02-21 11:00 | PTCARENOTE ---
Morning RN left due to sickness, took over as primary RN.
[2025-02-21 11:45] VITALS: BP 130/59
[2025-02-21 12:13] LABS: Glucose - Point of Care 93 mg/dl (70-99)
--- NOTE | 2025-02-21 13:59 | W.PN.HOSP.TC ---
Today's Communication/Plan
-
CW ABX per ID
DC planning
Assessment / Plan
Assessment / Plan
Assessment/Plan
Symptomatic nephrolithiasis�9 mm stone within the distal left ureter at the pelvic inlet, associated with mild left hydroureteronephrosis; additional intrarenal stones on the left side (as per CT report)
Findings suggestive of xanthogranulomatous pyelonephritis of the right kidney, also seen on prior CT (as per CT report)
Tiny bubbles of air within the right renal collecting system, new compared to prior CT (as per CT report)
Complicated UTI
Leukocytosis
- Now s/p Left Ureteroscopy, Laser Lithotripsy, Basket Extraction of Stone Fragments on 02/19/[address] Kinsey
� CT of the abdomen and pelvis findings noted
� Follow cultures-mixed kyree noted raises concern for contamination
� IV ceftriaxone for now
� With xanthogranulomatous pyelonephritis and local lymphadenopathy I will treat with antibiotics follow-up . She says she lost 196 pounds over 4-year Which is intentional so I would be interested her renal changes would be going forward and might
need to consider further evaluation.
- Patient tells me the right kidney was noted to be abnormal in April as well. She tells me her engine builder was considering biopsy. She had a chat with ID yesterday who are recommending evaluation for nephrectomy. She says 6 years ago she had
a surgery for mesh removal and had complicated postop course and and would not want to go through major surgeries after that experience. She understands the pathology of the right kidney which was noted before. She is declining any surgical
intervention. She was advised to follow with a urologist who could tell more about right nephrectomy.
JEWELL on CKD
� Likely secondary to obstruction
� Avoid nephrotoxins
� Renal dose medications
Type 2 Diabetes Mellitus
- sliding scale insulin and accuchecks
- Diabetic Diet
Portal and retroperitoneal lymphadenopathy within the upper abdomen. Largest lymph node is located adjacent to the right adrenal gland, measuring 2 cm in diameter
Lymph nodes are unchanged compared to most recent prior study, however are new compared to prior CT dated 03/07/2019
-Above findings are from CT radiologist's report
-Will need outpatient follow-up
DVT prophylaxis: SCDs. Subq Heparin started evening of 02/19/25 (I confirmed with surgeon that it is okay to start at that time)
CODE STATUS: full code
Anticipated Discharge: 24 - 48 hours
Subjective/Interval History
-
Date of Service: February 21, 2025
Voicing no specific complaints.
Denies any dysuria, frequency. Denies any abdominal or flank pain.
Denies any fever or chills.
Tolerating diet.
Objective Data
-
Labs:
Laboratory Results
02/21/25
07:35
WBC 10.5
Hgb 10.2 L
Hct 34.6 L
Plt Count 370
Sodium 133 L
Potassium 4.6
Chloride 103
Carbon Dioxide 25
BUN 36 H
Creatinine 1.9 H
Glucose 65 L
Calcium 9.2
Vital Signs:
Vital Signs
Temp Pulse Resp BP Pulse Ox
97.5 F 63 16 130/59 98
02/21/25 11:45 02/21/25 11:45 02/21/25 11:45 02/21/25 11:45 02/21/25 11:45
I&O
02/20/25 02/21/25 02/22/25
06:59 06:59 06:59
Intake Total 530 / 530 0 / 0 660 / 660
Balance 530 / 530 1860 / 1860 660 / 660
Physical Exam
-
General: No Apparent Distress
Respiratory: Non Labored Respirations; Negative Accessory Resp Muscle Use
Cardiac: Regular Rhythm and S1/S2; Negative Tachycardic
GI: Soft, Nontender, Nondistended and Normal Bowel Sounds
Neuro: AO x 3
Psych: Calm
Data Reviewed
-
Labs: Labs Reviewed by me
[2025-02-21 15:25] VITALS: BP 128/66
[2025-02-21 16:50] LABS: Glucose - Point of Care 112 mg/dl (70-99)
--- NOTE | 2025-02-21 17:30 | CM ---
Discharge POC: Remains resume outpatient PT at [facility] [place] in [facility] 3 times/week.
[2025-02-21] MEDS: ZETIA 10 MG PO (21:31)
[2025-02-21] MEDS: STERILE WATER FOR INJECTION IV (21:32)
[2025-02-21 22:35] LABS: Glucose - Point of Care 106 mg/dl (70-99)
[2025-02-21 23:24] VITALS: BP 162/73
[2025-02-22] MEDS: UNASYN IV (05:36)
[2025-02-22 06:42] VITALS: BMI 33.4
[2025-02-22 07:25] LABS: Glucose - Point of Care 87 mg/dl (70-99)
[2025-02-22 07:45] VITALS: BP 160/72
[2025-02-22] MEDS: NOVOLOG FLEXPEN-LOW RESISTANCE SC ×2 (07:49→11:57)
[2025-02-22] MEDS: SODIUM BICARBONATE 650 MG PO (09:09)
[2025-02-22] MEDS: PROCARDIA XL (EXTENDED RELEASE) 30 MG PO (09:10)
[2025-02-22] MEDS: HEPARIN 5000 UNITS SC (09:10)
[2025-02-22] MEDS: PRANDIN 0.5 MG PO (09:10)
[2025-02-22] MEDS: LASIX 20 MG PO (09:10)
[2025-02-22] MEDS: DICLOFENAC 1% TOPICAL GEL 100 GRAM TOPICAL (09:11)
--- NOTE | 2025-02-22 10:27 | W.PN.HOSP.TC ---
Today's Communication/Plan
-
Continue with Unasyn
DC when okay from ID standpoint
Assessment / Plan
Assessment / Plan
Assessment/Plan
Symptomatic nephrolithiasis�9 mm stone within the distal left ureter at the pelvic inlet, associated with mild left hydroureteronephrosis; additional intrarenal stones on the left side (as per CT report)
Findings suggestive of xanthogranulomatous pyelonephritis of the right kidney, also seen on prior CT (as per CT report)
Tiny bubbles of air within the right renal collecting system, new compared to prior CT (as per CT report)
Complicated UTI
Leukocytosis
- Now s/p Left Ureteroscopy, Laser Lithotripsy, Basket Extraction of Stone Fragments on 02/19/[address] Kinsey
� CT of the abdomen and pelvis findings noted
� Follow cultures-mixed kyree noted raises concern for contamination. Repeat cultures pending
� With xanthogranulomatous pyelonephritis and local lymphadenopathy I will treat with antibiotics follow-up . She says she lost 196 pounds over 4-year Which is intentional so I would be interested her renal changes would be going forward and
might need to consider further evaluation. Continue with Unasyn per ID
- Patient tells me the right kidney was noted to be abnormal in April as well. 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 She had a chat with ID yesterday who are recommending evaluation for nephrectomy. She says 6 years ago she had
a surgery for mesh removal and had complicated postop course and and would not want to go through major surgeries after that experience. She understands the pathology of the right kidney which was noted before. She is declining any surgical
intervention. She was advised to follow with a urologist who could tell more about right nephrectomy.
JEWELL on CKD
� Likely secondary to obstruction
� Avoid nephrotoxins
� Renal dose medications
- Improved Cr
- Follow with repeat BMP as OP. Pt has active follow up with nephro for her CKD
Type 2 Diabetes Mellitus
- sliding scale insulin and accuchecks
- Diabetic Diet
Portal and retroperitoneal lymphadenopathy within the upper abdomen. Largest lymph node is located adjacent to the right adrenal gland, measuring 2 cm in diameter
Lymph nodes are unchanged compared to most recent prior study, however are new compared to prior CT dated 03/07/2019
-Above findings are from CT radiologist's report
-Will need outpatient follow-up
DVT prophylaxis: SCDs. Subq Heparin started evening of 02/19/25 (I confirmed with surgeon that it is okay to start at that time)
CODE STATUS: full code
Anticipated Discharge: Today
Subjective/Interval History
-
Date of Service: February 22, 2025
Slept well for the first time in many days, even better than at home.
No fever or chills.
No dysuria or frequency of urine. No flank pain or abdominal pain. Tolerating diet. No chest pain or shortness of breath.
Objective Data
-
Vital Signs:
Vital Signs
Temp Pulse Resp BP Pulse Ox
97.6 F 79 16 160/72 96
02/22/25 07:45 02/22/25 07:45 02/22/25 07:45 02/22/25 07:45 02/22/25 07:45
I&O
02/21/25 02/22/25 02/23/25
06:59 06:59 06:59
Intake Total 1859
Balance 1859
Physical Exam
-
General: Comfortable
Respiratory: Clear to Auscultation and Non Labored Respirations; Negative Accessory Resp Muscle Use
Cardiac: Regular Rhythm and S1/S2
Neuro: AO x 3
Psych: Calm
--- NOTE | 2025-02-22 11:01 | W.PN.URO.CBU ---
Today's Communication / Plan
-
ABX pr ID
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
Assessment / Plan
-
Left Ureteral Stone, obstructing
Right Staghorn Renal Calculus - Xanthogranulomatous Pyelonephritis
Chronic complicated UTI
Left Renal Calculi, non-obstructing s/p Left Ureteroscopy, Laser Lithotripsy, Basket Extraction of Stone Fragments
Diagnosis
-
Date of Service: February 22, 2025
-
Patient Diagnosis:
Post Op Day:
Patient Diagnosis:
Left Ureteral Stone, obstructing
Right Staghorn Renal Calculus - Xanthogranulomatous Pyelonephritis
Chronic UTI
Left Renal Calculi, non-obstructing
s/p Left Ureteroscopy, Laser Lithotripsy, Basket Extraction of Stone Fragments on 02/19/2025
Objective
-
Vital Signs
Temp Pulse Resp BP Pulse Ox
97.6 F 79 16 160/72 96
02/22/25 07:45 02/22/25 07:45 02/22/25 07:45 02/22/25 07:45 02/22/25 07:45
Intake and Output
02/21/25 02/22/25 02/23/25
06:59 06:59 06:59
Intake Total 1859
Balance 1859
Intake:
Oral fluids 1740 / 1740 1796
IV piggybacks 120 / 120 120 / 120
Other:
How many times incontinent 1
SATURATED amount urine
Number of approximated MODERATE 3 3
amounts of urine
Number of approximated LARGE 3
amounts of urine
Laboratory Results
02/21/25 07:35
12/09/25 07:35
Physical Exam
-
General - well developed, well nourished, no acute distress
Chest - clear bilaterally
Abdomen - soft, non-tender, positive bowel sounds, no CVAT, no incisional pain or distention
Genitalia - normal
Rectal - normal
Skin - warm & dry with no rash
Neuro - AOx3, no motor deficits
Extremities - no clubbing, no cyanosis, no edema
Incision - clean, dry
Dressing - clean, dry, intact
[2025-02-22 11:43] LABS: Glucose - Point of Care 114 mg/dl (70-99)
--- NOTE | 2025-02-22 15:05 | W.PN.ID1 ---
Addendum entered and electronically signed by Pau Childs MD 02/22/25 15:17:
I saw and evaluated the patient. I reviewed the resident�s note and agree with most of the findings and plan as documented in the resident�s note.
See update note.
Original Note:
Date of Service
Date of Service: February 22, 2025
Today's Communication
- discharge patient on Augmentin 500 mg q12 x 4weeks
Assessment / Plan
Distal left ureteral nephrolithiasis (9 mm stone at the pelvic inlet associated with mild left hydroureteronephrosis)
Status post day 1 left ureteroscopy, laser lithotripsy, basket extraction on 02/19/2025
- Physical exam shows no suprapubic tenderness, costovertebral tenderness, abnormal abdominal exam findings.
- Nephrolithiasis is confirmed on abdominal/pelvis CT scan
- Repeat urine culture shows Proteus Mirabilis and Enterococcus Faecalis. Wound culture also grows Proteus Mirabilis and Enterococcus Faecalis.
- Switch from Unasyn to step down Augmentin 500 mg Q12 x 4 weeks
- CBC and CMP outpatient with PCP in 1 week
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
-On physical exam no right sided flank pain, costovertebral tenderness, urinary symptoms,
- Confirmed on CT scan of abdomen/pelvis, documented in previous scans as well as other is a chronic process
- The xanthogranulomatous pyelonephritis is a chronic process however the air bubbles are new and could resemble gas-forming bacteria
- Operative findings by surgeon state purulent urine
-Explained to the patient that nephrectomy is the definitive cure for xanthogranulomatous pyelonephritis and that inflammation can spread and cause loss of kidney function with infection/sepsis, however patient states does not want to do surgery
after understanding benefits/risks.
- Continue with Augmentin 500 mg q12 x 4 weeks as step down therapy
- CBC CMP outpatient with PCP in 1 week
- Urology follow-up outpatient
Chief Complaint
-: UTI
Subjective / Review of Systems
Review of Systems: No Fever, No Chills, No Stiff Neck, No Cough, Chest Pain, Palpitations, No Abdominal Pain, No Nausea, No Diarrhea, No Dysuria and No Joint Pain
Vital Signs / Physical Exam
Vital Signs
Vital Signs
Temp Pulse Resp BP Pulse Ox
97.6 F 79 16 160/72 96
02/22/25 07:45 02/22/25 07:45 02/22/25 07:45 02/22/25 07:45 02/22/25 07:45
Physical Exam
Constitutional: No Acute Distress
Cardiovascular: Regular Rate and S1/S2
Pulmonary: Clear and Symmetric
Gastrointestinal: Soft, Non Tender, Non Distended and Normal Bowel Sounds
Extremities: Negative Edema
Skin: Warm and Dry
Neurological: AO x 3
Psychological: Calm
Objective Data
Lab Data
Lab Results
02/21/25 07:35
02/21/25 07:35
Estimated Creat Clear 23 ml/min 02/21/25 07:35
Total Bilirubin 0.5 mg/dl (0.2-1.3) 02/18/25 18:20
AST 15 U/L (14-36) 02/18/25 18:20
ALT < 10 U/L (0-35) 02/18/25 18:20
Alkaline Phosphatase 75 U/L (38-126) 02/18/25 18:20
Most recent labs reviewed.
Micro Results:
02/20/25 17:36 Urine Culture - Final
Urine Proteus mirabilis
Enterococcus faecalis
02/19/25 11:50 Wound Culture - Final
Surgical Wound Enterococcus faecalis
Proteus mirabilis
Gram Stain - Final
02/18/25 22:01 Urine Culture - Final
Urine
Abdominal/pelvis CT on 02/18/2025:
IMPRESSION:
1. 9 mm stone within the distal left ureter at the pelvic inlet, associated with mild left hydroureteronephrosis. Additional intrarenal stones on the left side as detailed above.
2. Findings suggestive of xanthogranulomatous pyelonephritis of the right kidney, also seen on prior CT. Tiny bubbles of air within the right renal collecting system, new compared to prior CT.
3. Portal and retroperitoneal lymphadenopathy within the upper abdomen. Largest lymph node is located adjacent to the right adrenal gland, measuring 2 cm in diameter, best seen on series 201 image 28. Lymph nodes are unchanged compared to most
recent prior study, however are new compared to prior CT dated 03/07/2019.
4. No evidence of acute cholecystitis. Heterogeneous attenuation within the gallbladder, which may be related to gallbladder sludge. Consider right upper quadrant ultrasound for further evaluation.
--- NOTE | 2025-02-22 15:08 | W.PN.UPDATE ---
Update Note
Progress Note Update
I saw and evaluated the patient. I reviewed the resident�s note and agree with most of the findings and plan as documented in the resident�s note.
# Complicated left UTI
# Left obstructive uropathy
# Leukocytosis resolved
�� -s/p cysto, lithotripsy, stent placement with finding of purulent urine 02/19
�� - OR left stone cx gram stain: GPC, Cx Enterococcus, Proteus
�� - Admission Ucx: 100K mixed kyree
�� - Repeat Ucx Enterococcus, Proteus
�� - Transition Unasyn(d3) to Augmentin 500mg po bid x 4 weeks
# R Xanthogranulomatous pyelonephritis
-Present since 04/[address]
�� -Multiple chronic R renal stones
�� - CT a/p new bubbles of air within R renal collecting system
�� - Admission Ucx: 100K mixed kyree
�� - Repeat Ucx Enterococcus, Proteus
���- Transition Unasyn(d3) to Augmentin 500mg po bid x 4 weeks
�� -02/20 I had extensive discussion regarding XGP. Nephrectomy is the best management. Complications of retained XGP include but not limited to: associated malignancy, development of fistula tract from kidney to surrounding organs, sepsis,
recurrent UTI�s.�Pt declines surgical intervention due to age, CKD3B, and preference for quality of life. She does have health care directive. She states she is ready to rest in peace when the time comes. �
Case discussed with Dr. Loomis.
[2025-02-22 15:30] VITALS: BP 144/60
--- NOTE | 2025-02-22 15:59 | CM ---
Patient was discharged home today. She is set up with outpatient PT at [facility] in [place]. IMM given.
Paln :Home with outpatient PT
[2025-02-24 23:53] LABS: Stone Analysis Mass 9 mg
== END 2025-02-22 15:49 | disposition home or self-care (01) | DRG 660 ==
LOC: 2 SOUTH 00:50
PROVIDERS: Hospitalist; Nurse Practitioner; ADMITTING PHYSICIAN Internal Medicine; ATTENDING PHYSICIAN Internal Medicine; CONSULT PHYSICIAN Specialist; EMERGENCY PHYSICIAN Student in an Organized Health Care Education/Training Program; FAMILY PHYSICIAN Family Medicine; OTHER PHYSICIAN Internal Medicine Infectious Disease
PROC: 0T778DZ Dilation of Left Ureter with Intraluminal Device, Via Natural or Artificial Opening Endoscopic (ICD-10-PCS; 2025-02-19)
PROC: 0TC78ZZ Extirpation of Matter from Left Ureter, Via Natural or Artificial Opening Endoscopic (ICD-10-PCS; 2025-02-19)
DX: N11.1 Chronic obstructive pyelonephritis (principal); D76.3 Other histiocytosis syndromes; N17.9 Acute kidney failure, unspecified; N20.2 Calculus of kidney with calculus of ureter; J44.9 Chronic obstructive pulmonary disease, unspecified; N18.32 Chronic kidney disease, stage 3b; I12.9 Hypertensive chronic kidney disease with stage 1 through stage 4 chronic kidney disease, or unspecified chronic kidney disease; E78.5 Hyperlipidemia, unspecified; E11.22 Type 2 diabetes mellitus with diabetic chronic kidney disease; M10.9 Gout, unspecified; E66.9 Obesity, unspecified; M19.90 Unspecified osteoarthritis, unspecified site; B96.4 Proteus (mirabilis) (morganii) as the cause of diseases classified elsewhere; R59.0 Localized enlarged lymph nodes; Z60.2 Problems related to living alone; Z87.440 Personal history of urinary (tract) infections; Z90.49 Acquired absence of other specified parts of digestive tract; Z87.891 Personal history of nicotine dependence; Z87.442 Personal history of urinary calculi; Z90.710 Acquired absence of both cervix and uterus; Z85.42 Personal history of malignant neoplasm of other parts of uterus; Z88.1 Allergy status to other antibiotic agents; Z91.030 Bee allergy status; Z91.041 Radiographic dye allergy status; Z91.040 Latex allergy status; Z91.018 Allergy to other foods; Z88.8 Allergy status to other drugs, medicaments and biological substances; Z91.048 Other nonmedicinal substance allergy status; Z79.899 Other long term (current) drug therapy; Z68.33 Body mass index [BMI] 33.0-33.9, adult
CPT/HCPCS: 51798; 74018; 74176; 76000; 80048; 80053; 81003; 81015; 82365; 82962; 85025; 85027; 87070; 87071; 87077; 87086; 87186; 87205; 96374; 96375; 99285